=== PATIENT | female | born 1950 | race African-American/Black ===

== ENCOUNTER 2017-06-04 14:06 | Emergency (ER) | payer MEDICARE, OTHER ==
[~2017-06-04] VITALS: Ht 165.1 cm; Wt 87.1 kg
[~2017-06-04 14:06] MED LIST: LANTUS SOL100 UNIT/1 SUBQ; LIPITOR80 MG ORAL; NOVOLOG100 UNIT/3 SUBQ
--- NOTE | 2017-06-04 14:29 | Emergency Room Report ---
History of Present Illness General Chief Complaint: Dizziness Source: Patient, EMS Present Illness HPI 67YOF BIBEMS for dizziness Patient has had 2x episode of dizziness since this morning. Usually resolves when she sits down. Occurs when standing. happened at [employer] Patient believes associated with "its really hot out" Didnt drink enough water today Didnt take HTN or DM meds because "I didnt eat yet" so thats why she was at [employer] EMS states SBP was 80s. Glucose 120 BP improved with IV fluid given Currently has no complaints. Allergies: Coded Allergies: ASPIRIN (Verified Allergy, Unknown, 09/26/16) METFORMIN (Verified Allergy, Unknown, 09/26/16) Patient History Past Medical History: DM, HTN Past Surgical History: none Pertinent Family History: none Social History: Denies: alcohol use, drug use, smoking Now: No Immunizations: UTD Reviewed Nursing Documentation: PMH: Agreed, PSxH: Agreed Nursing Documentation-PMH Hx Hypertension: Yes Hx Diabetes: Yes Review of Systems All Other Systems: negative except mentioned in HPI Physical Exam Vital Signs Date Time Temp Pulse Resp B/P Pulse Ox O2 Delivery O2 Flow Rate FiO2 06/04/17 14:00 98.4 74 18 113/58 97 Sp02 EP Interpretation: reviewed, normal General Appearance: normal inspection, well appearing, no apparent distress, alert, GCS 15, non-toxic, other - Well appearing elderly lady, laughing, talking , in no acute distress Head: normocephalic, atraumatic Eyes: bilateral eye EOMI, bilateral eye PERRL ENT: normal ENT inspection, hearing grossly normal, normal voice Neck: normal inspection, full range of motion, supple, no bony tend Respiratory: normal inspection, lungs clear, normal breath sounds, no respiratory distress, no retraction, no wheezing Cardiovascular #1: regular rate, rhythm, no edema Gastrointestinal: normal inspection, normal bowel sounds, non tender, soft, no guarding, no hernia Genitourinary: no CVA tenderness Musculoskeletal: normal inspection, back normal, normal range of motion, Mahendra' s Sign negative Neurologic: normal inspection, alert, oriented x3, responsive, controller coal or ore III-XII nml as tested, motor strength/tone normal, speech normal Psychiatric: normal inspection, judgement/insight normal, mood/affect normal Skin: normal inspection, normal color, no rash Medical Decision Making Diagnostic Impression: Primary Impression: Dizziness Additional Impressions: Hypotension Qualified Codes: I95.9 - Hypotension, unspecified Dehydration MATEO (acute kidney injury) ER Course Dizziness, hypotension - VSS in ED. Not hypotensive - Elevated serumCr supports Dx of hypotension as cause of dizziness - Improved serumCr after 1L NS - NIHSS 0. Low suspicion for CVA as cause of dizziness - ECG is NSR. Troponin 0. Unlikely ACS as cause of dizziness - Advised PMD followup tomorrow or Thursday to recheck serumCr - given copy of labs DC home EKG Diagnostic Results Rate: normal Rhythm: NSR ST Segments: no acute changes ASA given to the pt in ED: No Rhythm Strip Diag. Results EP Interpretation: yes Rate: 73 Rhythm: NSR, no PVC's, no ectopy Chest X-Ray Diagnostic Results Chest X-Ray Diagnostic Results : Chest X-Ray Ordered: Yes # of Views/Limited/Complete: 1 View Indication: Other - Dizziness EP Interpretation: Yes Interpretation: no consolidation, no effusion, no pneumothorax, no acute cardiopulmonary disease Impression: No acute disease Interpreting ER Provider: Electronically signed by Dr Colvin Last Vital Signs Date Time Temp Pulse Resp B/P Pulse Ox O2 Delivery O2 Flow Rate FiO2 06/04/17 14:00 98.4 74 18 113/58 97 Status: improved Disposition: HOME, SELF-CARE ELIEZER COLVIN M.D. Jun 04, 2017 14:29
[2017-06-04 14:56] LABS: EOSINOPHILS % (AUTO) 0.8 % (0.0-3.0); LYMPHOCYTES % (AUTO) 30.9 % (20.0-45.0); MEAN CORPUSCULAR HEMOGLOBIN 32.1 PG (27.0-31.0); MEAN CORPUSCULAR VOLUME 94 FL (80-99); MEAN PLATELET VOLUME 8.1 FL (6.5-10.1); MONOCYTES % (AUTO) 6.8 % (1.0-10.0); NEUTROPHILS % (AUTO) 60.5 % (45.0-75.0); PLATELET COUNT 271 K/UL (150-450); RED BLOOD COUNT 4.54 M/UL (4.20-5.40); RED CELL DISTRIBUTION WIDTH 12.1 % (11.6-14.8); WHITE BLOOD COUNT 7.4 K/UL (4.8-10.8)
[2017-06-04 14:59] VITALS: BP 117/45
[2017-06-04 15:04] LABS: TROPONIN I < 0.30 ng/mL (<=0.30)
[2017-06-04 15:07] LABS: ALANINE AMINOTRANSFERASE 8 U/L (3-33); ALBUMIN/GLOBULIN RATIO 1.1 (1.0-2.7); ANION GAP 15 (5-15); ASPARTATE AMINO TRANSFERASE 10 U/L (5-40); CALCIUM 9.8 mg/dL (8.6-10.2); CARBON DIOXIDE 24 mEQ/L (20-30); CHLORIDE 101 mEQ/L (98-107); GLOMERULAR FILTRATION RATE 30.3 mL/min (>60); HEMOLYSIS 3; POTASSIUM 4.1 mEQ/L (3.4-4.9); SODIUM 140 mEQ/L (135-145); TOTAL PROTEIN 7.4 g/dL (6.6-8.7)
[2017-06-04 15:17] LABS: CKMB < 1.5 ng/mL (< 3.8)
--- NOTE | 2017-06-04 15:18 | Diagnostic Imaging Report ---
Indication: Dyspnea Comparison: None A single view chest radiograph was obtained. Findings: Cardiomediastinal appearance is within normal limits for age. Pulmonary vascularity is appropriate. The diaphragmatic contour is smooth and costophrenic angles are sharp. No pleural effusions are identified. The bones are osteopenic. Impression: No acute findings
[2017-06-04 16:51] LABS: ALBUMIN/GLOBULIN RATIO 1.2 (1.0-2.7); CALCIUM 8.7 mg/dL (8.6-10.2); CREATININE 1.9 mg/dL (0.5-0.9); GLOMERULAR FILTRATION RATE 32.2 mL/min (>60); POTASSIUM 3.8 mEQ/L (3.4-4.9); TOTAL PROTEIN 6.4 g/dL (6.6-8.7)
[2017-06-04 17:21] VITALS: BP_SYST 117; BP_SYST 142; BP_DIAS 45; BP_DIAS 62
--- NOTE | 2017-06-07 16:25 | Cardiology Report ---
APPROVED REPORT EKG Measurement Heart [id number] Normal sinus rhythm Possible Left atrial enlargement Prolonged QT Abnormal ECG
== END 2017-06-04 17:26 | disposition home or self-care (01) ==
LOC: EDBD 14:06 → EMR 16:16
DX: R42 Dizziness and giddiness (principal); I95.9 Hypotension, unspecified; E86.0 Dehydration; N17.9 Acute kidney failure, unspecified; E11.9 Type 2 diabetes mellitus without complications; I10 Essential (primary) hypertension; Z88.8 Allergy status to other drugs, medicaments and biological substances; Z88.6 Allergy status to analgesic agent
CPT/HCPCS: 36415; 71010; 80053; 82550; 82553; 82962; 84484; 85025; 93005; 96360

== ENCOUNTER 2018-05-12 10:26 | Inpatient (IN) | payer MEDICARE, OTHER ==
[~2018-05-12] VITALS: Ht 167.6 cm; Wt 73.9 kg
[2018-05-12 12:00] VITALS: BP 127/78
[2018-05-12 13:18] VITALS: BP 130/95
[2018-05-12 13:24] LABS: ANION GAP 13 mmol/L (5-15); BLOOD UREA NITROGEN 35 mg/dL (7-18); CALCIUM 9.1 MG/DL (8.5-10.1); CARBON DIOXIDE 24 MMOL/L (21-32); CHLORIDE 100 MMOL/L (98-107); CREATININE 2.5 MG/DL (0.55-1.30); POTASSIUM 3.6 MMOL/L (3.5-5.1); SODIUM 137 MMOL/L (136-145)
[2018-05-12 13:30] LABS: BASOPHILS % (AUTO) 0.9 % (0.0-2.0); EOSINOPHILS % (AUTO) 0.1 % (0.0-3.0); HEMATOCRIT 40.3 % (37.0-47.0); HEMOGLOBIN 13.6 G/DL (12.0-16.0); LYMPHOCYTES % (AUTO) 16.6 % (20.0-45.0); MEAN CORPUSCULAR VOLUME 91 FL (80-99); MONOCYTES % (AUTO) 7.2 % (1.0-10.0); NEUTROPHILS % (AUTO) 75.3 % (45.0-75.0); PLATELET COUNT 262 K/UL (150-450); RED BLOOD COUNT 4.45 M/UL (4.20-5.40); RED CELL DISTRIBUTION WIDTH 12.6 % (11.6-14.8); WHITE BLOOD COUNT 15.4 K/UL (4.8-10.8)
--- NOTE | 2018-05-12 13:30 | Diagnostic Imaging Report ---
Indication: Headache Technique: Contiguous 5 mm thick transaxial imaging of the head obtained in a Siemens Sensation [address] scanner. Soft tissue and bone windows generated. Automatic Exposure Control was utilized. Total Dose length Product (DLP): 1379.[address] Dose Index Volume (CTDIvol): 70.38 mGy Comparison: none Findings: There is mild prominence of the ventricles, basal cisterns, and cerebral sulci consistent with atrophy. Mild, nonspecific, white matter hypoattenuation is noted throughout the brain consistent with chronic small vessel disease. There is no midline shift, edema, acute hemorrhage, mass effect, or abnormal extra-axial fluid collections. Bones and extra osseous soft tissues are unremarkable. Impression: No acute intracranial bleed, mass effect or edema. Mild atrophy of the brain. Nonspecific white matter hypoattenuation probably due to chronic small vessel disease. The CT scanner at [facility] is accredited by the [employer] and the scans are performed using dose optimization techniques as appropriate to a performed exam including Automatic Exposure control.
[2018-05-12 13:35] LABS: ALANINE AMINOTRANSFERASE 16 U/L (12-78); ALBUMIN 3.4 G/DL (3.4-5.0); ALBUMIN/GLOBULIN RATIO 0.7 (1.0-2.7); ALKALINE PHOSPHATASE 204 U/L (46-116); ASPARTATE AMINO TRANSFERASE 16 U/L (15-37); BILIRUBIN,TOTAL 1.5 MG/DL (0.2-1.0)
[2018-05-12 13:36] LABS: BILIRUBIN,DIRECT 0.3 MG/DL (0.0-0.3)
--- NOTE | 2018-05-12 13:38 | Diagnostic Imaging Report ---
Indication: Pain Knee pain/trauma 3 views of the right knee were obtained. Findings: No acute fracture, malalignment, or joint effusion are identified. Joint space is relatively well-maintained. Impression: Negative for acute findings.
--- NOTE | 2018-05-12 13:38 | Diagnostic Imaging Report ---
Indication: Right hip pain. Per patient there is no history of trauma. Patient has numbness in the right upper leg to the foot. Technique: continuous helical imaging in the transaxial plane was performed from the iliac crests to the pubic symphysis with attention to the right hip. Coronal 2-D reformatted images were also generated. Study obtained in a Siemens Sensation [address] total DLP: 569.64 mGycm CTD/vol: 20.03 mGy Comparison: None Findings: There is no evidence of an acute fracture or significant malalignment identified on this examination. Vacuum phenomena within the sacroiliac joints are demonstrated. Moderate facet arthropathy demonstrated incidentally within the visualized part of the lower lumbar spine characterized by hypertrophied and sclerosis. Moderate aortoiliac calcifications are present. Uterus is absent. Urinary bladder is mostly nondistended but there is the suggestion of wall thickening. IMPRESSION: No evidence of acute bony injury with respect to the right hip. Facet arthropathy at L5-S1. Status post hysterectomy. Other incidental findings as above The CT scanner at [facility] is accredited by the [employer] and the scans are performed using dose optimization techniques as appropriate to a performed exam including Automatic Exposure control.
--- NOTE | 2018-05-12 13:38 | Diagnostic Imaging Report ---
Indication: Dyspnea Comparison: 06/04/2017 A single view chest radiograph was obtained. Findings: Cardiomediastinal appearance is within normal limits for age. Pulmonary vascularity is appropriate. The diaphragmatic contour is smooth and costophrenic angles are sharp. No pleural effusions are identified. The bones are osteopenic. Impression: No acute findings
[2018-05-12 13:42] LABS: CKMB 0.7 NG/ML (0.0-3.6)
[2018-05-12 14:30] VITALS: BP 132/52
--- NOTE | 2018-05-12 14:41 | Emergency Room Report ---
History of Present Illness General Chief Complaint: General Complaint Present Illness HPI 68-year-old female presented to the emergency department for right knee pain status post fall this a.m. after having acute onset of weakness and tingling in the right lower extremity. Patient is accompanied by her sister whom states that patient lives alone and has had CVA in the past she also reports that her sister is exhibiting new onset of tremors and constriction of the right arm. She denies alert and oriented. 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 She has a history of high blood pressure, diabetes and some developmental delay. Denies fevers or chills. Denies hitting her head or loss of consciousness this morning when she fell. Patient is also reporting right hip pain that is 6 out of 10 in severity. pt. is insulin dependent DM. Allergies: Coded Allergies: ASPIRIN (Verified Allergy, Unknown, 09/26/16) METFORMIN (Verified Allergy, Unknown, 09/26/16) Patient History Past Medical History: see triage record, DM, HTN Now: No Reviewed Nursing Documentation: PMH: Agreed; PSxH: Agreed Nursing Documentation-PMH Hx Hypertension: Yes Hx Diabetes: Yes Hx Cerebrovascular Accident: Yes Review of Systems All Other Systems: negative except mentioned in HPI Physical Exam Vital Signs Date Time Temp Pulse Resp B/P (MAP) Pulse Ox O2 Delivery O2 Flow Rate FiO2 05/12/18 10:31 98.4 94 18 120/66 95 Room Air 98.4 Sp02 EP Interpretation: reviewed, normal General Appearance: alert, GCS 15, non-toxic, mild distress Head: normocephalic, atraumatic Eyes: bilateral eye normal inspection, bilateral eye PERRL ENT: hearing grossly normal, normal voice Neck: full range of motion Respiratory: chest non-tender, lungs clear, normal breath sounds, speaking full sentences Cardiovascular #1: regular rate, rhythm, no edema, normal capillary refill Gastrointestinal: normal bowel sounds, non tender, soft Rectal: deferred Genitourinary: normal inspection, no CVA tenderness Musculoskeletal: back normal, normal range of motion, other - staggered gait, unable to weight bear on right leg. , tender - Calf ttp, bilaterally, and TTP to the dorsum of feet bilaterally. FROM noted, pt. unable to weight bear on right leg. TTP to the Right knee and HIP Neurologic: alert, oriented x3, responsive, motor strength/tone normal, sensory intact, speech normal, other - negative pronator, no facial droop, paresthesia of right foot. no motor weaknesses. , grossly normal Psychiatric: judgement/insight normal Skin: normal color, no rash, warm/dry, well hydrated Medical Decision Making PA Attestation Dr. Styles is my supervising Physician whom patient management has been discussed with. Diagnostic Impression: Primary Impression: UTI (urinary tract infection) Qualified Codes: N30.01 - Acute cystitis with hematuria Additional Impressions: Weakness of extremity Paresthesia of both lower extremities ER Course 68-year-old female presented to the emergency department for right knee pain status post fall this a.m. after having acute onset of weakness and tingling in the right lower extremity. Patient is accompanied by her sister whom states that patient lives alone and has had CVA in the past she also reports that her sister is exhibiting new onset of tremors and constriction of the right arm. She denies alert and oriented. 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 She has a history of high blood pressure, diabetes and some developmental delay. Denies fevers or chills. Denies hitting her head or loss of consciousness this morning when she fell. Patient is also reporting right hip pain that is 6 out of 10 in severity. pt. is insulin dependent DM. PE : No focal neuro deficit, tremulous, right arm is contracted. pt. NAD, non- toxic in appearance MDM Cardiac workup as well as head CT is performed, d/w attending physician Ct L- spine, at this time deferred due to radiculopathy symptoms with no gross neurological deficits. LABS -Patient is noted to have Wbc's 15.4 Creatinine of 2.5, BUN :35, and elevated alk phos. otherwise labs are for the most part unremarkable. -UA: positive for UTI CT head noncontrast: Negative CT Pelvis noncontrast: Negative for acute fx. - X-ray right knee: Negative INTERVENTIONS: -1 LIter NS BOlus - Rocephin IV DISPOSITION: at this time pt. will be admitted to Dr. Yoon for acute onset unilateral weakness, and UTI. Dr. Yoon agreed to admit the pt. and to continue pt. care management. Pt currently awaiting inpatient bed. Labs Test 05/12/18 12:35 05/12/18 14:50 White Blood Count 15.4 K/UL (4.8-10.8) Red Blood Count 4.45 M/UL (4.20-5.40) Hemoglobin 13.6 G/DL (12.0-16.0) Hematocrit 40.3 % (37.0-47.0) Mean Corpuscular Volume 91 FL (80-99) Mean Corpuscular Hemoglobin 30.5 PG (27.0-31.0) Mean Corpuscular Hemoglobin Concent 33.7 G/DL (32.0-36.0) Red Cell Distribution Width 12.6 % (11.6-14.8) Platelet Count 262 K/UL (150-450) Mean Platelet Volume 8.0 FL (6.5-10.1) Neutrophils (%) (Auto) 75.3 % (45.0-75.0) Lymphocytes (%) (Auto) 16.6 % (20.0-45.0) Monocytes (%) (Auto) 7.2 % (1.0-10.0) Eosinophils (%) (Auto) 0.1 % (0.0-3.0) Basophils (%) (Auto) 0.9 % (0.0-2.0) Sodium Level 137 MMOL/L (136-145) Potassium Level 3.6 MMOL/L (3.5-5.1) Chloride Level 100 MMOL/L (98-107) Carbon Dioxide Level 24 MMOL/L (21-32) Anion Gap 13 mmol/L (5-15) Blood Urea Nitrogen 35 mg/dL (7-18) Creatinine 2.5 MG/DL (0.55-1.30) Estimat Glomerular Filtration Rate 23.4 mL/min (>60) Glucose Level 385 MG/DL (74-106) Calcium Level 9.1 MG/DL (8.5-10.1) Total Bilirubin 1.5 MG/DL (0.2-1.0) Direct Bilirubin 0.3 MG/DL (0.0-0.3) Aspartate Amino Transf (AST/SGOT) 16 U/L (15-37) Alanine Aminotransferase (ALT/SGPT) 16 U/L (12-78) Alkaline Phosphatase 204 U/L (46-116) Total Creatine Kinase 251 U/L (26-308) Creatine Kinase MB 0.7 NG/ML (0.0-3.6) Creatine Kinase MB Relative Index 0.2 Troponin I 0.017 ng/mL (0.000-0.056) Total Protein 8.3 G/DL (6.4-8.2) Albumin 3.4 G/DL (3.4-5.0) Globulin 4.9 g/dL Albumin/Globulin Ratio 0.7 (1.0-2.7) Urine Color Yellow Urine Appearance Turbid Urine pH 5 (4.5-8.0) Urine Specific [place] 1.015 (1.005-1.035) Urine Protein 3+ (NEGATIVE) Urine Glucose (UA) 4+ (NEGATIVE) Urine Ketones Negative (NEGATIVE) Urine Occult Blood 5+ (NEGATIVE) Urine Nitrite Negative (NEGATIVE) Urine Bilirubin Negative (NEGATIVE) Urine Urobilinogen Normal MG/DL (0.0-1.0) Urine Leukocyte Esterase 2+ (NEGATIVE) Urine RBC 5-10 /HPF (0 - 2) Urine WBC 20-30 /HPF (0 - 2) Urine Squamous Epithelial Cells Moderate /LPF (NONE/OCC) Urine Amorphous Sediment Few /LPF (NONE) Urine Bacteria Moderate /HPF (NONE) EKG Diagnostic Results EP Interpretation: Dr. Styles Rate: tachycardiac - 105bpm Rhythm: NSR ST Segments: no acute changes ASA given to the pt in ED: No PA Scribe Text This Interpretation was scribed by JOHNNY Romero. Chest X-Ray Diagnostic Results Chest X-Ray Diagnostic Results : Chest X-Ray Ordered: Yes # of Views/Limited/Complete: 1 View Indication: Chest Pain EP Interpretation: Yes PA Xray: Interpretation reviewed, by supervising MD, and agrees with findings. Interpretation: no consolidation, no effusion, no pneumothorax, no acute cardiopulmonary disease Impression: No acute disease Other X-Ray Diagnostic Results Other X-Ray Diagnostic Results : X-Ray ordered: Right knee # of Views/Limited Vs Complete: 3 View Indication: Pain EP Interpretation: Yes PA Xray: Interpretation reviewed, by supervising MD, and agrees with findings. Interpretation: no dislocation, no soft tissue swelling, no fractures Impression: No acute disease Electronically Signed by: Yara Romero PA-C CT/MRI/US Diagnostic Results CT/MRI/US Diagnostic Results #1: Imaging Test Ordered: Ct Head Non Con Impression " No evidence of acute fracture, hemorrhage, or intracranial process " Per official radiology report- Please see report for specific details. CT/MRI/US Diagnostic Results #2: Imaging Test Ordered: CT Right HIP Impression " no acute fractures" Per official radiology report- Please see report for specific details. Last Vital Signs Date Time Temp Pulse Resp B/P (MAP) Pulse Ox O2 Delivery O2 Flow Rate FiO2 05/12/18 13:18 98.2 104 12 130/95 99 Room Air 98.2 Disposition: ADMITTED INPATIENT Condition: Serious Signed Out To: Dr. Maher Referrals: NON PHYSICIAN (PCP) Yara Romero May 12, 2018 14:41
[2018-05-12 14:55] LABS: APPEARANCE,URINE TURBID; BILIRUBIN, URINE NEGATIVE (NEGATIVE); COLOR,URINE YELLOW; GLUCOSE, URINE (UA) 4+ (NEGATIVE); KETONES,URINE NEGATIVE (NEGATIVE); LEUKOCYTE ESTERASE ,URINE 2+ (NEGATIVE); NITRITE,URINE NEGATIVE (NEGATIVE); PH,URINE 5 (4.5-8.0); PROTEIN,URINE 3+ (NEGATIVE); UROBILINOGEN,URINE NORMAL MG/DL (0.0-1.0)
[2018-05-12] MEDS ORDERED: cefTRIAXone 1 GM in NS 55 ML IVPB ONE (15:45)
--- NOTE | 2018-05-12 17:05 | Diagnostic Imaging Report ---
Indication: Back pain Technique: MRI examination of the lumbar spine was performed in a 1.5 Jerrica magnet. Sequences obtained include sagittal and axial T1 and T2 fast spin echo, and sagittal STIR. Comparison: none Findings: Study is significantly degraded by motion. No bone marrow signal abnormalities identified. The intervertebral discs appear relatively normal in height. Vertebral bodies are normal in height and signal. The visualized part of the distal spinal cord appears normal. The cord terminates with visualization of the conus medullaris at the mid L2 level. This is slightly low-lying. No stigmata of tethered cord demonstrated. Paravertebral and paraspinous soft tissues are unremarkable. L1-2: Mild hypertrophy of the facets noted. L2-3: Mild hypertrophy of the facets demonstrated. L3-4: Mild to moderate hypertrophy of the facets demonstrated. Mild to moderate bilateral foraminal stenosis demonstrated. L4-5: Mild narrowing of the central canal and lateral recesses demonstrated due to moderate facet arthropathy. Moderate to severe bilateral foraminal stenosis demonstrated. L5-S1: Minimal anterolisthesis noted. Moderate hypertrophy of the facets demonstrated. Moderate to severe foraminal stenosis demonstrated. IMPRESSION: Chronic degenerative spondylosis multiple levels as described above largely characterized by facet arthropathy. Central spinal stenosis L4-5. Moderate to severe bilateral foraminal stenosis. L5-S1 moderate to severe bilateral foraminal stenosis. L3-4 mild to moderate bilateral foraminal stenosis.
--- NOTE | 2018-05-12 17:31 | Consultation ---
Consult Note Consult Note NEUROLOGY CONSULTATION: Full note dictated #[id number] Ms. Tammy Gupta is a 68 y/o, RH, BF with a PH of HTN and DM. She got out of bed this morning and stood up and her legs collapsed. She was unable to walk following that and she was thus brought [place] [facility] At this time she complains of pain, numbness and weakness in both LEs. ON EXAM: Disoriented to exact date. Problems with recent and remote memory. Problems with HCF and language. Give way weakness in BLE. Global areflexia with flexor plantars. Inability to stand and walk. No point tenderness in back. IMPRESSION: Fall earlier due to legs giving way and now inability to walk due to pain, numbness and weakness in both LEs. UTI. DM - not controlled. REC: Agree with MRI of LS spine. Rx of UTI and DM. Mobilize with PT/OT Sahara Bunn M.D., M.S.P.H. SAHARA BUNN May 12, 2018 17:31
[2018-05-12 18:00] VITALS: BP 152/68
[2018-05-12] MEDS ORDERED: HYDROCHLOROTHIA25 MG ORAL (18:19)
[2018-05-12] MEDS ORDERED: LEVOFLOXACIN500 MG ORAL (18:19)
[2018-05-12] MEDS ORDERED: GABAPENTIN600 MG ORAL (18:19)
[2018-05-12] MEDS ORDERED: LISINOPRIL20 MG ORAL (18:19)
--- NOTE | 2018-05-12 20:08 | Infectious Diseases Prog Note ---
Assessment/Plan Problems: (1) UTI (urinary tract infection) Assessment & Plan: will send urine culture and continue ceftriaxon (2) Weakness of extremity Assessment & Plan: rule out CVA, neurology is following (3) Leukocytosis Assessment & Plan: suspect due to UTI and dehydration , monitor CBC Subjective Allergies: Coded Allergies: ASPIRIN (Verified Allergy, Unknown, 09/26/16) METFORMIN (Verified Allergy, Unknown, 09/26/16) Objective Vital Signs Last 24 Hour Vital Signs Date Time Temp Pulse Resp B/P (MAP) Pulse Ox O2 Delivery O2 Flow Rate FiO2 05/12/18 18:00 98.3 99 20 152/68 97 Room Air 98.3 05/12/18 14:30 98.0 93 20 132/52 100 Room Air 98.0 05/12/18 13:18 98.2 104 12 130/95 99 Room Air 98.2 05/12/18 12:00 98.5 102 16 127/78 95 Room Air 98.5 05/12/18 10:31 98.4 94 18 120/66 95 Room Air 98.4 Height (Feet): 5 Height (Inches): 6.00 Weight (Pounds): 196 Laboratory Tests Test 05/12/18 12:35 05/12/18 14:50 White Blood Count 15.4 K/UL (4.8-10.8) H Red Blood Count 4.45 M/UL (4.20-5.40) Hemoglobin 13.6 G/DL (12.0-16.0) Hematocrit 40.3 % (37.0-47.0) Mean Corpuscular Volume 91 FL (80-99) Mean Corpuscular Hemoglobin 30.5 PG (27.0-31.0) Mean Corpuscular Hemoglobin Concent 33.7 G/DL (32.0-36.0) Red Cell Distribution Width 12.6 % (11.6-14.8) Platelet Count 262 K/UL (150-450) Mean Platelet Volume 8.0 FL (6.5-10.1) Neutrophils (%) (Auto) 75.3 % (45.0-75.0) H Lymphocytes (%) (Auto) 16.6 % (20.0-45.0) L Monocytes (%) (Auto) 7.2 % (1.0-10.0) Eosinophils (%) (Auto) 0.1 % (0.0-3.0) Basophils (%) (Auto) 0.9 % (0.0-2.0) Sodium Level 137 MMOL/L (136-145) Potassium Level 3.6 MMOL/L (3.5-5.1) Chloride Level 100 MMOL/L (98-107) Carbon Dioxide Level 24 MMOL/L (21-32) Anion Gap 13 mmol/L (5-15) Blood Urea Nitrogen 35 mg/dL (7-18) H Creatinine 2.5 MG/DL (0.55-1.30) H Estimat Glomerular Filtration Rate 23.4 mL/min (>60) Glucose Level 385 MG/DL (74-106) H Calcium Level 9.1 MG/DL (8.5-10.1) Total Bilirubin 1.5 MG/DL (0.2-1.0) H Direct Bilirubin 0.3 MG/DL (0.0-0.3) Aspartate Amino Transf (AST/SGOT) 16 U/L (15-37) Alanine Aminotransferase (ALT/SGPT) 16 U/L (12-78) Alkaline Phosphatase 204 U/L (46-116) H Total Creatine Kinase 251 U/L (26-308) Creatine Kinase MB 0.7 NG/ML (0.0-3.6) Creatine Kinase MB Relative Index 0.2 Troponin I 0.017 ng/mL (0.000-0.056) Total Protein 8.3 G/DL (6.4-8.2) H Albumin 3.4 G/DL (3.4-5.0) Globulin 4.9 g/dL Albumin/Globulin Ratio 0.7 (1.0-2.7) L Urine Color Yellow Urine Appearance Turbid Urine pH 5 (4.5-8.0) Urine Specific [place] 1.015 (1.005-1.035) Urine Protein 3+ (NEGATIVE) H Urine Glucose (UA) 4+ (NEGATIVE) H Urine Ketones Negative (NEGATIVE) Urine Occult Blood 5+ (NEGATIVE) H Urine Nitrite Negative (NEGATIVE) Urine Bilirubin Negative (NEGATIVE) Urine Urobilinogen Normal MG/DL (0.0-1.0) Urine Leukocyte Esterase 2+ (NEGATIVE) H Urine RBC 5-10 /HPF (0 - 2) H Urine WBC 20-30 /HPF (0 - 2) H Urine Squamous Epithelial Cells Moderate /LPF (NONE/OCC) H Urine Amorphous Sediment Few /LPF (NONE) H Urine Bacteria Moderate /HPF (NONE) H Current Medications Medications (Trade) Dose Ordered Sig/Jhon Route PRN Reason Start Time Stop Time Status Last Admin Dose Admin Acetaminophen (Tylenol) 650 mg Q4H PRN ORAL Mild Pain (Pain Scale 1-3) 05/12/18 16:45 06/11/18 16:44 Atorvastatin Calcium (Lipitor) 80 mg QHS ORAL 05/12/18 21:00 06/11/18 20:59 Dextrose (Dextrose 50%) 25 ml STAT PRN IV Hypoglycemia 05/12/18 16:45 06/11/18 16:44 Dextrose (Dextrose 50%) 50 ml STAT PRN IV Hypoglycemia 05/12/18 16:45 06/11/18 16:44 Diphenhydramine HCl (Benadryl) 25 mg Q6H PRN ORAL Itching/Pruritis 05/12/18 16:45 06/11/18 16:44 Docusate Sodium (Colace) 100 mg EVERY 12 HOURS ORAL 05/12/18 21:00 06/11/18 20:59 Heparin Sodium (Porcine) (Heparin 5000 units/ml) 5,000 units EVERY 8 HOURS SUBQ 05/12/18 22:00 06/11/18 21:59 Insulin Aspart (NovoLOG) BEFORE MEALS AND HS SUBQ 05/12/18 21:00 06/11/18 20:59 Ondansetron HCl (Zofran) 4 mg Q6H PRN IVP Nausea & Vomiting 05/12/18 16:45 06/11/18 16:44 Sodium Chloride 1,000 ml @ 75 mls/hr [id number] IVLG 05/12/18 19:00 06/11/18 18:59 Alexis Bernard M.D. May 12, 2018 20:08
[2018-05-12] MEDS ORDERED: Insulin Human Regular 100units/ml 3ml IV ONE (21:30)
[2018-05-12 21:50] VITALS: BP 124/45
[2018-05-12 22:15] VITALS: BP 116/65
--- NOTE | 2018-05-12 22:15 | History and Physical Report ---
DATE OF ADMISSION: 05/12/2018 REASON FOR ADMISSION: 1. Lower extremity weakness. 2. UTI. 3. Leukocytosis. HISTORY OF PRESENT ILLNESS: The patient is a 68-year-old black female who presented to the emergency room after falling from her bed. It seems that the patient this morning was coming out of her bed at approximately 7 a.m. and slightly fell over to the floor. She picked herself up and since then, her family member said that both her right and left legs have been weak and she is having to use a cane now to move since 7 o'clock this morning and she is feeling weak, tired, and fatigued. 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 Family member at bedside says that she has not been checking her diabetes and taking her medications regularly and since this morning at approximately 7 a.m., the patient has been not herself, weak overall, especially in her legs and not able to support herself. PAST MEDICAL HISTORY: 1. Obesity. 2. Diabetes mellitus. 3. Hyperlipidemia. 4. CVA. PAST SURGICAL HISTORY: Noncontributory. FAMILY HISTORY: Positive for diabetes, hypertension, and hyperlipidemia. REVIEW OF SYSTEMS: NEUROLOGIC: The patient denies headache, change in vision, syncope or presyncopal episodes. CARDIOVASCULAR: No current chest pain, palpitations, or angina. PULMONARY: No difficulty breathing, productive cough or sputum. GASTROINTESTINAL/GENITOURINARY: No nausea, vomiting or diarrhea. ENDOCRINOLOGY: No night sweats, fever, or chills. MUSCULOSKELETAL: The patient complaining of lower extremity weakness, right side greater than left. LABORATORY AND DIAGNOSTIC DATA: Labs dated 05/12/2018, positive urine for possible infection. Sodium 137, potassium 3.6, creatinine 2.5, and BUN 35. CPK 251. Troponin 0.017. Albumin 3.4. White cell count 15.4, hemoglobin 13.6, and platelet count 262. PHYSICAL EXAMINATION: GENERAL: The patient awake, alert, in no obvious distress. VITAL SIGNS: Blood pressure 132/52, oxygen saturation 100% on room air, pulse 93, and temperature 98.0 degrees. HEENT: Extraocular muscles intact. Oropharyngeal mucosa clear and dry. CARDIOVASCULAR: S1 and S2. No rubs or gallops. PULMONARY: Clear to auscultation bilaterally. No rales, rhonchi or wheezes. ABDOMEN: Obese, nontender and nondistended. EXTREMITIES: No edema. Fair pedal pulses. MUSCULOSKELETAL: The patient has 2 to 3+ strength in bilateral lower extremities. ASSESSMENT AND PLAN: 1. Urinary tract infection with leukocytosis. At this time, IV antibiotics, Rocephin has been given. We will consult Infectious Disease for further evaluation and management. 2. Lower extremity weakness, bilateral in nature initiated at 7 a.m. today. At this time, this could be secondary to decompensation due to UTI. She does have a history of prior CVA. Urinary tract infection may be causing a decompensation and weakness. Neurology, Dr. Bunn has been consulted for further evaluation and management. CT of the head was negative and MRI is pending that was ordered in the emergency room. 3. Diabetes mellitus. We will initiate insulin sliding scale, low carbohydrate diet and Accu-Cheks. 4. Hyperlipidemia. Continue Lipitor. 5. DVT prophylaxis with heparin subcutaneous. 6. MATEO- due to UTI and volume depletion. Monitor. Renal US ordered Travis Yoon MD DR: MIGUELITO JOB#: [id number] CC: TARA
[2018-05-12] MEDS: Docusate 100mg cap ORAL SCH (22:24)
[2018-05-12] MEDS: Atorvastatin 80mg tab ORAL SCH (22:24)
[2018-05-12] MEDS: NovoLOG Insulin Flexpen SUBQ SCH (22:25)
[2018-05-12] MEDS: Heparin 5000 units/ml inj SUBQ SCH (22:26)
--- NOTE | 2018-05-12 23:30 | Consultation ---
DATE OF CONSULTATION: 05/12/2018 NEUROLOGY CONSULTATION HISTORY: Ms. Tammy Gupta is a 68-year-old, right-handed, black lady, who does have a past history of hypertension and diabetes mellitus. She was functioning relatively well until this morning when she got out of bed and stood up and her legs collapsed . She was unable to get up and walk again. The paramedics were called in and she was brought in to the [facility] emergency room. At this point in time, she complains of pain, numbness, and weakness in both her lower extremities. She also complains of pain in her low back. She denies any similar symptoms in the past. She denies any loss of consciousness and she also denies any problems with speech, language, vision, or other neurological symptoms. PAST MEDICAL HISTORY: Significant for hypertension and diabetes mellitus for numerous years that are not well-controlled. FAMILY HISTORY: Significant for high blood pressure and diabetes mellitus in other family members. PERSONAL HISTORY: Home: She lives with her sister. Work: She is retired now. Habits: She smokes approximately a pack of cigarettes in eby-knc-i-half day. She denies the use of alcohol or illicit drugs. PRESENT MEDICATIONS: Include heparin for DVT prophylaxis, insulin, atorvastatin, Tylenol p.r.n., Zofran p.r.n., and Benadryl p.r.n. She also got a dose of ceftriaxone intravenously earlier. PHYSICAL EXAMINATION: GENERAL: She is a well-developed, well-nourished, slightly obese black lady, lying in an emergency room gurney, in no acute distress. VITAL SIGNS: Pulse 93/minute, blood pressure 132/52 mmHg, respirations 20/minute, and temperature 98 degrees Fahrenheit. HEAD: Normocephalic and atraumatic. EENT: Examination benign. NECK: No neck rigidity was observed. NEUROLOGICAL EXAMINATION: MENTAL STATUS EXAMINATION: She was awake and alert. She was oriented to person, place, and time except for the exact date. She was able to recall 3/3 words immediately, but could only remember 2/3 words in 1 minute and 3 minutes. She was able to remember presidents, Trump and Obama, but could not remember presidents prior to that. Her mathematical skills were impaired. Her visuospatial function was also impaired. SPEECH: She had a mild dysarthria, but it should be noted that she was edentulous. LANGUAGE: She had an anomia for low-frequency words, however, it is unclear as to what her educational level is. CRANIAL NERVE EXAMINATION: II: The visual kim were intact on confrontation testing. III, IV & : The external ocular movements were full and the pupils 3 mm in diameter, equal, round, regular, and reactive to light. V: She had normal facial sensations, and the temporales, masseters, and pterygoids functioned normally. VII: She had normal facial expressions and no facial asymmetry. VIII: She was able to hear well bilaterally and had no nystagmus. IX: The palate moved symmetrically on phonation. X: She had no hoarseness of voice. XI: The sternocleidomastoids and trapezii functioned normally. XII: The tongue was in midline without any fasciculations or atrophy. MOTOR SYSTEM: The tone was normal in all four extremities. Examination of muscle mass revealed no focal wasting. Examination of power revealed G 5/5 power in both upper extremities. In both lower extremities, she also exhibited G 5/5 power with significant give-way weakness making exact assessment of power impossible in both lower extremities. SENSORY EXAMINATION: She had intact sensations to pinprick, light touch, and graphesthesia, but she complained of altered sensations in the right leg more than the left leg. REFLEXES: 0 at the biceps, triceps, brachioradialis, knees, and ankles. The plantar responses were flexor bilaterally. COORDINATION: She performed well on [id number] testing. She was unable to perform [id number]-wl-xfet testing. STANCE & GAIT: Could not be tested because she refused to stand and walk. DIAGNOSTIC IMPRESSION: 1. Ms. Tammy Gupta is a 68-year-old, right-handed, black lady, with a past history of hypertension and diabetes mellitus, who got out of bed this morning and her legs collapsed. Since then, she has been unable to walk because of pain, numbness, and weakness in both her lower extremities. She also has some low back pain. 2. On neurological examination, at this time, she is disoriented to the exact date. She has problems with recent and remote memory, visuospatial function, higher cognitive function, and language. She also exhibits give-way weakness in both lower extremities, but has good power otherwise. Her deep tendon reflexes are globally absent. The plantar responses are flexor. She refuses to stand and walk. 3. Laboratory data obtained thus far revealed that her WBC count is elevated to 15,400 with a left-sided shift with 75% neutrophils. The chemistry panel reveals that the BUN is elevated at 35, creatinine is elevated at 2.5, and blood glucose is elevated at 385. Her urinalysis reveals 2+ leukocyte esterase, and 5-10 red blood cells, and 20-30 white blood cells with a moderate amount of bacteria in the urine. 4. The CT scan of the brain without contrast is benign for acute pathology, but does reveal some atrophy and deep white matter changes. 5. The patient's history, neurological examination, laboratory data, and imaging studies are most compatible with a fall earlier today due to her legs giving way and now, an inability to walk due to pain, numbness, and weakness in both her lower extremities. In addition, she also has a urinary tract infection, and diabetes out of control. RECOMMENDATIONS: 1. Agree with management thus far. 2. Agree with treating the patient's urinary tract infection in an aggressive manner. 3. The patient's blood sugar should also be treated in an aggressive manner. 4. An MRI scan of the lumbosacral spine has been ordered and I shall review it when it is done. 5. Attempts should be made to mobilize the patient rapidly with the help of physical and occupational therapy. Thank you for entrusting me with the care of Ms. Gupta. I shall follow her with you. Phani Bunn M.D., M.S.P.H. DR: GAMALIEL JOB#: [id number] TARA
[2018-05-13] VITALS: BP 121/69
[2018-05-13 04:00] VITALS: BP 108/36
[2018-05-13 04:57] LABS: BASOPHILS % (AUTO) 0.9 % (0.0-2.0); EOSINOPHILS % (AUTO) 0.3 % (0.0-3.0); HEMATOCRIT 33.4 % (37.0-47.0); HEMOGLOBIN 11.6 G/DL (12.0-16.0); LYMPHOCYTES % (AUTO) 19.6 % (20.0-45.0); MEAN CORPUSCULAR VOLUME 89 FL (80-99); MONOCYTES % (AUTO) 8.4 % (1.0-10.0); NEUTROPHILS % (AUTO) 70.8 % (45.0-75.0); PLATELET COUNT 214 K/UL (150-450); RED BLOOD COUNT 3.76 M/UL (4.20-5.40); RED CELL DISTRIBUTION WIDTH 12.1 % (11.6-14.8); WHITE BLOOD COUNT 14.5 K/UL (4.8-10.8)
[2018-05-13 05:23] LABS: ANION GAP 10 mmol/L (5-15); BLOOD UREA NITROGEN 32 mg/dL (7-18); CALCIUM 8.5 MG/DL (8.5-10.1); CARBON DIOXIDE 23 MMOL/L (21-32); CHLORIDE 103 MMOL/L (98-107); POTASSIUM 3.5 MMOL/L (3.5-5.1); SODIUM 136 MMOL/L (136-145)
[2018-05-13 05:31] LABS: ALANINE AMINOTRANSFERASE 12 U/L (12-78); ALBUMIN 2.6 G/DL (3.4-5.0); ALBUMIN/GLOBULIN RATIO 0.6 (1.0-2.7); ALKALINE PHOSPHATASE 159 U/L (46-116); ASPARTATE AMINO TRANSFERASE 21 U/L (15-37); BILIRUBIN,TOTAL 1.1 MG/DL (0.2-1.0)
[2018-05-13 05:47] LABS: BILIRUBIN,DIRECT 0.3 MG/DL (0.0-0.3)
[2018-05-13] MEDS: Heparin 5000 units/ml inj SUBQ SCH ×3 (05:52→22:29)
[2018-05-13] MEDS: NovoLOG Insulin Flexpen SUBQ SCH ×4 (05:53→21:37)
[2018-05-13 08:00] VITALS: BP 143/78
[2018-05-13] MEDS ORDERED: Vancomycin 1250mg/D5W 250ml IVPB ONE (08:00)
--- NOTE | 2018-05-13 08:36 | Nephrology Progress Note ---
Assessment/Plan Assessment/Plan 1. LE Weakness- previous CVA - likley due to decompensation from underlying UTI - MRI complete - much apreciate neurology 2. UTI- Abx per ID 3. DM- on ISS. restart lantus 4. MATEO- Cr down to 2. Continue Abx and IVFs - renal US pending 5. DVT prphylaxsis with heparin Subjective Date patient seen: May 13, 2018 Time patient seen: 08:34 ROS Limited/Unobtainable: No Constitutional: Reports: weakness Allergies: Coded Allergies: ASPIRIN (Verified Allergy, Unknown, 09/26/16) METFORMIN (Verified Allergy, Unknown, 09/26/16) All Systems: reviewed and negative except above Subjective Patient had febrile episodes. Feeling weak Objective Last 24 Hour Vital Signs Date Time Temp Pulse Resp B/P (MAP) Pulse Ox O2 Delivery O2 Flow Rate FiO2 05/13/18 05:56 98.4 98.4 05/13/18 05:55 98.4 05/13/18 04:00 100.0 79 18 108/36 (60) 99 100.0 05/13/18 03:08 98.8 98.8 05/13/18 01:30 102.4 102.4 05/13/18 00:29 101.7 05/13/18 00:00 101.7 95 19 121/69 (86) 94 101.7 05/12/18 22:47 Room Air 05/12/18 22:15 98.1 96 19 116/65 (82) 94 98.1 05/12/18 21:50 98.3 89 23 124/45 100 Room Air 208.9 05/12/18 21:50 98.3 89 23 124/45 100 Room Air 98.3 05/12/18 18:00 98.3 99 20 152/68 97 Room Air 98.3 05/12/18 14:30 98.0 93 20 132/52 100 Room Air 98.0 05/12/18 13:18 98.2 104 12 130/95 99 Room Air 98.2 05/12/18 12:00 98.5 102 16 127/78 95 Room Air 98.5 05/12/18 10:31 98.4 94 18 120/66 95 Room Air 98.4 Intake and Output 05/12/18 05/13/18 19:00 07:00 Intake Total 1050 ml 885 ml Balance 1050 ml 885 ml Intake Oral 0 ml 240 ml IV Total 1050 ml 645 ml # Voids 3 1 Laboratory Tests 05/12/18 12:35: White Blood Count 15.4H, Red Blood Count 4.45, Hemoglobin 13.6, Hematocrit 40.3 , Mean Corpuscular Volume 91, Mean Corpuscular Hemoglobin 30.5, Mean Corpuscular Hemoglobin Concent 33.7, Red Cell Distribution Width 12.6, Platelet Count 262, Mean Platelet Volume 8.0, Neutrophils (%) (Auto) 75.3H, Lymphocytes ( %) (Auto) 16.6L, Monocytes (%) (Auto) 7.2, Eosinophils (%) (Auto) 0.1, Basophils (%) (Auto) 0.9, Erythrocyte Sedimentation Rate 35H, Sodium Level 137, Potassium Level 3.6, Chloride Level 100, Carbon Dioxide Level 24, Anion Gap 13, Blood Urea Nitrogen 35H, Creatinine 2.5H, Estimat Glomerular Filtration Rate 23.4, Glucose Level 385H, Hemoglobin A1c 11.8H, Calcium Level 9.1, Total Bilirubin 1.5H, Direct Bilirubin 0.3, Aspartate Amino Transf (AST/SGOT) 16, Alanine Aminotransferase (ALT/SGPT) 16, Alkaline Phosphatase 204H, Total Creatine Kinase 251, Creatine Kinase MB 0.7, Creatine Kinase MB Relative Index 0.2, Troponin I 0.017, Total Protein 8.3H, Total Protein (PEP) [Pending], Albumin 3.4, Albumin (PEP) [Pending], Globulin 4.9, Globulin (PEP) [Pending], Albumin/Globulin Ratio [Pending], [id number] [Pending], Alpha-2- Globulins [Pending], Beta Globulins [Pending], Beta Gamma Globulin [Pending], PEP Abnormal Protein Bands [Pending], Protein Electrophoresis Interpret [Pending ], Vitamin B12 Level 680, Vitamin D 25-Hydroxy [Pending], 25-Hydroxy Vitamin D2 [Pending], 25-Hydroxy Vitamin D3 [Pending], Folate 19.3, Thyroid Stimulating Hormone (TSH) 1.562, Rapid Plasma Reagin [Pending] 05/12/18 14:50: Urine Color Yellow, Urine Appearance Turbid, Urine pH 5, Urine Specific [place] 1.015, Urine Protein 3+H, Urine Glucose (UA) 4+H, Urine Ketones Negative, Urine Occult Blood 5+H, Urine Nitrite Negative, Urine Bilirubin Negative, Urine Urobilinogen Normal, Urine Leukocyte Esterase 2+H, Urine RBC 5-10H, Urine WBC 20 -30H, Urine Squamous Epithelial Cells ModerateH, Urine Amorphous Sediment FewH, Urine Bacteria ModerateH 05/13/18 04:35: White Blood Count 14.5H, Red Blood Count 3.76L, Hemoglobin 11.6L, Hematocrit 33.4L, Mean Corpuscular Volume 89, Mean Corpuscular Hemoglobin 30.9, Mean Corpuscular Hemoglobin Concent 34.7, Red Cell Distribution Width 12.1, Platelet Count 214, Mean Platelet Volume 8.4, Neutrophils (%) (Auto) 70.8, Lymphocytes (% ) (Auto) 19.6L, Monocytes (%) (Auto) 8.4, Eosinophils (%) (Auto) 0.3, Basophils (%) (Auto) 0.9, Sodium Level 136, Potassium Level 3.5, Chloride Level 103, Carbon Dioxide Level 23, Anion Gap 10, Blood Urea Nitrogen 32H, Creatinine 2.0H , Estimat Glomerular Filtration Rate 30.2, Glucose Level 260#H, Calcium Level 8.5, Total Bilirubin 1.1H, Direct Bilirubin 0.3, Aspartate Amino Transf (AST/ SGOT) 21, Alanine Aminotransferase (ALT/SGPT) 12, Alkaline Phosphatase 159H, Total Protein 6.7, Albumin 2.6L, Globulin 4.1, Albumin/Globulin Ratio 0.6L Height (Feet): 5 Height (Inches): 6.00 Weight (Pounds): 196 General Appearance: no apparent distress, alert EENT: normal ENT inspection Neck: non-tender, normal alignment, supple Cardiovascular: normal rate, regular rhythm Respiratory/Chest: lungs clear, normal breath sounds Edema: no edema noted Arm (L), no edema noted Arm (R), no edema noted Leg (L), no edema noted Leg (R), no edema noted Pedal (L), no edema noted Pedal (R), no edema noted Generalized Travis Yoon M.D. May 13, 2018 08:36
[2018-05-13] MEDS ORDERED: cefTRIAXone 1 GM in D5W 110 ML IVPB SCH (09:00)
[2018-05-13] MEDS: Docusate 100mg cap ORAL SCH ×2 (09:02→21:31)
[2018-05-13] MEDS: Piperacillin/Tazobactam 3.375 GM in NS 110 ML IVPB SCH ×4 (09:13→18:00)
--- NOTE | 2018-05-13 09:33 | Neurology Progress Note ---
Interim History Interim History Interim History Ms. Gupta feels much better today. The mind is clear. She feels stronger. She is able to stand and walk again. She still has numbness in both her legs. The pain in her legs is better. The strength in the legs is also better. She denies any new neurologic symptoms. Review of Systems Neuro Review of Systems Benign. Objective Physical Exam Last Vital Signs Date Time Temp Pulse Resp B/P (MAP) Pulse Ox O2 Delivery O2 Flow Rate FiO2 05/13/18 05:56 98.4 98.4 05/13/18 04:00 79 18 108/36 (60) 99 05/12/18 22:47 Room Air Laboratory Tests Test 05/12/18 12:35 05/12/18 14:50 05/13/18 04:35 White Blood Count 15.4 K/UL (4.8-10.8) H 14.5 K/UL (4.8-10.8) H Red Blood Count 4.45 M/UL (4.20-5.40) 3.76 M/UL (4.20-5.40) L Hemoglobin 13.6 G/DL (12.0-16.0) 11.6 G/DL (12.0-16.0) L Hematocrit 40.3 % (37.0-47.0) 33.4 % (37.0-47.0) L Mean Corpuscular Volume 91 FL (80-99) 89 FL (80-99) Mean Corpuscular Hemoglobin 30.5 PG (27.0-31.0) 30.9 PG (27.0-31.0) Mean Corpuscular Hemoglobin Concent 33.7 G/DL (32.0-36.0) 34.7 G/DL (32.0-36.0) Red Cell Distribution Width 12.6 % (11.6-14.8) 12.1 % (11.6-14.8) Platelet Count 262 K/UL (150-450) 214 K/UL (150-450) Mean Platelet Volume 8.0 FL (6.5-10.1) 8.4 FL (6.5-10.1) Neutrophils (%) (Auto) 75.3 % (45.0-75.0) H 70.8 % (45.0-75.0) Lymphocytes (%) (Auto) 16.6 % (20.0-45.0) L 19.6 % (20.0-45.0) L Monocytes (%) (Auto) 7.2 % (1.0-10.0) 8.4 % (1.0-10.0) Eosinophils (%) (Auto) 0.1 % (0.0-3.0) 0.3 % (0.0-3.0) Basophils (%) (Auto) 0.9 % (0.0-2.0) 0.9 % (0.0-2.0) Erythrocyte Sedimentation Rate 35 MM/HR (0-30) H Sodium Level 137 MMOL/L (136-145) 136 MMOL/L (136-145) Potassium Level 3.6 MMOL/L (3.5-5.1) 3.5 MMOL/L (3.5-5.1) Chloride Level 100 MMOL/L (98-107) 103 MMOL/L (98-107) Carbon Dioxide Level 24 MMOL/L (21-32) 23 MMOL/L (21-32) Anion Gap 13 mmol/L (5-15) 10 mmol/L (5-15) Blood Urea Nitrogen 35 mg/dL (7-18) H 32 mg/dL (7-18) H Creatinine 2.5 MG/DL (0.55-1.30) H 2.0 MG/DL (0.55-1.30) H Estimat Glomerular Filtration Rate 23.4 mL/min (>60) 30.2 mL/min (>60) Glucose Level 385 MG/DL (74-106) H 260 MG/DL (74-106) #H Hemoglobin A1c 11.8 % (4.3-6.0) H Calcium Level 9.1 MG/DL (8.5-10.1) 8.5 MG/DL (8.5-10.1) Total Bilirubin 1.5 MG/DL (0.2-1.0) H 1.1 MG/DL (0.2-1.0) H Direct Bilirubin 0.3 MG/DL (0.0-0.3) 0.3 MG/DL (0.0-0.3) Aspartate Amino Transf (AST/SGOT) 16 U/L (15-37) 21 U/L (15-37) Alanine Aminotransferase (ALT/SGPT) 16 U/L (12-78) 12 U/L (12-78) Alkaline Phosphatase 204 U/L (46-116) H 159 U/L (46-116) H Total Creatine Kinase 251 U/L (26-308) Creatine Kinase MB 0.7 NG/ML (0.0-3.6) Creatine Kinase MB Relative Index 0.2 Troponin I 0.017 ng/mL (0.000-0.056) Total Protein 8.3 G/DL (6.4-8.2) H 6.7 G/DL (6.4-8.2) Total Protein (PEP) Pending Albumin 3.4 G/DL (3.4-5.0) 2.6 G/DL (3.4-5.0) L Albumin (PEP) Pending Globulin 4.9 g/dL 4.1 g/dL Globulin (PEP) Pending Albumin/Globulin Ratio Pending 0.6 (1.0-2.7) L Puxww-[id number] Pending Frhga-0-Fcgzrrwmo Pending Beta Globulins Pending Beta Gamma Globulin Pending PEP Abnormal Protein Bands Pending Protein Electrophoresis Interpret Pending Vitamin B12 Level 680 PG/ML (193-986) Vitamin D 25-Hydroxy Pending 25-Hydroxy Vitamin D2 Pending 25-Hydroxy Vitamin D3 Pending Folate 19.3 NG/ML (8.6-58.9) Thyroid Stimulating Hormone (TSH) 1.562 uiU/mL (0.358-3.740) Rapid Plasma Reagin Pending Urine Color Yellow Urine Appearance Turbid Urine pH 5 (4.5-8.0) Urine Specific [place] 1.015 (1.005-1.035) Urine Protein 3+ (NEGATIVE) H Urine Glucose (UA) 4+ (NEGATIVE) H Urine Ketones Negative (NEGATIVE) Urine Occult Blood 5+ (NEGATIVE) H Urine Nitrite Negative (NEGATIVE) Urine Bilirubin Negative (NEGATIVE) Urine Urobilinogen Normal MG/DL (0.0-1.0) Urine Leukocyte Esterase 2+ (NEGATIVE) H Urine RBC 5-10 /HPF (0 - 2) H Urine WBC 20-30 /HPF (0 - 2) H Urine Squamous Epithelial Cells Moderate /LPF (NONE/OCC) H Urine Amorphous Sediment Few /LPF (NONE) H Urine Bacteria Moderate /HPF (NONE) H Neurologic Exam Objective PHYSICAL EXAMINATION: GENERAL: She is a well-developed, well-nourished, slightly obese black lady, lying in bed, in no acute distress. HEAD: Normocephalic and atraumatic. EENT: Examination benign. NECK: No neck rigidity was observed. NEUROLOGICAL EXAMINATION: MENTAL STATUS EXAMINATION: She was awake and alert. She was oriented to person, place, and time. She was able to recall 3/3 words immediately, but could only remember 2/3 words in 1 minute and 3 minutes. She was able to remember presidents, Trump through [employer]. Her mathematical skills were impaired. Her visuospatial function was also impaired. SPEECH: She had a mild dysarthria, but it should be noted that she was edentulous. LANGUAGE: She had an anomia for low-frequency words, however, it is unclear as to what her educational level is. CRANIAL NERVE EXAMINATION: II: The visual kim were intact on confrontation testing. III, IV & : The external ocular movements were full and the pupils 3 mm in diameter, equal, round, regular, and reactive to light. V: She had normal facial sensations, and the temporales, masseters, and pterygoids functioned normally. VII: She had normal facial expressions and no facial asymmetry. VIII: She was able to hear well bilaterally and had no nystagmus. IX: The palate moved symmetrically on phonation. X: She had no hoarseness of voice. XI: The sternocleidomastoids and trapezii functioned normally. XII: The tongue was in midline without any fasciculations or atrophy. MOTOR SYSTEM: The tone was normal in all four extremities. Examination of muscle mass revealed no focal wasting. Examination of power revealed G 5/5 power in all muscle groups. SENSORY EXAMINATION: She had intact sensations to pinprick, light touch, and graphesthesia, but she complained of altered sensations in the right leg more than the left leg. REFLEXES: 0 at the biceps, triceps, brachioradialis, knees, and ankles. The plantar responses were flexor bilaterally. COORDINATION: She performed well on gghjda-pv-[id number] and ngni-jg-[id number] testing. STANCE: She stood up with contact guard. GAIT: She walked well with contact guard. Impression/Recommendations Diagnostic Impression 1. Ms. Tammy Gupta is a 68-year-old, right-handed, black lady, with a past history of hypertension and diabetes mellitus, who got out of bed on the morning of 05/12/18 and her legs collapsed. Following that she was unable to walk because of pain, numbness, and weakness in both her lower extremities. She also had some low back pain. 2. She feels much better today. The mind is clear. She feels stronger. She is able to stand and walk again. She still has numbness in both her legs. The pain in her legs is better. The strength in the legs is also better. She denies any new neurologic symptoms. 3. On neurological examination, at this time, she is fully oriented. She has mild problems with memory, visuospatial function, higher cognitive function, and language. The strength in both lower extremities has returned to normal with no give way weakness. Her deep tendon reflexes are globally absent. The plantar responses are flexor. She is able to stand and walk with contact guard. 4. Laboratory data on admission revealed that her WBC count was elevated to 15, 400 with a left-sided shift with 75% neutrophils. The chemistry panel revealed that the BUN was elevated at 35, creatinine was elevated at 2.5, and blood glucose was elevated at 385. Her urinalysis revealed 2+ leukocyte esterase, and 5-10 red blood cells, and 20-30 white blood cells with a moderate amount of bacteria in the urine. 5. Further laboratory tests have revealed that her HbA1C is at 11.8% confirming that her diabetes is not controlled. 6. The CT scan of the brain without contrast is benign for acute pathology, but does reveal some atrophy and deep white matter changes. 7. The MRI of the LS spine done on 05/12/18 revealed: - Chronic degenerative spondylosis at multiple levels largely characterized by facet arthropathy. - Moderate central spinal stenosis L4-5 with moderate to severe bilateral foraminal stenosis. - L5-S1 moderate to severe bilateral foraminal stenosis. - L3-4 mild to moderate bilateral foraminal stenosis. 8. The patient's history, neurological examination, laboratory data, and imaging studies are most compatible with a fall due to her legs giving way and followed by an inability to walk due to pain, numbness, and weakness in both her lower extremities. In addition, she also has a urinary tract infection, and diabetes out of control. 9. Her motor function has improved significantly today and she is able to stand and walk. Recommendations 1. Continue present management. 2. Treatment of urinary tract infection in an aggressive manner. 3. Blood sugar control. 4. Mobilize the patient rapidly with the help of physical and occupational therapy. Sahara Zurita M.D., M.S.P.Theodore. SAHARA ZURITA May 13, 2018 09:33
--- NOTE | 2018-05-13 10:47 | Diagnostic Imaging Report ---
Indication:Elevated Bun and Creatinine. Technique: Grayscale and duplex Doppler imaging of the kidneys performed. Comparison: None Findings: The size, contour, and echogenicity of both kidneys are within normal limits. Right kidney is about 11 cm. The left kidney is between 10 and 11 cm in length. There is no hydronephrosis. IVC is unremarkable. At the base of the urinary bladder there is a filling defect present that does not appear to move with different positioning. Possibility of a mass is not excluded. Recommend cystoscopy for further evaluation. IMPRESSION: Wall adherent debris/blood versus mass at the base of the urinary bladder. Recommend cystoscopy.
[2018-05-13 12:00] VITALS: BP 123/57
--- NOTE | 2018-05-13 15:17 | Infectious Diseases Prog Note ---
Assessment/Plan Problems: (1) Sepsis Assessment & Plan: with fever , will upgrade antibiotics to vancommycin and zosyn, and send blood culture, source suspect bladder lesion ans infection , rule out malignancy (2) UTI (urinary tract infection) Assessment & Plan: continue zosyn pending urine culture (3) Weakness of extremity Assessment & Plan: rule out CVA, with negative head CT , neurology is following (4) Leukocytosis Assessment & Plan: suspect due to UTI and dehydration , monitor CBC (5) Bladder mass Assessment & Plan: recommend urology consult for cystoscopy and biopsy Subjective Constitutional: Reports: no symptoms HEENT: Reports: no symptoms Respiratory: Reports: no symptoms Breasts: Reports: no symptoms Cardiovascular: Reports: no symptoms Gastrointestinal/Abdominal: Reports: no symptoms Genitourinary: Reports: hematuria, frequency Neurologic: Reports: weakness Psychiatric: Reports: no symptoms Skin: Reports: no symptoms Endocrine: Reports: no symptoms Hematologic: Reports: no symptoms Musculoskeletal: Reports: no symptoms Allergies: Coded Allergies: ASPIRIN (Verified Allergy, Unknown, 09/26/16) METFORMIN (Verified Allergy, Unknown, 09/26/16) Objective Vital Signs Last 24 Hour Vital Signs Date Time Temp Pulse Resp B/P (MAP) Pulse Ox O2 Delivery O2 Flow Rate FiO2 05/13/18 12:23 102.4 05/13/18 12:00 102.4 97 19 123/57 (79) 93 102.4 05/13/18 11:24 102.4 05/13/18 09:00 Nasal Cannula 2.0 05/13/18 08:00 99.0 98 19 143/78 (99) 93 99.0 05/13/18 05:56 98.4 98.4 05/13/18 04:00 100.0 79 18 108/36 (60) 99 100.0 05/13/18 03:08 98.8 98.8 05/13/18 01:30 102.4 102.4 05/13/18 00:29 101.7 05/13/18 00:00 101.7 95 19 121/69 (86) 94 101.7 05/12/18 22:47 Room Air 05/12/18 22:15 98.1 96 19 116/65 (82) 94 98.1 05/12/18 21:50 98.3 89 23 124/45 100 Room Air 208.9 05/12/18 21:50 98.3 89 23 124/45 100 Room Air 98.3 05/12/18 18:00 98.3 99 20 152/68 97 Room Air 98.3 Height (Feet): 5 Height (Inches): 6.00 Weight (Pounds): 196 General Appearance: WD/WN, no acute distress HEENT: normocephalic, atraumatic, anicteric, mucous membranes moist, PERRL Respiratory/Chest: chest wall non-tender, lungs clear, normal breath sounds, no respiratory distress, no accessory muscle use Cardiovascular: normal peripheral pulses, normal rate, regular rhythm, no gallop/murmur, no JVD Abdomen: no organomegaly, no scars, hypoactive bowel sounds, distended, tender Extremities: no cyanosis, no clubbing Skin: no rash, no lesions, no ulcers Neurologic/Psychiatric: alert, responsive Microbiology Date/Time Source Procedure Growth Status 05/12/18 14:50 Urine,Clean Catch Urine Culture - Preliminary Gram Negative Bacillus 1 Resulted Laboratory Tests Test 05/13/18 04:35 White Blood Count 14.5 K/UL (4.8-10.8) H Red Blood Count 3.76 M/UL (4.20-5.40) L Hemoglobin 11.6 G/DL (12.0-16.0) L Hematocrit 33.4 % (37.0-47.0) L Mean Corpuscular Volume 89 FL (80-99) Mean Corpuscular Hemoglobin 30.9 PG (27.0-31.0) Mean Corpuscular Hemoglobin Concent 34.7 G/DL (32.0-36.0) Red Cell Distribution Width 12.1 % (11.6-14.8) Platelet Count 214 K/UL (150-450) Mean Platelet Volume 8.4 FL (6.5-10.1) Neutrophils (%) (Auto) 70.8 % (45.0-75.0) Lymphocytes (%) (Auto) 19.6 % (20.0-45.0) L Monocytes (%) (Auto) 8.4 % (1.0-10.0) Eosinophils (%) (Auto) 0.3 % (0.0-3.0) Basophils (%) (Auto) 0.9 % (0.0-2.0) Sodium Level 136 MMOL/L (136-145) Potassium Level 3.5 MMOL/L (3.5-5.1) Chloride Level 103 MMOL/L (98-107) Carbon Dioxide Level 23 MMOL/L (21-32) Anion Gap 10 mmol/L (5-15) Blood Urea Nitrogen 32 mg/dL (7-18) H Creatinine 2.0 MG/DL (0.55-1.30) H Estimat Glomerular Filtration Rate 30.2 mL/min (>60) Glucose Level 260 MG/DL (74-106) #H Calcium Level 8.5 MG/DL (8.5-10.1) Total Bilirubin 1.1 MG/DL (0.2-1.0) H Direct Bilirubin 0.3 MG/DL (0.0-0.3) Aspartate Amino Transf (AST/SGOT) 21 U/L (15-37) Alanine Aminotransferase (ALT/SGPT) 12 U/L (12-78) Alkaline Phosphatase 159 U/L (46-116) H Total Protein 6.7 G/DL (6.4-8.2) Albumin 2.6 G/DL (3.4-5.0) L Globulin 4.1 g/dL Albumin/Globulin Ratio 0.6 (1.0-2.7) L Current Medications Medications (Trade) Dose Ordered Sig/Jhon Route PRN Reason Start Time Stop Time Status Last Admin Dose Admin Acetaminophen (Tylenol) 650 mg Q4H PRN ORAL Mild Pain (Pain Scale 1-3) 05/12/18 16:45 06/11/18 16:44 05/13/18 11:24 Atorvastatin Calcium (Lipitor) 80 mg QHS ORAL 05/12/18 21:00 06/11/18 20:59 05/12/18 22:24 Dextrose (Dextrose 50%) 25 ml STAT PRN IV Hypoglycemia 05/12/18 16:45 06/11/18 16:44 Dextrose (Dextrose 50%) 50 ml STAT PRN IV Hypoglycemia 05/12/18 16:45 06/11/18 16:44 Diphenhydramine HCl (Benadryl) 25 mg Q6H PRN ORAL Itching/Pruritis 05/12/18 16:45 06/11/18 16:44 Docusate Sodium (Colace) 100 mg EVERY 12 HOURS ORAL 05/12/18 21:00 06/11/18 20:59 05/13/18 09:02 Heparin Sodium (Porcine) (Heparin 5000 units/ml) 5,000 units EVERY 8 HOURS SUBQ 05/12/18 22:00 06/11/18 21:59 05/13/18 05:52 Insulin Aspart (NovoLOG) BEFORE MEALS AND HS SUBQ 05/12/18 21:00 06/11/18 20:59 05/13/18 11:43 Insulin Detemir (Levemir) 10 units BEDTIME SUBQ 05/13/18 21:00 06/12/18 20:59 Ondansetron HCl (Zofran) 4 mg Q6H PRN IVP Nausea & Vomiting 05/12/18 16:45 06/11/18 16:44 Piperacillin Sod/ Tazobactam Sod 3.375 gm/Sodium Chloride 110 ml @ 27.5 mls/hr Q8H IVPB 05/13/18 18:00 05/20/18 17:59 Sodium Chloride 1,000 ml @ 75 mls/hr [id number] IVLG 05/12/18 19:00 06/11/18 18:59 05/13/18 09:02 Vancomycin HCl (Vanco rx to dose) 1 ea DAILY PRN MISC Per rx protocol 05/13/18 06:30 06/12/18 06:29 Vancomycin/Sodium Chloride 250 ml @ 166.667 mls/hr Q24H IVPB 05/14/18 08:00 05/19/18 07:59 Alexis Bernard M.D. May 13, 2018 15:17
[2018-05-13] MEDS ORDERED: Isovue-300 100ml vial INJ PRN ×2 (18:30)
[2018-05-13 20:00] VITALS: BP 122/65
[2018-05-13] MEDS: Atorvastatin 80mg tab ORAL SCH (21:00)
[2018-05-13] MEDS: Levemir Flexpen SUBQ SCH (21:38)
--- NOTE | 2018-05-13 23:47 | Consultation ---
DATE OF CONSULTATION: 05/13/2018 INFECTIOUS DISEASE CONSULTATION CONSULTING PHYSICIAN: Alexis Bernard M.D. REQUESTING PHYSICIAN: Travis Yoon M.D. REASON FOR CONSULTATION: Leukocytosis, UTI, possible sepsis. Recommendation for antibiotics treatment. HISTORY OF PRESENT ILLNESS: The patient is a 68-year-old, female with past medical history of obesity, diabetes, hyperlipidemia and CVA presented to [facility] after she fell from bed. The patient fell over to the floor from her bed and she was able to get up with some weakness. She felt tired and fatigued. 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 The patient had hematuria for the last couple of weeks and she noticed some weight loss. She has not been monitoring her blood sugar supposed to and it has been high over the last couple of weeks. The patient was found to have leukocytosis with urine tract infection evidence in the emergency room. So, she was started on antibiotics and Infectious Disease consultation was requested for antibiotics treatment and further management. PAST MEDICAL HISTORY: Significant for obesity, diabetes, hyperlipidemia and CVA. PAST SURGICAL HISTORY: Not on record. ALLERGIES: She is allergic to aspirin and metformin. MEDICATIONS: The patient was started on ceftriaxone in the emergency room. For the rest of her medications, please refer to MAR. FAMILY HISTORY: Significant for diabetes, hypertension, and hyperlipidemia. SOCIAL HISTORY: The patient lives at home by herself. Denied using any drugs, tobacco, or alcohol. REVIEW OF SYSTEMS: A 14-point of system reviewed were all negative apart from the one I mentioned above in my History and Physical. PHYSICAL EXAMINATION: GENERAL: Elderly female, morbidly obese, lying in bed, awake, alert, oriented, not in acute distress. VITAL SIGNS: Temperature 102.4 degrees, pulse 95, respiration 19, blood pressure 121/69, saturation 94% on room air. HEENT: Normocephalic and atraumatic. Pupils are reactive to light. Moist oral mucosa. Geographic tongue. NECK: Supple. No lymphadenopathy. CARDIOVASCULAR: Regular rate and rhythm. No murmur or gallop. LUNGS: Clear bilaterally. No wheezing or rhonchi. ABDOMEN: Obese, distended and tender mainly in the suprapubic area. No rebound. No organomegaly. EXTREMITIES: No edema. No cyanosis. LABORATORY AND DIAGNOSTIC DATA: Labs showed white count of 15.4, hemoglobin of 13.6 and platelet count of 262. BUN of 35, creatinine of 2.5, and glucose of 385. Urinalysis showed +2 leukocyte esterase, wbc's 20-30 and moderate amount of bacteria. Microbiology, urine culture is pending. Imaging, head CT scan, no acute intracranial bleed, mass effect, or edema. Mild atrophy of the brain only. Knee x-ray showed no fracture or acute finding. Head CT showed no evidence of acute bony injury with respect to the right hip facet arthropathy at L5-S1 status post hysterectomy and other incidental finding. Chest x-ray showed no acute findings. Lumbar spine MRI showed chronic degenerative spondylosis, multiple levels. Central spinal stenosis, L4-L5 moderate to severe bilateral foraminal stenosis, L5-S1 moderate to severe bilateral foraminal stenosis, L3-L4 [id number] bilateral foraminal stenosis. ASSESSMENT AND RECOMMENDATION: 1. UTI. The patient will be started on ceftriaxone empiric coverage. We will send urine culture. We will deescalate antibiotics based on her clinical progress and culture results. 2. Leukocytosis, rule out sepsis. We will send blood culture. Start ceftriaxone. Monitor white count. 3. Weakness of the lower extremity. Rule out CVA. Neurology team is following. Head CT scan did not show any acute pathology. 4. Diabetes, poorly controlled. Recommend tight glycemic control to keep blood glucose between 100 to 140. Thank you. Infectious Disease will continue to follow. Alexis Bernard M.D. DR: MIKE JOB#: [id number] CC:
[2018-05-14] VITALS: BP 121/82
--- NOTE | 2018-05-14 01:02 | Consultation ---
DATE OF CONSULTATION: 05/13/2018 CONSULTING PHYSICIAN: Sushant Thao M.D. REASON FOR CONSULTATION: Possible bladder mass. HISTORY OF PRESENT ILLNESS: The patient is a 68-year-old lady, history of hypertension and diabetes. She was admitted for medical reasons and had a renal ultrasound that showed possible clot or mass at the base of the bladder. She does not have any previous urological conditions. PAST MEDICAL HISTORY: Significant for hypertension and diabetes. FAMILY HISTORY: High blood pressure. PERSONAL HISTORY: Lives with her sister and she is retired. PHYSICAL EXAMINATION: GENERAL: She is a well-nourished lady with no acute distress. VITAL SIGNS: Stable. Neurologically intact. ABDOMEN: Soft, nontender. No suprapubic tenderness. LABORATORY AND DIAGNOSTIC DATA: Laboratory data was reviewed with creatinine of 2.0 and normal electrolytes. White count is 14.5 and hematocrit is 33.4. Ultrasound as above described being normal kidneys and possible clot or mass at the base of the bladder. ASSESSMENT AND PLANNING: The patient has possible lesion in the bladder. I would recommend CT urogram with oral contrast and I will follow after the CT. Sushant Thao M.D. DR: COLLINS JOB#: [id number] CC:
[2018-05-14] MEDS: Piperacillin/Tazobactam 3.375 GM in NS 110 ML IVPB SCH ×3 (01:47→17:51)
[2018-05-14 04:00] VITALS: BP 132/65
[2018-05-14] MEDS: Heparin 5000 units/ml inj SUBQ SCH ×3 (06:03→21:25)
[2018-05-14] MEDS: NovoLOG Insulin Flexpen SUBQ SCH ×4 (06:03→21:04)
[2018-05-14 06:57] LABS: BASOPHILS % (AUTO) 0.6 % (0.0-2.0); EOSINOPHILS % (AUTO) 0.6 % (0.0-3.0); HEMATOCRIT 31.1 % (37.0-47.0); HEMOGLOBIN 10.5 G/DL (12.0-16.0); LYMPHOCYTES % (AUTO) 10.3 % (20.0-45.0); MEAN CORPUSCULAR VOLUME 89 FL (80-99); MONOCYTES % (AUTO) 8.1 % (1.0-10.0); NEUTROPHILS % (AUTO) 80.3 % (45.0-75.0); PLATELET COUNT 191 K/UL (150-450); RED CELL DISTRIBUTION WIDTH 12.1 % (11.6-14.8); WHITE BLOOD COUNT 9.9 K/UL (4.8-10.8)
[2018-05-14 07:09] LABS: ANION GAP 8 mmol/L (5-15); BLOOD UREA NITROGEN 23 mg/dL (7-18); CALCIUM 8.3 MG/DL (8.5-10.1); CARBON DIOXIDE 24 MMOL/L (21-32); CHLORIDE 106 MMOL/L (98-107); CREATININE 1.8 MG/DL (0.55-1.30); POTASSIUM 3.3 MMOL/L (3.5-5.1); SODIUM 138 MMOL/L (136-145)
[2018-05-14] MEDS ORDERED: Vancomycin 750mg/NS 250ml IVPB SCH (08:00)
[2018-05-14] MEDS: Docusate 100mg cap ORAL SCH ×2 (09:00→21:00)
--- NOTE | 2018-05-14 10:47 | Nephrology Progress Note ---
Assessment/Plan Assessment/Plan 1. LE Weakness- previous CVA - decompensation from underlying UTI - much apreciate neurology, patient improved 2. UTI- Abx per ID 3. DM- on ISS + lantus 4. MATEO- Cr improved to 1.8. Continue Abx and IVFs 5. DVT prphylaxsis with heparin 6. Bladder Lesion- CT Urogram. Appreciate Urology assistance 7. Hypokalemia- replace po today Subjective Date patient seen: May 14, 2018 Time patient seen: 10:43 ROS Limited/Unobtainable: No Constitutional: Reports: weakness Allergies: Coded Allergies: ASPIRIN (Verified Allergy, Unknown, 09/26/16) METFORMIN (Verified Allergy, Unknown, 09/26/16) All Systems: reviewed and negative except above Subjective Patient today feeling better Objective Last 24 Hour Vital Signs Date Time Temp Pulse Resp B/P (MAP) Pulse Ox O2 Delivery O2 Flow Rate FiO2 05/14/18 04:00 99.5 89 18 132/65 (87) 96 99.5 05/14/18 00:00 99.4 92 18 121/82 (95) 95 99.4 05/13/18 21:13 Room Air 05/13/18 20:00 102.9 86 20 122/65 (84) 95 102.9 05/13/18 17:05 101.9 05/13/18 16:09 102.4 05/13/18 16:00 102.4 102.4 05/13/18 12:00 102.4 97 19 123/57 (79) 93 102.4 05/13/18 11:24 102.4 Intake and Output 05/13/18 05/14/18 19:00 07:00 Intake Total 1485 ml 1540.0 ml Output Total 30 ml 500 ml Balance 1455 ml 1040.0 ml Intake Oral 810 ml 980 ml IV Total 675 ml 560.0 ml Output Urine Total 500 ml Emesis 30 ml # Voids 4 5 Laboratory Tests 05/14/18 04:45: White Blood Count 9.9, Red Blood Count 3.50L, Hemoglobin 10.5L, Hematocrit 31.1L , Mean Corpuscular Volume 89, Mean Corpuscular Hemoglobin 29.9, Mean Corpuscular Hemoglobin Concent 33.6, Red Cell Distribution Width 12.1, Platelet Count 191, Mean Platelet Volume 8.4, Neutrophils (%) (Auto) 80.3H, Lymphocytes ( %) (Auto) 10.3L, Monocytes (%) (Auto) 8.1, Eosinophils (%) (Auto) 0.6, Basophils (%) (Auto) 0.6, Sodium Level 138, Potassium Level 3.3L, Chloride Level 106, Carbon Dioxide Level 24, Anion Gap 8, Blood Urea Nitrogen 23H, Creatinine 1.8H, Estimat Glomerular Filtration Rate 34.1, Glucose Level 238H, Calcium Level 8.3L Height (Feet): 5 Height (Inches): 6.00 Weight (Pounds): 193 General Appearance: no apparent distress, alert EENT: normal ENT inspection Neck: normal alignment, supple Cardiovascular: normal rate, regular rhythm Respiratory/Chest: lungs clear, normal breath sounds Abdomen: non tender, soft Edema: no edema noted Arm (L), no edema noted Arm (R), no edema noted Leg (L), no edema noted Leg (R), no edema noted Pedal (L), no edema noted Pedal (R), no edema noted Generalized Travis Yoon M.D. May 14, 2018 10:47
[2018-05-14 12:00] VITALS: BP 112/59
--- NOTE | 2018-05-14 13:41 | Diagnostic Imaging Report ---
Indication: Pain, mass Technique: Noncontrast CT of the abdomen and pelvis utilizing automated exposure control. Axial, sagittal and coronal reformats presented. CT dose: Total DLP 1043.26 mGycm; CTDI vol 19.75 mGy Comparison: Renal ultrasound 05/12/2018 Findings: Please note that evaluation of the abdominal and pelvic viscera and vascular structures is limited without the use of intravenous and oral contrast. Within these limitations the following observations are made: Dependent atelectasis noted at the lung bases. No pleural effusion or pneumothorax. Heart size within normal limits. Liver contour is smooth. No focal hepatic mass lesion is appreciated on this noncontrast exam. Gallbladder is unremarkable. No appreciable biliary ductal dilatation. Spleen, adrenal glands and pancreas grossly unremarkable for noncontrast exam. The kidneys are symmetric in size. There is nonspecific bilateral mild perinephric stranding. There are punctate calcifications in the renal belen bilaterally which are likely vascular in etiology. The possibility of tiny nonobstructing stones is thought less likely. No evidence of hydronephrosis bilaterally. There is asymmetric thickening of the right posterosuperior bladder wall with a focal oval mass lesion that measures approximately 1.7 x 2.5 cm (series 3 image #123). Patient is status post hysterectomy. There is no free intraperitoneal air or fluid. No evidence of bowel obstruction. There is apparent thickening of the stomach wall which is possibly related to underdistention. Consider correlation with endoscopy. There is a tiny fat-containing umbilical hernia. The abdominal aorta is normal in caliber but significantly calcified. There are calcifications within the mesenteric vasculature and iliac and femoral arteries bilaterally. No appreciable pathologically enlarged mesenteric or retroperitoneal lymphadenopathy however dilation limited without contrast. Nonspecific small inguinal lymph nodes are noted, none pathologically enlarged by imaging size criteria. There are degenerative changes of the spine. A possible interbody hemangiomas noted in the L4 vertebral body. There is some sclerotic foci in the iliac bones and sacrum. IMPRESSION: Limited exam without intravenous and oral contrast. Within these limitations: * Persistent rounded mass lesion in the bladder (series 3 image #123) as above. Recommend direct visualization with cystoscopy. * Sclerotic foci in the iliac bones and sacrum may be related to bone islands. The possibility of bone metastases not excluded, especially given the above described bladder mass. Recommend correlation with bone scan. * Punctate calcifications in the renal belen bilaterally likely vascular in etiology. No evidence of hydronephrosis bilaterally. * No evidence of bowel obstruction. * Thickening of the stomach likely related to underdistention. Consider endoscopy for further evaluation as clinically indicated. * Atherosclerotic disease. Additional incidental findings as above. The CT scanner at [facility] is accredited by the [employer] and the scans are performed using protocols designed to limit radiation exposure to as low as reasonably achievable to attain images of sufficient resolution adequate for diagnostic evaluation.
[2018-05-14] MEDS ORDERED: D5 1/2NS 1000ml IV ONE (14:10)
--- NOTE | 2018-05-14 15:55 | Neurology Progress Note ---
Interim History Interim History ROS Limited/Unobtainable: No Interim History Ms. Gupta continues to feel much better. The mind is clear. She feels stronger. She is able to stand and walk better. She still has numbness in both her legs. The pain in her legs is better. The strength in the legs is also better. She denies any new neurologic symptoms. She has been noted to have a possible bladder mass which is being investigated. Review of Systems Neuro Review of Systems Benign. Objective Physical Exam Last Vital Signs Date Time Temp Pulse Resp B/P (MAP) Pulse Ox O2 Delivery O2 Flow Rate FiO2 05/14/18 12:00 97.6 86 19 112/59 (76) 99 97.6 05/14/18 09:00 Room Air 05/13/18 09:00 2.0 Laboratory Tests Test 05/14/18 04:45 White Blood Count 9.9 K/UL (4.8-10.8) Red Blood Count 3.50 M/UL (4.20-5.40) L Hemoglobin 10.5 G/DL (12.0-16.0) L Hematocrit 31.1 % (37.0-47.0) L Mean Corpuscular Volume 89 FL (80-99) Mean Corpuscular Hemoglobin 29.9 PG (27.0-31.0) Mean Corpuscular Hemoglobin Concent 33.6 G/DL (32.0-36.0) Red Cell Distribution Width 12.1 % (11.6-14.8) Platelet Count 191 K/UL (150-450) Mean Platelet Volume 8.4 FL (6.5-10.1) Neutrophils (%) (Auto) 80.3 % (45.0-75.0) H Lymphocytes (%) (Auto) 10.3 % (20.0-45.0) L Monocytes (%) (Auto) 8.1 % (1.0-10.0) Eosinophils (%) (Auto) 0.6 % (0.0-3.0) Basophils (%) (Auto) 0.6 % (0.0-2.0) Sodium Level 138 MMOL/L (136-145) Potassium Level 3.3 MMOL/L (3.5-5.1) L Chloride Level 106 MMOL/L (98-107) Carbon Dioxide Level 24 MMOL/L (21-32) Anion Gap 8 mmol/L (5-15) Blood Urea Nitrogen 23 mg/dL (7-18) H Creatinine 1.8 MG/DL (0.55-1.30) H Estimat Glomerular Filtration Rate 34.1 mL/min (>60) Glucose Level 238 MG/DL (74-106) H Calcium Level 8.3 MG/DL (8.5-10.1) L Neurologic Exam Objective PHYSICAL EXAMINATION: GENERAL: She is a well-developed, well-nourished, slightly obese black lady, lying in bed, in no acute distress. HEAD: Normocephalic and atraumatic. EENT: Examination benign. NECK: No neck rigidity was observed. NEUROLOGICAL EXAMINATION: MENTAL STATUS EXAMINATION: She was awake and alert. She was oriented to person, place, and time. She was able to recall 3/3 words immediately, but could only remember 2/3 words in 1 minute and 3 minutes. She was able to remember presidents, Trump through [employer]. Her mathematical skills were impaired. Her visuospatial function was also impaired. SPEECH: She had a mild dysarthria, but it should be noted that she was edentulous. LANGUAGE: She had an anomia for low-frequency words, however, it is unclear as to what her educational level is. CRANIAL NERVE EXAMINATION: II: The visual kim were intact on confrontation testing. III, IV & : The external ocular movements were full and the pupils 3 mm in diameter, equal, round, regular, and reactive to light. V: She had normal facial sensations, and the temporales, masseters, and pterygoids functioned normally. VII: She had normal facial expressions and no facial asymmetry. VIII: She was able to hear well bilaterally and had no nystagmus. IX: The palate moved symmetrically on phonation. X: She had no hoarseness of voice. XI: The sternocleidomastoids and trapezii functioned normally. XII: The tongue was in midline without any fasciculations or atrophy. MOTOR SYSTEM: The tone was normal in all four extremities. Examination of muscle mass revealed no focal wasting. Examination of power revealed G 5/5 power in all muscle groups. SENSORY EXAMINATION: She had intact sensations to pinprick, light touch, and graphesthesia, but she complained of altered sensations in the right leg more than the left leg. REFLEXES: 0 at the biceps, triceps, brachioradialis, knees, and ankles. The plantar responses were flexor bilaterally. COORDINATION: She performed well on [id number] and [id number] testing. STANCE: She stood up with contact guard. GAIT: She walked well with contact guard. Impression/Recommendations Diagnostic Impression 1. Ms. Tammy Gupta is a 68-year-old, right-handed, black lady, with a past history of hypertension and diabetes mellitus, who got out of bed on the morning of 05/12/18 and her legs collapsed. Following that she was unable to walk because of pain, numbness, and weakness in both her lower extremities. She also had some low back pain. 2. She continues to feel much better. The mind is clear. She feels stronger. She is able to stand and walk better. She still has numbness in both her legs. The pain in her legs is better. The strength in the legs is also better. She denies any new neurologic symptoms. She has been noted to have a possible bladder mass which is being investigated. 3. On neurological examination, at this time, she is fully oriented. She has mild problems with memory, visuospatial function, higher cognitive function, and language. The strength in both lower extremities has returned to normal with no give way weakness. Her deep tendon reflexes are globally absent. The plantar responses are flexor. She is able to stand and walk with contact guard. 4. Laboratory data on admission revealed that her WBC count was elevated to 15, 400 with a left-sided shift with 75% neutrophils. The chemistry panel revealed that the BUN was elevated at 35, creatinine was elevated at 2.5, and blood glucose was elevated at 385. Her urinalysis revealed 2+ leukocyte esterase, and 5-10 red blood cells, and 20-30 white blood cells with a moderate amount of bacteria in the urine. 5. Further laboratory tests have revealed that her HbA1C is at 11.8% confirming that her diabetes is not controlled. 6. The CT scan of the brain without contrast is benign for acute pathology, but does reveal some atrophy and deep white matter changes. 7. The MRI of the LS spine done on 05/12/18 revealed: - Chronic degenerative spondylosis at multiple levels largely characterized by facet arthropathy. - Moderate central spinal stenosis L4-5 with moderate to severe bilateral foraminal stenosis. - L5-S1 moderate to severe bilateral foraminal stenosis. - L3-4 mild to moderate bilateral foraminal stenosis. 8. The patient's history, neurological examination, laboratory data, and imaging studies are most compatible with a fall due to her legs giving way and followed by an inability to walk due to pain, numbness, and weakness in both her lower extremities. In addition, she also has a urinary tract infection, and diabetes out of control. 9. Her motor function has improved significantly today and she is able to stand and walk. 10. She has been noted to have a possible bladder mass which is being investigated. Recommendations 1. Continue present management. 2. Treatment of urinary tract infection in an aggressive manner. 3. Blood sugar control. 4. Mobilize the patient rapidly with the help of physical and occupational therapy. 5. Investigations for bladder mass. Sahara Zurita M.D., M.S.P.H. SAHARA ZURITA May 14, 2018 15:55
--- NOTE | 2018-05-14 16:32 | Infectious Diseases Prog Note ---
Assessment/Plan Problems: (1) Sepsis Assessment & Plan: with fever , on vancomycin and zosyn empirically pending blood culture, source suspect bladder lesion and urine infection , needs to rule out malignancy of the bladder (2) UTI (urinary tract infection) Assessment & Plan: due to proteus mirabilis , already on continue zosyn pending blood culture (3) Weakness of extremity Assessment & Plan: rule out CVA, with negative head CT , neurology is following (4) Leukocytosis Assessment & Plan: suspect due to UTI and dehydration , monitor CBC (5) Bladder mass Assessment & Plan: recommend cystoscopy and biopsy , urology is following Subjective Constitutional: Reports: fatigue, anorexia HEENT: Reports: no symptoms Respiratory: Reports: no symptoms Breasts: Reports: no symptoms Cardiovascular: Reports: no symptoms Gastrointestinal/Abdominal: Reports: constipation, bloating Genitourinary: Reports: dysuria, hematuria Neurologic: Reports: no symptoms Psychiatric: Reports: no symptoms Skin: Reports: no symptoms Endocrine: Reports: no symptoms Hematologic: Reports: no symptoms Musculoskeletal: Reports: no symptoms Allergies: Coded Allergies: ASPIRIN (Verified Allergy, Unknown, 09/26/16) METFORMIN (Verified Allergy, Unknown, 09/26/16) Objective Vital Signs Last 24 Hour Vital Signs Date Time Temp Pulse Resp B/P (MAP) Pulse Ox O2 Delivery O2 Flow Rate FiO2 05/14/18 12:00 97.6 86 19 112/59 (76) 99 97.6 05/14/18 09:00 Room Air 05/14/18 09:00 98.4 68 18 97 98.4 05/14/18 04:00 99.5 89 18 132/65 (87) 96 99.5 05/14/18 00:00 99.4 92 18 121/82 (95) 95 99.4 05/13/18 21:13 Room Air 05/13/18 20:00 102.9 86 20 122/65 (84) 95 102.9 05/13/18 17:05 101.9 Height (Feet): 5 Height (Inches): 6.00 Weight (Pounds): 193 General Appearance: WD/WN, no acute distress HEENT: normocephalic, atraumatic, anicteric, mucous membranes moist, PERRL Respiratory/Chest: chest wall non-tender, lungs clear, normal breath sounds, no respiratory distress, no accessory muscle use, decreased breath sounds Cardiovascular: normal peripheral pulses, normal rate, regular rhythm, no gallop/murmur, no JVD Abdomen: normal bowel sounds, soft, non tender, no organomegaly, non distended , no mass, no scars Extremities: no cyanosis, no clubbing Skin: no rash, no lesions, no ulcers Neurologic/Psychiatric: alert, oriented x 3, responsive Lymphatic: no neck adenopathy, no groin adenopathy Microbiology Date/Time Source Procedure Growth Status 05/12/18 14:50 Urine,Clean Catch Urine Culture - Final Proteus Mirabilis Complete Laboratory Tests Test 05/14/18 04:45 White Blood Count 9.9 K/UL (4.8-10.8) Red Blood Count 3.50 M/UL (4.20-5.40) L Hemoglobin 10.5 G/DL (12.0-16.0) L Hematocrit 31.1 % (37.0-47.0) L Mean Corpuscular Volume 89 FL (80-99) Mean Corpuscular Hemoglobin 29.9 PG (27.0-31.0) Mean Corpuscular Hemoglobin Concent 33.6 G/DL (32.0-36.0) Red Cell Distribution Width 12.1 % (11.6-14.8) Platelet Count 191 K/UL (150-450) Mean Platelet Volume 8.4 FL (6.5-10.1) Neutrophils (%) (Auto) 80.3 % (45.0-75.0) H Lymphocytes (%) (Auto) 10.3 % (20.0-45.0) L Monocytes (%) (Auto) 8.1 % (1.0-10.0) Eosinophils (%) (Auto) 0.6 % (0.0-3.0) Basophils (%) (Auto) 0.6 % (0.0-2.0) Sodium Level 138 MMOL/L (136-145) Potassium Level 3.3 MMOL/L (3.5-5.1) L Chloride Level 106 MMOL/L (98-107) Carbon Dioxide Level 24 MMOL/L (21-32) Anion Gap 8 mmol/L (5-15) Blood Urea Nitrogen 23 mg/dL (7-18) H Creatinine 1.8 MG/DL (0.55-1.30) H Estimat Glomerular Filtration Rate 34.1 mL/min (>60) Glucose Level 238 MG/DL (74-106) H Calcium Level 8.3 MG/DL (8.5-10.1) L Current Medications Medications (Trade) Dose Ordered Sig/Jhon Route PRN Reason Start Time Stop Time Status Last Admin Dose Admin Acetaminophen (Tylenol) 650 mg Q4H PRN ORAL Mild Pain (Pain Scale 1-3) 05/12/18 16:45 06/11/18 16:44 05/13/18 16:09 Atorvastatin Calcium (Lipitor) 80 mg QHS ORAL 05/12/18 21:00 06/11/18 20:59 05/13/18 21:00 Barium Sulfate (Readi-Cat 2) 450 ea NOW PRN ORAL Radiology Procedure 05/13/18 18:30 05/15/18 18:22 Dextrose (Dextrose 50%) 25 ml STAT PRN IV Hypoglycemia 05/12/18 16:45 06/11/18 16:44 Dextrose (Dextrose 50%) 50 ml STAT PRN IV Hypoglycemia 05/12/18 16:45 06/11/18 16:44 Diphenhydramine HCl (Benadryl) 25 mg Q6H PRN ORAL Itching/Pruritis 05/12/18 16:45 06/11/18 16:44 Docusate Sodium (Colace) 100 mg EVERY 12 HOURS ORAL 05/12/18 21:00 06/11/18 20:59 05/13/18 21:31 Heparin Sodium (Porcine) (Heparin 5000 units/ml) 5,000 units EVERY 8 HOURS SUBQ 05/12/18 22:00 06/11/18 21:59 05/14/18 13:27 Insulin Aspart (NovoLOG) BEFORE MEALS AND HS SUBQ 05/12/18 21:00 06/11/18 20:59 05/14/18 06:03 Insulin Detemir (Levemir) 10 units BEDTIME SUBQ 05/13/18 21:00 06/12/18 20:59 05/13/18 21:38 Iopamidol (Isovue-300 100ml) 100 ml NOW PRN INJ Radiology Procedure 05/13/18 18:30 05/15/18 18:29 Ondansetron HCl (Zofran) 4 mg Q6H PRN IVP Nausea & Vomiting 05/12/18 16:45 06/11/18 16:44 05/13/18 17:37 Piperacillin Sod/ Tazobactam Sod 3.375 gm/Sodium Chloride 110 ml @ 27.5 mls/hr Q8H IVPB 05/13/18 18:00 05/20/18 17:59 05/14/18 09:05 Sodium Chloride 1,000 ml @ 75 mls/hr [id number] IVLG 05/12/18 19:00 06/11/18 18:59 05/14/18 13:24 Vancomycin HCl (Vanco rx to dose) 1 ea DAILY PRN MISC Per rx protocol 05/13/18 06:30 06/12/18 06:29 Vancomycin/Sodium Chloride 250 ml @ 166.667 mls/hr Q24H IVPB 05/14/18 08:00 05/19/18 07:59 05/14/18 08:53 Alexis Bernard M.D. May 14, 2018 16:31
[2018-05-14 17:00] VITALS: BP 117/58
[2018-05-14 20:00] VITALS: BP 125/55
[2018-05-14] MEDS: Atorvastatin 80mg tab ORAL SCH (21:00)
[2018-05-14] MEDS: Levemir Flexpen SUBQ SCH (21:03)
[2018-05-15] VITALS (7 sets, daily range): BP systolic 105–141; BP diastolic 62–93
[2018-05-15] MEDS: Piperacillin/Tazobactam 3.375 GM in NS 110 ML IVPB SCH ×3 (01:14→17:34)
[2018-05-15] MEDS: NovoLOG Insulin Flexpen SUBQ SCH ×4 (05:39→20:31)
[2018-05-15] MEDS: Heparin 5000 units/ml inj SUBQ SCH ×3 (05:40→21:11)
[2018-05-15 08:11] LABS: BASOPHILS % (AUTO) 0.3 % (0.0-2.0); HEMATOCRIT 31.5 % (37.0-47.0); HEMOGLOBIN 10.5 G/DL (12.0-16.0); LYMPHOCYTES % (AUTO) 10.2 % (20.0-45.0); MEAN CORPUSCULAR VOLUME 88 FL (80-99); MONOCYTES % (AUTO) 7.8 % (1.0-10.0); NEUTROPHILS % (AUTO) 80.7 % (45.0-75.0); PLATELET COUNT 222 K/UL (150-450); RED BLOOD COUNT 3.57 M/UL (4.20-5.40); RED CELL DISTRIBUTION WIDTH 12.6 % (11.6-14.8); WHITE BLOOD COUNT 12.4 K/UL (4.8-10.8)
[2018-05-15 08:25] LABS: ANION GAP 9 mmol/L (5-15); BLOOD UREA NITROGEN 19 mg/dL (7-18); CALCIUM 8.2 MG/DL (8.5-10.1); CARBON DIOXIDE 24 MMOL/L (21-32); CHLORIDE 106 MMOL/L (98-107); CREATININE 1.7 MG/DL (0.55-1.30); POTASSIUM 3.8 MMOL/L (3.5-5.1); SODIUM 139 MMOL/L (136-145)
[2018-05-15] MEDS: Docusate 100mg cap ORAL SCH ×2 (08:44→20:12)
--- NOTE | 2018-05-15 08:53 | Nephrology Progress Note ---
Assessment/Plan Assessment/Plan 1. LE Weakness- previous CVA - decompensation from underlying UTI, much apreciate neurology, patient improved 2. UTI- Abx per ID. Stable 3. DM- on ISS + increase lantus 4. MATEO- Cr improved to 1.7. Continue Abx and IVFs 5. DVT prphylaxsis with heparin 6. Bladder Lesion- CT Urogram. Appreciate Urology assistance. Poss cysto 7. Hypokalemia- replace prn Subjective Date patient seen: May 15, 2018 Time patient seen: 08:51 ROS Limited/Unobtainable: No Allergies: Coded Allergies: ASPIRIN (Verified Allergy, Unknown, 09/26/16) METFORMIN (Verified Allergy, Unknown, 09/26/16) All Systems: reviewed and negative except above Subjective Patient today feeling better. In no overt distress Objective Last 24 Hour Vital Signs Date Time Temp Pulse Resp B/P (MAP) Pulse Ox O2 Delivery O2 Flow Rate FiO2 05/15/18 08:13 Room Air 05/15/18 04:00 99.0 82 18 120/66 (84) 97 99.0 05/15/18 00:00 99.0 85 18 128/62 (84) 98 99.0 05/14/18 22:36 98.2 05/14/18 21:37 98.2 05/14/18 21:00 Room Air 05/14/18 20:00 99.7 88 17 125/55 (78) 100 99.7 05/14/18 20:00 99.7 88 17 125/55 (78) 100 99.7 05/14/18 17:00 98.2 82 18 117/58 (77) 58 98.2 05/14/18 12:00 97.6 86 19 112/59 (76) 99 97.6 05/14/18 09:00 Room Air 05/14/18 09:00 98.4 68 18 97 98.4 Intake and Output 05/14/18 05/15/18 19:00 07:00 Intake Total 1486.5 ml 1282.5 ml Output Total 600 ml 400 ml Balance 886.5 ml 882.5 ml Intake Oral 1384 ml 240 ml IV Total 102.5 ml 1042.5 ml Output Urine Total 600 ml 400 ml # Voids 2 Laboratory Tests 05/15/18 07:30: White Blood Count 12.4H, Red Blood Count 3.57L, Hemoglobin 10.5L, Hematocrit 31.5L, Mean Corpuscular Volume 88, Mean Corpuscular Hemoglobin 29.6, Mean Corpuscular Hemoglobin Concent 33.5, Red Cell Distribution Width 12.6, Platelet Count 222, Mean Platelet Volume 8.2, Neutrophils (%) (Auto) 80.7H, Lymphocytes ( %) (Auto) 10.2L, Monocytes (%) (Auto) 7.8, Eosinophils (%) (Auto) 1.0, Basophils (%) (Auto) 0.3, Sodium Level 139, Potassium Level 3.8, Chloride Level 106, Carbon Dioxide Level 24, Anion Gap 9, Blood Urea Nitrogen 19H, Creatinine 1.7H, Estimat Glomerular Filtration Rate 36.5, Glucose Level 267H, Calcium Level 8.2L, Vancomycin Level Trough 6.7 Height (Feet): 5 Height (Inches): 6.00 Weight (Pounds): 193 General Appearance: no apparent distress, alert EENT: normal ENT inspection Neck: normal alignment, supple Cardiovascular: normal rate, regular rhythm Respiratory/Chest: lungs clear, normal breath sounds Abdomen: non tender, soft Edema: no edema noted Arm (L), no edema noted Arm (R), no edema noted Leg (L), no edema noted Leg (R), no edema noted Pedal (L), no edema noted Pedal (R), no edema noted Generalized Travis Yoon M.D. May 15, 2018 08:53
[2018-05-15] MEDS: Vancomycin 1250mg/D5W 250ml IVPB SCH (10:04)
--- NOTE | 2018-05-15 12:15 | Neurology Progress Note ---
Interim History Interim History Interim History Ms. Gupta feels much better. She is sitting up in a chair now. The mind is clear. She feels stronger. She is able to stand and walk much better. She still has numbness in both her legs. The pain in her legs is significantly better. The strength in the legs is also better. She denies any new neurologic symptoms. Review of Systems Neuro Review of Systems Benign. Objective Physical Exam Last Vital Signs Date Time Temp Pulse Resp B/P (MAP) Pulse Ox O2 Delivery O2 Flow Rate FiO2 05/15/18 08:13 Room Air 05/15/18 04:00 99.0 82 18 120/66 (84) 97 99.0 05/13/18 09:00 2.0 Laboratory Tests Test 05/15/18 07:30 White Blood Count 12.4 K/UL (4.8-10.8) H Red Blood Count 3.57 M/UL (4.20-5.40) L Hemoglobin 10.5 G/DL (12.0-16.0) L Hematocrit 31.5 % (37.0-47.0) L Mean Corpuscular Volume 88 FL (80-99) Mean Corpuscular Hemoglobin 29.6 PG (27.0-31.0) Mean Corpuscular Hemoglobin Concent 33.5 G/DL (32.0-36.0) Red Cell Distribution Width 12.6 % (11.6-14.8) Platelet Count 222 K/UL (150-450) Mean Platelet Volume 8.2 FL (6.5-10.1) Neutrophils (%) (Auto) 80.7 % (45.0-75.0) H Lymphocytes (%) (Auto) 10.2 % (20.0-45.0) L Monocytes (%) (Auto) 7.8 % (1.0-10.0) Eosinophils (%) (Auto) 1.0 % (0.0-3.0) Basophils (%) (Auto) 0.3 % (0.0-2.0) Sodium Level 139 MMOL/L (136-145) Potassium Level 3.8 MMOL/L (3.5-5.1) Chloride Level 106 MMOL/L (98-107) Carbon Dioxide Level 24 MMOL/L (21-32) Anion Gap 9 mmol/L (5-15) Blood Urea Nitrogen 19 mg/dL (7-18) H Creatinine 1.7 MG/DL (0.55-1.30) H Estimat Glomerular Filtration Rate 36.5 mL/min (>60) Glucose Level 267 MG/DL (74-106) H Calcium Level 8.2 MG/DL (8.5-10.1) L Vancomycin Level Trough 6.7 ug/mL (5.0-12.0) Neurologic Exam Objective PHYSICAL EXAMINATION: GENERAL: She is a well-developed, well-nourished, slightly obese black lady, sitting up in a chair, in no acute distress. HEAD: Normocephalic and atraumatic. EENT: Examination benign. NECK: No neck rigidity was observed. NEUROLOGICAL EXAMINATION: MENTAL STATUS EXAMINATION: She was awake and alert. She was oriented to person, place, and time. She was able to recall 3/3 words immediately, but could only remember 2/3 words in 1 minute and 3 minutes. She was able to remember presidents, Trump through [employer]. Her mathematical skills were impaired. Her visuospatial function was also impaired. SPEECH: She had a mild dysarthria, but it should be noted that she was edentulous. LANGUAGE: She had an anomia for low-frequency words, however, it is unclear as to what her educational level is. CRANIAL NERVE EXAMINATION: II: The visual kim were intact on confrontation testing. III, IV & : The external ocular movements were full and the pupils 3 mm in diameter, equal, round, regular, and reactive to light. V: She had normal facial sensations, and the temporales, masseters, and pterygoids functioned normally. VII: She had normal facial expressions and no facial asymmetry. VIII: She was able to hear well bilaterally and had no nystagmus. IX: The palate moved symmetrically on phonation. X: She had no hoarseness of voice. XI: The sternocleidomastoids and trapezii functioned normally. XII: The tongue was in midline without any fasciculations or atrophy. MOTOR SYSTEM: The tone was normal in all four extremities. Examination of muscle mass revealed no focal wasting. Examination of power revealed G 5/5 power in all muscle groups. SENSORY EXAMINATION: She had intact sensations to pinprick, light touch, and graphesthesia, but she complained of altered sensations in the right leg more than the left leg. REFLEXES: 0 at the biceps, triceps, brachioradialis, knees, and ankles. The plantar responses were flexor bilaterally. COORDINATION: She performed well on [id number] and [id number] testing. STANCE: She stood up with contact guard. GAIT: She walked well with contact guard. Impression/Recommendations Diagnostic Impression 1. Ms. Tammy Gupta is a 68-year-old, right-handed, black lady, with a past history of hypertension and diabetes mellitus, who got out of bed on the morning of 05/12/18 and her legs collapsed. Following that she was unable to walk because of pain, numbness, and weakness in both her lower extremities. She also had some low back pain. 2. She feels much better. She is sitting up in a chair now. The mind is clear. She feels stronger. She is able to stand and walk much better. She still has numbness in both her legs. The pain in her legs is significantly better. The strength in the legs is also better. She denies any new neurologic symptoms. 3. On neurological examination, at this time, she is fully oriented. She has mild problems with memory, visuospatial function, higher cognitive function, and language. The strength in both lower extremities has returned to normal with no give way weakness. Her deep tendon reflexes are globally absent. The plantar responses are flexor. She is able to stand and walk with contact guard. 4. Laboratory data on admission revealed that her WBC count was elevated to 15, 400 with a left-sided shift with 75% neutrophils. The chemistry panel revealed that the BUN was elevated at 35, creatinine was elevated at 2.5, and blood glucose was elevated at 385. Her urinalysis revealed 2+ leukocyte esterase, and 5-10 red blood cells, and 20-30 white blood cells with a moderate amount of bacteria in the urine. 5. Further laboratory tests have revealed that her HbA1C is at 11.8% confirming that her diabetes is not controlled. 6. The CT scan of the brain without contrast is benign for acute pathology, but does reveal some atrophy and deep white matter changes. 7. The MRI of the LS spine done on 05/12/18 revealed: - Chronic degenerative spondylosis at multiple levels largely characterized by facet arthropathy. - Moderate central spinal stenosis L4-5 with moderate to severe bilateral foraminal stenosis. - L5-S1 moderate to severe bilateral foraminal stenosis. - L3-4 mild to moderate bilateral foraminal stenosis. 8. The patient's history, neurological examination, laboratory data, and imaging studies are most compatible with a fall due to her legs giving way and followed by an inability to walk due to pain, numbness, and weakness in both her lower extremities. In addition, she also had a urinary tract infection, and diabetes out of control. 9. Her motor function has improved significantly and she is able to stand and walk well. 10. She has been noted to have a possible bladder mass which is being investigated. Recommendations 1. Continue present management. 2. Mobilize with the help of physical and occupational therapy. 3. Investigations for bladder mass. 4. Encourage to increase activity. Sahara Zurita M.D., M.S.P.[facility]ore. SAHARA ZURITA May 15, 2018 12:15
--- NOTE | 2018-05-15 14:59 | Consultation ---
History of Present Illness General Date patient seen: May 15, 2018 Chief Complaint: General Complaint Reason for Consultation: left thigh cellulitis possible abscess Present Illness HPI 68F multiple medical comorbidities as noted below currently hospitalized for care and management. today febrile 102 and still with leukocytosis tho trending down. on evaluation noted to have possible abscess of posterior medial left thigh. surgery called to evaluate. patient seen, chart reviewed, patient examined. states pain around area identified. no n/v. otherwise well. Allergies: Coded Allergies: ASPIRIN (Verified Allergy, Unknown, 09/26/16) METFORMIN (Verified Allergy, Unknown, 09/26/16) Medication History Scheduled Atorvastatin (Lipitor), 80 MG ORAL BEDTIME, (Reported) Gabapentin* (Gabapentin*), 600 MG ORAL BID, (Reported) Hydrochlorothiazide* (Hydrochlorothiazide*), 25 MG ORAL DAILY, (Reported) Insulin Glargine (Lantus), Unknown Dose SUBQ BEDTIME, (Reported) Levofloxacin (Levofloxacin*), 500 MG ORAL DAILY, (Reported) Lisinopril (Lisinopril*), 20 MG ORAL DAILY, (Reported) Miscellaneous Medications Insulin Aspart* (Novolog*), Unknown Dose SUBQ, (Reported) Patient History History Provided By: Patient, Medical Record, PMD Healthcare decision maker Resuscitation status Full Code Advanced Directive on File No Past Medical/Surgical History Past Medical/Surgical History: (1) Cellulitis of left thigh (2) Chemical exposure (3) Hyperglycemia (4) Dizziness (5) Weakness (6) UTI (urinary tract infection) (7) Paresthesia of both lower extremities (8) Weakness of extremity (9) Leukocytosis (10) Sepsis (11) Bladder mass Review of Systems All Other Systems: negative except mentioned in HPI Physical Exam General Appearance: no apparent distress, alert HEENT: mucous membranes moist, PERRL Neck: normal inspection Respiratory/Chest: normal breath sounds, no respiratory distress, no accessory muscle use Cardiovascular/Chest: normal rate, regular rhythm Abdomen: soft, no organomegaly, no mass Extremities: other - left posterior medial thigh with cellulitis, raised, warm , tender, skin blister, with serous drainage, no fluctance Skin Exam: normal pigmentation, warm/dry Neurologic: alert, responsive Last 24 Hour Vital Signs Date Time Temp Pulse Resp B/P (MAP) Pulse Ox O2 Delivery O2 Flow Rate FiO2 05/15/18 14:33 102.1 85 18 105/69 (81) 98 102.1 05/15/18 12:00 98.7 18 129/93 (105) 97 98.7 05/15/18 08:13 Room Air 05/15/18 08:00 99.0 85 18 141/70 (93) 96 99.0 05/15/18 04:00 99.0 82 18 120/66 (84) 97 99.0 05/15/18 00:00 99.0 85 18 128/62 (84) 98 99.0 05/14/18 22:36 98.2 05/14/18 21:37 98.2 05/14/18 21:00 Room Air 05/14/18 20:00 99.7 88 17 125/55 (78) 100 99.7 05/14/18 20:00 99.7 88 17 125/55 (78) 100 99.7 05/14/18 17:00 98.2 82 18 117/58 (77) 58 98.2 Intake and Output 05/14/18 05/15/18 19:00 07:00 Intake Total 1486.5 ml 1282.5 ml Output Total 600 ml 400 ml Balance 886.5 ml 882.5 ml Intake Oral 1384 ml 240 ml IV Total 102.5 ml 1042.5 ml Output Urine Total 600 ml 400 ml # Voids 2 Laboratory Tests Test 05/15/18 07:30 White Blood Count 12.4 K/UL (4.8-10.8) H Red Blood Count 3.57 M/UL (4.20-5.40) L Hemoglobin 10.5 G/DL (12.0-16.0) L Hematocrit 31.5 % (37.0-47.0) L Mean Corpuscular Volume 88 FL (80-99) Mean Corpuscular Hemoglobin 29.6 PG (27.0-31.0) Mean Corpuscular Hemoglobin Concent 33.5 G/DL (32.0-36.0) Red Cell Distribution Width 12.6 % (11.6-14.8) Platelet Count 222 K/UL (150-450) Mean Platelet Volume 8.2 FL (6.5-10.1) Neutrophils (%) (Auto) 80.7 % (45.0-75.0) H Lymphocytes (%) (Auto) 10.2 % (20.0-45.0) L Monocytes (%) (Auto) 7.8 % (1.0-10.0) Eosinophils (%) (Auto) 1.0 % (0.0-3.0) Basophils (%) (Auto) 0.3 % (0.0-2.0) Sodium Level 139 MMOL/L (136-145) Potassium Level 3.8 MMOL/L (3.5-5.1) Chloride Level 106 MMOL/L (98-107) Carbon Dioxide Level 24 MMOL/L (21-32) Anion Gap 9 mmol/L (5-15) Blood Urea Nitrogen 19 mg/dL (7-18) H Creatinine 1.7 MG/DL (0.55-1.30) H Estimat Glomerular Filtration Rate 36.5 mL/min (>60) Glucose Level 267 MG/DL (74-106) H Calcium Level 8.2 MG/DL (8.5-10.1) L Vancomycin Level Trough 6.7 ug/mL (5.0-12.0) Height (Feet): 5 Height (Inches): 6.00 Weight (Pounds): 193 Medications Current Medications Medications (Trade) Dose Ordered Sig/Jhon Route PRN Reason Start Time Stop Time Status Last Admin Dose Admin Acetaminophen (Tylenol) 650 mg Q4H PRN ORAL Mild Pain (Pain Scale 1-3) 05/12/18 16:45 06/11/18 16:44 05/15/18 08:45 Atorvastatin Calcium (Lipitor) 80 mg QHS ORAL 05/12/18 21:00 06/11/18 20:59 05/14/18 21:00 Barium Sulfate (Readi-Cat 2) 450 ea NOW PRN ORAL Radiology Procedure 05/13/18 18:30 05/15/18 18:22 Dextrose (Dextrose 50%) 25 ml STAT PRN IV Hypoglycemia 05/12/18 16:45 06/11/18 16:44 Dextrose (Dextrose 50%) 50 ml STAT PRN IV Hypoglycemia 05/12/18 16:45 06/11/18 16:44 Diphenhydramine HCl (Benadryl) 25 mg Q6H PRN ORAL Itching/Pruritis 05/12/18 16:45 06/11/18 16:44 Docusate Sodium (Colace) 100 mg EVERY 12 HOURS ORAL 05/12/18 21:00 06/11/18 20:59 05/15/18 08:44 Heparin Sodium (Porcine) (Heparin 5000 units/ml) 5,000 units EVERY 8 HOURS SUBQ 05/12/18 22:00 06/11/18 21:59 05/15/18 05:40 Insulin Aspart (NovoLOG) BEFORE MEALS AND HS SUBQ 05/12/18 21:00 06/11/18 20:59 05/15/18 13:09 Insulin Detemir (Levemir) 15 units BEDTIME SUBQ 05/15/18 21:00 06/12/18 20:59 Iopamidol (Isovue-300 100ml) 100 ml NOW PRN INJ Radiology Procedure 05/13/18 18:30 05/15/18 18:29 Ondansetron HCl (Zofran) 4 mg Q6H PRN IVP Nausea & Vomiting 05/12/18 16:45 06/11/18 16:44 05/13/18 17:37 Piperacillin Sod/ Tazobactam Sod 3.375 gm/Sodium Chloride 110 ml @ 27.5 mls/hr Q8H IVPB 05/13/18 18:00 05/20/18 17:59 05/15/18 13:07 Sodium Chloride 1,000 ml @ 75 mls/hr [id number] IVLG 05/12/18 19:00 06/11/18 18:59 05/15/18 00:58 Vancomycin HCl (Vanco rx to dose) 1 ea DAILY PRN MISC Per rx protocol 05/13/18 06:30 06/12/18 06:29 Vancomycin HCl/ Dextrose 250 ml @ 166.667 mls/hr Q24H IVPB 05/15/18 09:00 05/20/18 08:59 05/15/18 10:04 Assessment/Plan Problem List: (1) Cellulitis of left thigh Assessment & Plan: 68F with fever, leukocytosis and left thigh cellulitis. left posterior medial thigh with cellulitis, raised, warm, tender, skin blister , with serous drainage, no fluctuance. blisterectomy at bedside. serous fluid drained. skin protectant, non adherent dressing daily. will monitor ultrasound to ensure to deep abscess cont abx thank you for this consultation. ICD Codes: L03.116 - Cellulitis of left lower limb SNOMED: [id number] Status: stable Rylan Angelo May 15, 2018 14:59
--- NOTE | 2018-05-15 15:14 | Infectious Diseases Prog Note ---
Assessment/Plan Problems: (1) Sepsis Assessment & Plan: with fever , on vancomycin and zosyn empirically pending blood culture, source suspect left upper thigh skin boil , bladder lesion and urine infection , needs to rule out malignancy of the bladder , with cystoscopy , surgery eval for left upper thigh boil (2) UTI (urinary tract infection) Assessment & Plan: due to proteus mirabilis , already on zosyn pending blood culture (3) Weakness of extremity Assessment & Plan: rule out CVA, with negative head CT , neurology is following (4) Leukocytosis Assessment & Plan: suspect due to UTI and dehydration , monitor CBC (5) Bladder mass Assessment & Plan: recommend cystoscopy and biopsy , urology is following (6) Cellulitis of left thigh Assessment & Plan: with boil formation and blisters , surgery eval is in progress , may need I&D if formed abscess Subjective Constitutional: Reports: fever, fatigue HEENT: Reports: no symptoms Respiratory: Reports: no symptoms Breasts: Reports: no symptoms Cardiovascular: Reports: no symptoms Gastrointestinal/Abdominal: Reports: no symptoms Genitourinary: Reports: dysuria, hematuria Neurologic: Reports: weakness Psychiatric: Reports: no symptoms Skin: Reports: other - left upper thigh skin boil with blisters Endocrine: Reports: no symptoms Hematologic: Reports: no symptoms Musculoskeletal: Reports: pain Allergies: Coded Allergies: ASPIRIN (Verified Allergy, Unknown, 09/26/16) METFORMIN (Verified Allergy, Unknown, 09/26/16) Objective Vital Signs Last 24 Hour Vital Signs Date Time Temp Pulse Resp B/P (MAP) Pulse Ox O2 Delivery O2 Flow Rate FiO2 05/15/18 15:00 102.1 05/15/18 14:33 102.1 85 18 105/69 (81) 98 102.1 05/15/18 12:00 98.7 18 129/93 (105) 97 98.7 05/15/18 08:13 Room Air 05/15/18 08:00 99.0 85 18 141/70 (93) 96 99.0 05/15/18 04:00 99.0 82 18 120/66 (84) 97 99.0 05/15/18 00:00 99.0 85 18 128/62 (84) 98 99.0 05/14/18 22:36 98.2 05/14/18 21:37 98.2 05/14/18 21:00 Room Air 05/14/18 20:00 99.7 88 17 125/55 (78) 100 99.7 05/14/18 20:00 99.7 88 17 125/55 (78) 100 99.7 05/14/18 17:00 98.2 82 18 117/58 (77) 58 98.2 Height (Feet): 5 Height (Inches): 6.00 Weight (Pounds): 193 General Appearance: WD/WN, no acute distress HEENT: normocephalic, atraumatic, anicteric, mucous membranes moist, PERRL Respiratory/Chest: chest wall non-tender, lungs clear, normal breath sounds, no respiratory distress, no accessory muscle use Cardiovascular: normal peripheral pulses, normal rate, regular rhythm, no gallop/murmur, no JVD Abdomen: normal bowel sounds, soft, non tender, no organomegaly, non distended , no mass, no scars Extremities: no cyanosis, no clubbing Skin: no rash, lesions, other - left upper buttock skin boil with blisters Neurologic/Psychiatric: alert, oriented x 3, responsive Lymphatic: no neck adenopathy, no groin adenopathy Musculoskeletal: normal muscle bulk, no effusion Microbiology Date/Time Source Procedure Growth Status 05/13/18 08:05 Blood Blood Culture - Preliminary NO GROWTH AFTER 24 HOURS Resulted Laboratory Tests Test 05/15/18 07:30 White Blood Count 12.4 K/UL (4.8-10.8) H Red Blood Count 3.57 M/UL (4.20-5.40) L Hemoglobin 10.5 G/DL (12.0-16.0) L Hematocrit 31.5 % (37.0-47.0) L Mean Corpuscular Volume 88 FL (80-99) Mean Corpuscular Hemoglobin 29.6 PG (27.0-31.0) Mean Corpuscular Hemoglobin Concent 33.5 G/DL (32.0-36.0) Red Cell Distribution Width 12.6 % (11.6-14.8) Platelet Count 222 K/UL (150-450) Mean Platelet Volume 8.2 FL (6.5-10.1) Neutrophils (%) (Auto) 80.7 % (45.0-75.0) H Lymphocytes (%) (Auto) 10.2 % (20.0-45.0) L Monocytes (%) (Auto) 7.8 % (1.0-10.0) Eosinophils (%) (Auto) 1.0 % (0.0-3.0) Basophils (%) (Auto) 0.3 % (0.0-2.0) Sodium Level 139 MMOL/L (136-145) Potassium Level 3.8 MMOL/L (3.5-5.1) Chloride Level 106 MMOL/L (98-107) Carbon Dioxide Level 24 MMOL/L (21-32) Anion Gap 9 mmol/L (5-15) Blood Urea Nitrogen 19 mg/dL (7-18) H Creatinine 1.7 MG/DL (0.55-1.30) H Estimat Glomerular Filtration Rate 36.5 mL/min (>60) Glucose Level 267 MG/DL (74-106) H Calcium Level 8.2 MG/DL (8.5-10.1) L Vancomycin Level Trough 6.7 ug/mL (5.0-12.0) Current Medications Medications (Trade) Dose Ordered Sig/Jhon Route PRN Reason Start Time Stop Time Status Last Admin Dose Admin Acetaminophen (Tylenol) 650 mg Q4H PRN ORAL Mild Pain (Pain Scale 1-3) 05/12/18 16:45 06/11/18 16:44 05/15/18 15:00 Atorvastatin Calcium (Lipitor) 80 mg QHS ORAL 05/12/18 21:00 06/11/18 20:59 05/14/18 21:00 Barium Sulfate (Readi-Cat 2) 450 ea NOW PRN ORAL Radiology Procedure 05/13/18 18:30 05/15/18 18:22 Dextrose (Dextrose 50%) 25 ml STAT PRN IV Hypoglycemia 05/12/18 16:45 06/11/18 16:44 Dextrose (Dextrose 50%) 50 ml STAT PRN IV Hypoglycemia 05/12/18 16:45 06/11/18 16:44 Diphenhydramine HCl (Benadryl) 25 mg Q6H PRN ORAL Itching/Pruritis 05/12/18 16:45 06/11/18 16:44 Docusate Sodium (Colace) 100 mg EVERY 12 HOURS ORAL 05/12/18 21:00 06/11/18 20:59 05/15/18 08:44 Heparin Sodium (Porcine) (Heparin 5000 units/ml) 5,000 units EVERY 8 HOURS SUBQ 05/12/18 22:00 06/11/18 21:59 05/15/18 15:05 Insulin Aspart (NovoLOG) BEFORE MEALS AND HS SUBQ 05/12/18 21:00 06/11/18 20:59 05/15/18 13:09 Insulin Detemir (Levemir) 15 units BEDTIME SUBQ 05/15/18 21:00 06/12/18 20:59 Iopamidol (Isovue-300 100ml) 100 ml NOW PRN INJ Radiology Procedure 05/13/18 18:30 05/15/18 18:29 Ondansetron HCl (Zofran) 4 mg Q6H PRN IVP Nausea & Vomiting 05/12/18 16:45 06/11/18 16:44 05/13/18 17:37 Piperacillin Sod/ Tazobactam Sod 3.375 gm/Sodium Chloride 110 ml @ 27.5 mls/hr Q8H IVPB 05/13/18 18:00 05/20/18 17:59 05/15/18 13:07 Sodium Chloride 1,000 ml @ 75 mls/hr [id number] IVLG 05/12/18 19:00 06/11/18 18:59 05/15/18 15:00 Vancomycin HCl (Vanco rx to dose) 1 ea DAILY PRN MISC Per rx protocol 05/13/18 06:30 06/12/18 06:29 Vancomycin HCl/ Dextrose 250 ml @ 166.667 mls/hr Q24H IVPB 05/15/18 09:00 05/20/18 08:59 05/15/18 10:04 Alexis Bernard M.D. May 15, 2018 15:14
[2018-05-15] MEDS: Atorvastatin 80mg tab ORAL SCH (20:12)
[2018-05-15] MEDS: Levemir Flexpen SUBQ SCH (20:37)
[2018-05-16] VITALS: BP 125/84
[2018-05-16] MEDS: Piperacillin/Tazobactam 3.375 GM in NS 110 ML IVPB SCH ×3 (01:51→18:17)
[2018-05-16 04:00] VITALS: BP 126/70
[2018-05-16] MEDS: Heparin 5000 units/ml inj SUBQ SCH ×3 (05:10→21:02)
[2018-05-16] MEDS: NovoLOG Insulin Flexpen SUBQ SCH ×4 (06:05→21:06)
[2018-05-16 08:00] VITALS: BP 136/71
[2018-05-16 08:55] LABS: BASOPHILS % (AUTO) 0.6 % (0.0-2.0); EOSINOPHILS % (AUTO) 0.7 % (0.0-3.0); HEMATOCRIT 31.7 % (37.0-47.0); HEMOGLOBIN 10.5 G/DL (12.0-16.0); LYMPHOCYTES % (AUTO) 12.4 % (20.0-45.0); MEAN CORPUSCULAR VOLUME 89 FL (80-99); MONOCYTES % (AUTO) 7.8 % (1.0-10.0); NEUTROPHILS % (AUTO) 78.5 % (45.0-75.0); PLATELET COUNT 256 K/UL (150-450); RED BLOOD COUNT 3.57 M/UL (4.20-5.40); RED CELL DISTRIBUTION WIDTH 12.9 % (11.6-14.8); WHITE BLOOD COUNT 14.6 K/UL (4.8-10.8)
[2018-05-16] MEDS: Docusate 100mg cap ORAL SCH ×2 (09:00→21:00)
[2018-05-16 09:02] LABS: ANION GAP 11 mmol/L (5-15); BLOOD UREA NITROGEN 18 mg/dL (7-18); CARBON DIOXIDE 23 MMOL/L (21-32); CHLORIDE 105 MMOL/L (98-107); CREATININE 1.9 MG/DL (0.55-1.30); POTASSIUM 3.6 MMOL/L (3.5-5.1); SODIUM 139 MMOL/L (136-145)
--- NOTE | 2018-05-16 09:54 | Nephrology Progress Note ---
Assessment/Plan Assessment/Plan 1. LE Weakness- previous CVA - decompensation from underlying UTI - doing well with PT 2. UTI/Buttuck Boil/blister- Abx per ID and I&D per Gen surg 3. DM- on ISS + increase lantus 4. MATEO- Cr 1.9. . Continue Abx and IVFs. Check bladder scan and monitor Vanc levels 5. DVT prphylaxsis with heparin 6. Bladder Lesion- CT Urogram. Cysto to eval bladder mass 7. Hypokalemia- replace prn Subjective Date patient seen: May 16, 2018 Time patient seen: 09:51 ROS Limited/Unobtainable: No Constitutional: Reports: weakness Allergies: Coded Allergies: ASPIRIN (Verified Allergy, Unknown, 09/26/16) METFORMIN (Verified Allergy, Unknown, 09/26/16) All Systems: reviewed and negative except above Subjective Patient today feeling better. Doing well with PT Objective Last 24 Hour Vital Signs Date Time Temp Pulse Resp B/P (MAP) Pulse Ox O2 Delivery O2 Flow Rate FiO2 05/16/18 05:14 100.1 05/16/18 04:00 100.2 86 16 126/70 (88) 96 100.2 05/16/18 00:00 100.5 96 18 125/84 (98) 96 100.5 05/15/18 21:00 Room Air 05/15/18 20:54 102.5 05/15/18 20:00 101.9 96 19 121/80 (94) 98 101.9 05/15/18 19:55 101.9 05/15/18 16:00 100.9 94 18 109/64 (79) 98 100.9 05/15/18 15:00 102.1 05/15/18 14:33 102.1 85 18 105/69 (81) 98 102.1 05/15/18 12:00 98.7 18 129/93 (105) 97 98.7 Intake and Output 05/15/18 05/16/18 19:00 07:00 Intake Total 1350 ml 1057.5 ml Output Total 500 ml 200 ml Balance 850 ml 857.5 ml Intake Oral 750 ml 300 ml IV Total 600 ml 757.5 ml Output Urine Total 500 ml 200 ml Laboratory Tests 05/16/18 07:32: White Blood Count 14.6H, Red Blood Count 3.57L, Hemoglobin 10.5L, Hematocrit 31.7L, Mean Corpuscular Volume 89, Mean Corpuscular Hemoglobin 29.5, Mean Corpuscular Hemoglobin Concent 33.3, Red Cell Distribution Width 12.9, Platelet Count 256, Mean Platelet Volume 8.6, Neutrophils (%) (Auto) 78.5H, Lymphocytes ( %) (Auto) 12.4L, Monocytes (%) (Auto) 7.8, Eosinophils (%) (Auto) 0.7, Basophils (%) (Auto) 0.6, Sodium Level 139, Potassium Level 3.6, Chloride Level 105, Carbon Dioxide Level 23, Anion Gap 11, Blood Urea Nitrogen 18, Creatinine 1.9H, Estimat Glomerular Filtration Rate 32.0, Glucose Level 238H, Calcium Level 9.0 Height (Feet): 5 Height (Inches): 6.00 Weight (Pounds): 193 General Appearance: WD/WN, no apparent distress EENT: PERRL/EOMI Neck: non-tender, normal alignment Respiratory/Chest: lungs clear, normal breath sounds Abdomen: non tender, soft Edema: no edema noted Arm (L), no edema noted Arm (R), no edema noted Leg (L), no edema noted Leg (R), no edema noted Pedal (L), no edema noted Pedal (R), no edema noted Generalized Travis Yoon M.D. May 16, 2018 09:54
[2018-05-16] MEDS: Vancomycin 1250mg/D5W 250ml IVPB SCH (10:07)
--- NOTE | 2018-05-16 11:19 | Neurology Progress Note ---
Interim History Interim History Interim History Ms. Gupta feels very well. She is in bed now. She was up in a chair earlier. The mind is clear. She feels stronger. She is able to stand and walk much better. She still has numbness in both her legs. The pain in her legs has resolved. The strength in the legs is much better. She denies any new neurologic symptoms. Review of Systems Neuro Review of Systems Benign. Objective Physical Exam Last Vital Signs Date Time Temp Pulse Resp B/P (MAP) Pulse Ox O2 Delivery O2 Flow Rate FiO2 05/16/18 09:00 Room Air 05/16/18 08:00 98.6 91 20 136/71 (92) 99 98.6 05/13/18 09:00 2.0 Laboratory Tests Test 05/16/18 07:32 White Blood Count 14.6 K/UL (4.8-10.8) H Red Blood Count 3.57 M/UL (4.20-5.40) L Hemoglobin 10.5 G/DL (12.0-16.0) L Hematocrit 31.7 % (37.0-47.0) L Mean Corpuscular Volume 89 FL (80-99) Mean Corpuscular Hemoglobin 29.5 PG (27.0-31.0) Mean Corpuscular Hemoglobin Concent 33.3 G/DL (32.0-36.0) Red Cell Distribution Width 12.9 % (11.6-14.8) Platelet Count 256 K/UL (150-450) Mean Platelet Volume 8.6 FL (6.5-10.1) Neutrophils (%) (Auto) 78.5 % (45.0-75.0) H Lymphocytes (%) (Auto) 12.4 % (20.0-45.0) L Monocytes (%) (Auto) 7.8 % (1.0-10.0) Eosinophils (%) (Auto) 0.7 % (0.0-3.0) Basophils (%) (Auto) 0.6 % (0.0-2.0) Sodium Level 139 MMOL/L (136-145) Potassium Level 3.6 MMOL/L (3.5-5.1) Chloride Level 105 MMOL/L (98-107) Carbon Dioxide Level 23 MMOL/L (21-32) Anion Gap 11 mmol/L (5-15) Blood Urea Nitrogen 18 mg/dL (7-18) Creatinine 1.9 MG/DL (0.55-1.30) H Estimat Glomerular Filtration Rate 32.0 mL/min (>60) Glucose Level 238 MG/DL (74-106) H Calcium Level 9.0 MG/DL (8.5-10.1) Neurologic Exam Objective PHYSICAL EXAMINATION: GENERAL: She is a well-developed, well-nourished, slightly obese black lady, lying in bed, in no acute distress. HEAD: Normocephalic and atraumatic. EENT: Examination benign. NECK: No neck rigidity was observed. NEUROLOGICAL EXAMINATION: MENTAL STATUS EXAMINATION: She was awake and alert. She was oriented to person, place, and time. She was able to recall 3/3 words immediately, and in 1 minute and 3 minutes. She was able to remember presidents, Trump through [employer]. Her mathematical skills were impaired. Her visuospatial function was also impaired. SPEECH: She had a mild dysarthria, but it should be noted that she was edentulous. LANGUAGE: She had an anomia for low-frequency words, however, it is unclear as to what her educational level is. CRANIAL NERVE EXAMINATION: II: The visual kim were intact on confrontation testing. III, IV & : The external ocular movements were full and the pupils 3 mm in diameter, equal, round, regular, and reactive to light. V: She had normal facial sensations, and the temporales, masseters, and pterygoids functioned normally. VII: She had normal facial expressions and no facial asymmetry. VIII: She was able to hear well bilaterally and had no nystagmus. IX: The palate moved symmetrically on phonation. X: She had no hoarseness of voice. XI: The sternocleidomastoids and trapezii functioned normally. XII: The tongue was in midline without any fasciculations or atrophy. MOTOR SYSTEM: The tone was normal in all four extremities. Examination of muscle mass revealed no focal wasting. Examination of power revealed G 5/5 power in all muscle groups. SENSORY EXAMINATION: She had intact sensations to pinprick, light touch, and graphesthesia, but she complained of altered sensations in the right leg more than the left leg. REFLEXES: 0 at the biceps, triceps, brachioradialis, knees, and ankles. The plantar responses were flexor bilaterally. COORDINATION: She performed well on [id number] and [id number] testing. STANCE: She stood up with contact guard. GAIT: She walked well with contact guard. Impression/Recommendations Diagnostic Impression 1. Ms. Tammy Gupta is a 68-year-old, right-handed, black lady, with a past history of hypertension and diabetes mellitus, who got out of bed on the morning of 05/12/18 and her legs collapsed. Following that she was unable to walk because of pain, numbness, and weakness in both her lower extremities. She also had some low back pain. 2. She feels very well. She is in bed now, but was up in a chair earlier. The mind is clear. She feels stronger. She is able to stand and walk much better. She still has numbness in both her legs. The pain in her legs has resolved. The strength in the legs is much better. She denies any new neurologic symptoms. 3. On neurological examination, at this time, she is fully oriented. She has mild problems with memory, visuospatial function, higher cognitive function, and language. The strength in both lower extremities has returned to normal with no give way weakness. Her deep tendon reflexes are globally absent. The plantar responses are flexor. She is able to stand and walk with contact guard. 4. Laboratory data on admission revealed that her WBC count was elevated to 15, 400 with a left-sided shift with 75% neutrophils. The chemistry panel revealed that the BUN was elevated at 35, creatinine was elevated at 2.5, and blood glucose was elevated at 385. Her urinalysis revealed 2+ leukocyte esterase, and 5-10 red blood cells, and 20-30 white blood cells with a moderate amount of bacteria in the urine. 5. Further laboratory tests have revealed that her HbA1C is at 11.8% confirming that her diabetes is not controlled. 6. The CT scan of the brain without contrast is benign for acute pathology, but does reveal some atrophy and deep white matter changes. 7. The MRI of the LS spine done on 05/12/18 revealed: - Chronic degenerative spondylosis at multiple levels largely characterized by facet arthropathy. - Moderate central spinal stenosis L4-5 with moderate to severe bilateral foraminal stenosis. - L5-S1 moderate to severe bilateral foraminal stenosis. - L3-4 mild to moderate bilateral foraminal stenosis. 8. The patient's history, neurological examination, laboratory data, and imaging studies are most compatible with a fall due to her legs giving way and followed by an inability to walk due to pain, numbness, and weakness in both her lower extremities. In addition, she also had a urinary tract infection, and diabetes out of control. 9. Her motor function has improved significantly and she is able to stand and walk well. 10. She has been noted to have a possible bladder mass which is being investigated. Recommendations 1. Continue present management. 2. Mobilize with the help of physical and occupational therapy. 3. Investigations for bladder mass. 4. Encourage to increase activity. Sahara Zurita M.D., M.S.P.Theodore. SAHARA ZURITA May 16, 2018 11:19
[2018-05-16 12:00] VITALS: BP 150/66
--- NOTE | 2018-05-16 12:29 | Cardiology Report ---
APPROVED REPORT EKG Measurement Heart [id number] ND [id number] Sinus tachycardia with premature ventricular complexes or fusion complexes Otherwise normal ECG
--- NOTE | 2018-05-16 12:51 | General Surgery Progress Note ---
General Surgery-Progress Note Subjective Additional Comments leukocytosis 14k today. still with pain in thigh Objective Last 24 Hour Vital Signs Date Time Temp Pulse Resp B/P (MAP) Pulse Ox O2 Delivery O2 Flow Rate FiO2 05/16/18 12:00 100.0 96 18 150/66 (94) 96 100.0 05/16/18 09:00 Room Air 05/16/18 08:00 98.6 91 20 136/71 (92) 99 98.6 05/16/18 05:14 100.1 05/16/18 04:00 100.2 86 16 126/70 (88) 96 100.2 05/16/18 00:00 100.5 96 18 125/84 (98) 96 100.5 05/15/18 21:00 Room Air 05/15/18 20:54 102.5 05/15/18 20:00 101.9 96 19 121/80 (94) 98 101.9 05/15/18 19:55 101.9 05/15/18 16:00 100.9 94 18 109/64 (79) 98 100.9 05/15/18 15:00 102.1 05/15/18 14:33 102.1 85 18 105/69 (81) 98 102.1 I&O Intake and Output 05/15/18 05/16/18 19:00 07:00 Intake Total 1350 ml 1057.5 ml Output Total 500 ml 200 ml Balance 850 ml 857.5 ml Intake Oral 750 ml 300 ml IV Total 600 ml 757.5 ml Output Urine Total 500 ml 200 ml Dressing: saturated Wound: other Drains: none Cardiovascular: RSR Respiratory: clear Abdomen: soft, non-tender, present bowel sounds Extremities: edema, tenderness, no cyanosis Laboratory Tests Test 05/16/18 07:32 White Blood Count 14.6 K/UL (4.8-10.8) H Red Blood Count 3.57 M/UL (4.20-5.40) L Hemoglobin 10.5 G/DL (12.0-16.0) L Hematocrit 31.7 % (37.0-47.0) L Mean Corpuscular Volume 89 FL (80-99) Mean Corpuscular Hemoglobin 29.5 PG (27.0-31.0) Mean Corpuscular Hemoglobin Concent 33.3 G/DL (32.0-36.0) Red Cell Distribution Width 12.9 % (11.6-14.8) Platelet Count 256 K/UL (150-450) Mean Platelet Volume 8.6 FL (6.5-10.1) Neutrophils (%) (Auto) 78.5 % (45.0-75.0) H Lymphocytes (%) (Auto) 12.4 % (20.0-45.0) L Monocytes (%) (Auto) 7.8 % (1.0-10.0) Eosinophils (%) (Auto) 0.7 % (0.0-3.0) Basophils (%) (Auto) 0.6 % (0.0-2.0) Sodium Level 139 MMOL/L (136-145) Potassium Level 3.6 MMOL/L (3.5-5.1) Chloride Level 105 MMOL/L (98-107) Carbon Dioxide Level 23 MMOL/L (21-32) Anion Gap 11 mmol/L (5-15) Blood Urea Nitrogen 18 mg/dL (7-18) Creatinine 1.9 MG/DL (0.55-1.30) H Estimat Glomerular Filtration Rate 32.0 mL/min (>60) Glucose Level 238 MG/DL (74-106) H Calcium Level 9.0 MG/DL (8.5-10.1) Plan Problems: (1) Cellulitis of left thigh Assessment & Plan: 68F with fever, leukocytosis and left thigh cellulitis. left posterior medial thigh with cellulitis, raised, warm, tender, skin blister , with serous drainage, no fluctuance. blisterectomy at bedside. serous fluid drained. dressings saturated wound still with cellulitis / phlegmon. can note small area of phlegmon at apex of wound that will likely form abscess. still possible to have deeper abscess Pending ultrasound which has not yet been done. with patients consent a 23g needle was used to attempt aspiration at apex and not pus noted. skin protectant, non adherent dressing daily. will monitor cont abx possible I&D if phlegmon forms abscess thank you for this consultation. Rylan Angelo May 16, 2018 12:51
[2018-05-16 15:59] VITALS: BP 126/63
[2018-05-16 20:00] VITALS: BP 133/70
--- NOTE | 2018-05-16 20:11 | Infectious Diseases Prog Note ---
Assessment/Plan Problems: (1) Sepsis Assessment & Plan: with fever , on vancomycin and zosyn empirically with negative blood culture, source suspect left upper thigh skin boil , bladder lesion and urine infection , needs to rule out malignancy of the bladder , with cystoscopy , surgery is following the left upper thigh boil (2) UTI (urinary tract infection) Assessment & Plan: due to proteus mirabilis , already on zosyn (3) Leukocytosis Assessment & Plan: suspect due to UTI , left thigh boil , already on wide spectrum antibiotics , monitor CBC (4) Bladder mass Assessment & Plan: recommend cystoscopy and biopsy , urology is following (5) Cellulitis of left thigh Assessment & Plan: with boil formation and blisters , surgery is following , may need I&D if formed abscess Subjective Constitutional: Reports: fever HEENT: Reports: no symptoms Respiratory: Reports: no symptoms Breasts: Reports: no symptoms Cardiovascular: Reports: no symptoms Gastrointestinal/Abdominal: Reports: no symptoms Genitourinary: Reports: dysuria, hematuria Neurologic: Reports: no symptoms Psychiatric: Reports: no symptoms Skin: Reports: other - left upper thigh skin boil with blisters Endocrine: Reports: no symptoms Hematologic: Reports: no symptoms Musculoskeletal: Reports: no symptoms Allergies: Coded Allergies: ASPIRIN (Verified Allergy, Unknown, 09/26/16) METFORMIN (Verified Allergy, Unknown, 09/26/16) Objective Vital Signs Last 24 Hour Vital Signs Date Time Temp Pulse Resp B/P (MAP) Pulse Ox O2 Delivery O2 Flow Rate FiO2 05/16/18 18:24 97.5 97.5 05/16/18 16:54 102.2 05/16/18 15:59 102.2 93 18 126/63 (84) 96 102.2 05/16/18 15:55 102.2 05/16/18 12:00 100.0 96 18 150/66 (94) 96 100.0 05/16/18 09:00 Room Air 05/16/18 08:00 98.6 91 20 136/71 (92) 99 98.6 05/16/18 05:14 100.1 05/16/18 04:00 100.2 86 16 126/70 (88) 96 100.2 05/16/18 00:00 100.5 96 18 125/84 (98) 96 100.5 05/15/18 21:00 Room Air Height (Feet): 5 Height (Inches): 6.00 Weight (Pounds): 193 General Appearance: WD/WN, no acute distress HEENT: normocephalic, atraumatic, anicteric, mucous membranes moist, PERRL Respiratory/Chest: chest wall non-tender, lungs clear, normal breath sounds, no respiratory distress, no accessory muscle use Cardiovascular: normal peripheral pulses, normal rate, regular rhythm, no gallop/murmur, no JVD Abdomen: normal bowel sounds, soft, non tender, no organomegaly, non distended , no mass, no scars Genitourinary: normal external genitalia Extremities: no cyanosis, no clubbing, other - left upper thigh skin boil with blisters Skin: other - left upper thigh swelling and tenderness with blisters Neurologic/Psychiatric: alert, oriented x 3 Laboratory Tests Test 05/16/18 07:32 White Blood Count 14.6 K/UL (4.8-10.8) H Red Blood Count 3.57 M/UL (4.20-5.40) L Hemoglobin 10.5 G/DL (12.0-16.0) L Hematocrit 31.7 % (37.0-47.0) L Mean Corpuscular Volume 89 FL (80-99) Mean Corpuscular Hemoglobin 29.5 PG (27.0-31.0) Mean Corpuscular Hemoglobin Concent 33.3 G/DL (32.0-36.0) Red Cell Distribution Width 12.9 % (11.6-14.8) Platelet Count 256 K/UL (150-450) Mean Platelet Volume 8.6 FL (6.5-10.1) Neutrophils (%) (Auto) 78.5 % (45.0-75.0) H Lymphocytes (%) (Auto) 12.4 % (20.0-45.0) L Monocytes (%) (Auto) 7.8 % (1.0-10.0) Eosinophils (%) (Auto) 0.7 % (0.0-3.0) Basophils (%) (Auto) 0.6 % (0.0-2.0) Sodium Level 139 MMOL/L (136-145) Potassium Level 3.6 MMOL/L (3.5-5.1) Chloride Level 105 MMOL/L (98-107) Carbon Dioxide Level 23 MMOL/L (21-32) Anion Gap 11 mmol/L (5-15) Blood Urea Nitrogen 18 mg/dL (7-18) Creatinine 1.9 MG/DL (0.55-1.30) H Estimat Glomerular Filtration Rate 32.0 mL/min (>60) Glucose Level 238 MG/DL (74-106) H Calcium Level 9.0 MG/DL (8.5-10.1) Current Medications Medications (Trade) Dose Ordered Sig/Jhon Route PRN Reason Start Time Stop Time Status Last Admin Dose Admin Acetaminophen (Tylenol) 650 mg Q4H PRN ORAL Mild Pain (Pain Scale 1-3) 05/12/18 16:45 06/11/18 16:44 05/16/18 15:55 Atorvastatin Calcium (Lipitor) 80 mg QHS ORAL 05/12/18 21:00 06/11/18 20:59 05/15/18 20:12 Dextrose (Dextrose 50%) 25 ml STAT PRN IV Hypoglycemia 05/12/18 16:45 06/11/18 16:44 Dextrose (Dextrose 50%) 50 ml STAT PRN IV Hypoglycemia 05/12/18 16:45 06/11/18 16:44 Diphenhydramine HCl (Benadryl) 25 mg Q6H PRN ORAL Itching/Pruritis 05/12/18 16:45 06/11/18 16:44 Docusate Sodium (Colace) 100 mg EVERY 12 HOURS ORAL 05/12/18 21:00 06/11/18 20:59 05/15/18 08:44 Heparin Sodium (Porcine) (Heparin 5000 units/ml) 5,000 units EVERY 8 HOURS SUBQ 05/12/18 22:00 06/11/18 21:59 05/16/18 14:59 Insulin Aspart (NovoLOG) BEFORE MEALS AND HS SUBQ 05/12/18 21:00 06/11/18 20:59 05/16/18 16:54 Insulin Detemir (Levemir) 15 units BEDTIME SUBQ 05/15/18 21:00 06/12/18 20:59 05/15/18 20:37 Ondansetron HCl (Zofran) 4 mg Q6H PRN IVP Nausea & Vomiting 05/12/18 16:45 06/11/18 16:44 05/13/18 17:37 Piperacillin Sod/ Tazobactam Sod 3.375 gm/Sodium Chloride 110 ml @ 27.5 mls/hr Q8H IVPB 05/13/18 18:00 05/20/18 17:59 05/16/18 18:17 Sodium Chloride 1,000 ml @ 75 mls/hr [id number] IVLG 05/12/18 19:00 06/11/18 18:59 05/16/18 16:52 Vancomycin HCl (Vanco rx to dose) 1 ea DAILY PRN MISC Per rx protocol 05/13/18 06:30 06/12/18 06:29 Vancomycin HCl/ Dextrose 250 ml @ 166.667 mls/hr Q24H IVPB 05/15/18 09:00 05/20/18 08:59 05/16/18 10:07 Alexis Bernard M.D. May 16, 2018 20:11
[2018-05-16] MEDS: Atorvastatin 80mg tab ORAL SCH (21:02)
[2018-05-16] MEDS: Levemir Flexpen SUBQ SCH (21:06)
[2018-05-17] VITALS: BP 143/66
[2018-05-17] MEDS: Piperacillin/Tazobactam 3.375 GM in NS 110 ML IVPB SCH ×2 (03:45→09:14)
[2018-05-17 04:00] VITALS: BP 136/53
[2018-05-17] MEDS: Heparin 5000 units/ml inj SUBQ SCH ×3 (05:41→21:15)
[2018-05-17] MEDS: NovoLOG Insulin Flexpen SUBQ SCH ×4 (05:41→21:13)
[2018-05-17 07:18] LABS: BASOPHILS % (AUTO) 0.4 % (0.0-2.0); EOSINOPHILS % (AUTO) 0.9 % (0.0-3.0); HEMATOCRIT 29.2 % (37.0-47.0); HEMOGLOBIN 9.9 G/DL (12.0-16.0); LYMPHOCYTES % (AUTO) 13.1 % (20.0-45.0); MEAN CORPUSCULAR VOLUME 89 FL (80-99); MONOCYTES % (AUTO) 8.8 % (1.0-10.0); NEUTROPHILS % (AUTO) 76.8 % (45.0-75.0); PLATELET COUNT 263 K/UL (150-450); RED CELL DISTRIBUTION WIDTH 12.8 % (11.6-14.8); WHITE BLOOD COUNT 14.5 K/UL (4.8-10.8)
[2018-05-17 07:52] LABS: ANION GAP 9 mmol/L (5-15); CALCIUM 8.7 MG/DL (8.5-10.1); CARBON DIOXIDE 23 MMOL/L (21-32); CHLORIDE 107 MMOL/L (98-107); CREATININE 1.8 MG/DL (0.55-1.30); POTASSIUM 3.3 MMOL/L (3.5-5.1); SODIUM 138 MMOL/L (136-145)
[2018-05-17 07:58] LABS: BLOOD UREA NITROGEN 18 mg/dL (7-18)
[2018-05-17 08:00] VITALS: BP 134/64
--- NOTE | 2018-05-17 08:37 | Nephrology Progress Note ---
Assessment/Plan Assessment/Plan 1. LE Weakness- previous CVA. Much improved - decompensation from underlying UTI, - doing well with PT 2. UTI/Buttuck Boil/blister- Abx per ID and I&D per Gen surg - MRI today 3. DM- on ISS + lantus 4. MATEO- Cr down to 1.8. . Continue Abx and IVFs. 5. DVT prphylaxsis with heparin 6. Bladder Lesion- CT Urogram. Cysto to eval bladder mass per Urology 7. Hypokalemia- replace today Subjective Date patient seen: May 17, 2018 Time patient seen: 08:35 ROS Limited/Unobtainable: No Allergies: Coded Allergies: ASPIRIN (Verified Allergy, Unknown, 09/26/16) METFORMIN (Verified Allergy, Unknown, 09/26/16) Subjective Patient today feeling better. Eating well Objective Last 24 Hour Vital Signs Date Time Temp Pulse Resp B/P (MAP) Pulse Ox O2 Delivery O2 Flow Rate FiO2 05/17/18 04:00 99.7 85 17 136/53 (80) 96 99.7 05/17/18 00:00 99.3 78 18 143/66 (91) 97 99.3 05/16/18 21:00 Room Air 05/16/18 20:00 99.8 62 19 133/70 (91) 97 99.8 05/16/18 18:24 97.5 97.5 05/16/18 16:54 102.2 05/16/18 15:59 102.2 93 18 126/63 (84) 96 102.2 05/16/18 15:55 102.2 05/16/18 12:00 100.0 96 18 150/66 (94) 96 100.0 05/16/18 09:00 Room Air Intake and Output 05/16/18 05/17/18 19:00 07:00 Intake Total 1340.0 ml 1380 ml Output Total 250 ml Balance 1090.0 ml 1380 ml Intake Oral 480 ml 480 ml IV Total 860.0 ml 900 ml Output Urine Total 250 ml # Voids 2 3 # Bowel Movements 4 1 Laboratory Tests 05/17/18 04:50: White Blood Count 14.5H, Red Blood Count 3.30L, Hemoglobin 9.9L, Hematocrit 29.2L, Mean Corpuscular Volume 89, Mean Corpuscular Hemoglobin 30.1, Mean Corpuscular Hemoglobin Concent 34.1, Red Cell Distribution Width 12.8, Platelet Count 263, Mean Platelet Volume 7.9, Neutrophils (%) (Auto) 76.8H, Lymphocytes ( %) (Auto) 13.1L, Monocytes (%) (Auto) 8.8, Eosinophils (%) (Auto) 0.9, Basophils (%) (Auto) 0.4, Sodium Level 138, Potassium Level 3.3L, Chloride Level 107, Carbon Dioxide Level 23, Anion Gap 9, Blood Urea Nitrogen 18, Creatinine 1.8H, Estimat Glomerular Filtration Rate 34.1, Glucose Level 146H, Calcium Level 8.7 05/17/18 08:15: Vancomycin Level Trough [Pending] Height (Feet): 5 Height (Inches): 6.00 Weight (Pounds): 193 General Appearance: WD/WN, no apparent distress EENT: PERRL/EOMI Neck: non-tender, normal alignment Cardiovascular: normal peripheral pulses, normal rate Respiratory/Chest: chest wall non-tender, lungs clear Abdomen: non tender, soft Edema: no edema noted Arm (L), no edema noted Arm (R), no edema noted Leg (L), no edema noted Leg (R), no edema noted Pedal (L), no edema noted Pedal (R), no edema noted Generalized Travis Yoon M.D. May 17, 2018 08:37
[2018-05-17] MEDS: Docusate 100mg cap ORAL SCH ×2 (09:00→21:00)
[2018-05-17] MEDS: Vancomycin 1250mg/D5W 250ml IVPB SCH ×2 (09:14→12:59)
--- NOTE | 2018-05-17 09:25 | Neurology Progress Note ---
Interim History Interim History Interim History Ms. Gupta feels very well. She is in bed now. She was up in a chair earlier. The mind is clear. She feels stronger. She is able to stand and walk better. She still has numbness in both her legs. The pain in her legs has resolved. The strength in the legs is much better. She denies any new neurologic symptoms. She has a painful left thigh boil. Review of Systems Neuro Review of Systems Benign. Objective Physical Exam Last Vital Signs Date Time Temp Pulse Resp B/P (MAP) Pulse Ox O2 Delivery O2 Flow Rate FiO2 05/17/18 08:00 98.8 82 20 134/64 (87) 97 98.8 05/16/18 21:00 Room Air 05/13/18 09:00 2.0 Laboratory Tests Test 05/17/18 04:50 05/17/18 08:15 White Blood Count 14.5 K/UL (4.8-10.8) H Red Blood Count 3.30 M/UL (4.20-5.40) L Hemoglobin 9.9 G/DL (12.0-16.0) L Hematocrit 29.2 % (37.0-47.0) L Mean Corpuscular Volume 89 FL (80-99) Mean Corpuscular Hemoglobin 30.1 PG (27.0-31.0) Mean Corpuscular Hemoglobin Concent 34.1 G/DL (32.0-36.0) Red Cell Distribution Width 12.8 % (11.6-14.8) Platelet Count 263 K/UL (150-450) Mean Platelet Volume 7.9 FL (6.5-10.1) Neutrophils (%) (Auto) 76.8 % (45.0-75.0) H Lymphocytes (%) (Auto) 13.1 % (20.0-45.0) L Monocytes (%) (Auto) 8.8 % (1.0-10.0) Eosinophils (%) (Auto) 0.9 % (0.0-3.0) Basophils (%) (Auto) 0.4 % (0.0-2.0) Sodium Level 138 MMOL/L (136-145) Potassium Level 3.3 MMOL/L (3.5-5.1) L Chloride Level 107 MMOL/L (98-107) Carbon Dioxide Level 23 MMOL/L (21-32) Anion Gap 9 mmol/L (5-15) Blood Urea Nitrogen 18 mg/dL (7-18) Creatinine 1.8 MG/DL (0.55-1.30) H Estimat Glomerular Filtration Rate 34.1 mL/min (>60) Glucose Level 146 MG/DL (74-106) H Calcium Level 8.7 MG/DL (8.5-10.1) Vancomycin Level Trough Pending Neurologic Exam Objective PHYSICAL EXAMINATION: GENERAL: She is a well-developed, well-nourished, slightly obese black lady, lying in bed, in no acute distress. HEAD: Normocephalic and atraumatic. EENT: Examination benign. NECK: No neck rigidity was observed. NEUROLOGICAL EXAMINATION: MENTAL STATUS EXAMINATION: She was awake and alert. She was oriented to person, place, and time. She was able to recall 3/3 words immediately, and in 1 minute and 3 minutes. She was able to remember presidents, Trump through [employer]. Her mathematical skills were impaired. Her visuospatial function was also impaired. SPEECH: She had a mild dysarthria, but it should be noted that she was edentulous. LANGUAGE: She had an anomia for low-frequency words, however, it is unclear as to what her educational level is. CRANIAL NERVE EXAMINATION: II: The visual kim were intact on confrontation testing. III, IV & : The external ocular movements were full and the pupils 3 mm in diameter, equal, round, regular, and reactive to light. V: She had normal facial sensations, and the temporales, masseters, and pterygoids functioned normally. VII: She had normal facial expressions and no facial asymmetry. VIII: She was able to hear well bilaterally and had no nystagmus. IX: The palate moved symmetrically on phonation. X: She had no hoarseness of voice. XI: The sternocleidomastoids and trapezii functioned normally. XII: The tongue was in midline without any fasciculations or atrophy. MOTOR SYSTEM: The tone was normal in all four extremities. Examination of muscle mass revealed no focal wasting. Examination of power revealed G 5/5 power in all muscle groups. SENSORY EXAMINATION: She had intact sensations to pinprick, light touch, and graphesthesia, but she complained of altered sensations in the right leg more than the left leg. REFLEXES: 0 at the biceps, triceps, brachioradialis, knees, and ankles. The plantar responses were flexor bilaterally. COORDINATION: She performed well on [id number] and [id number] testing. STANCE & GAIT: Deferred. Impression/Recommendations Diagnostic Impression 1. Ms. Tammy Gupta is a 68-year-old, right-handed, black lady, with a past history of hypertension and diabetes mellitus, who got out of bed on the morning of 05/12/18 and her legs collapsed. Following that she was unable to walk because of pain, numbness, and weakness in both her lower extremities. She also had some low back pain. 2. She feels very well. She is in bed now, but was up in a chair earlier. The mind is clear. She feels stronger. She is able to stand and walk much better. She still has numbness in both her legs. The pain in her legs has resolved. The strength in the legs is much better. She denies any new neurologic symptoms. She has a painful left thigh boil. 3. On neurological examination, at this time, she is fully oriented. She has mild problems with memory, visuospatial function, higher cognitive function, and language. The strength in both lower extremities has returned to normal with no give way weakness. Her deep tendon reflexes are globally absent. The plantar responses are flexor. She is able to stand and walk with contact guard. 4. Laboratory data on admission revealed that her WBC count was elevated to 15, 400 with a left-sided shift with 75% neutrophils. The chemistry panel revealed that the BUN was elevated at 35, creatinine was elevated at 2.5, and blood glucose was elevated at 385. Her urinalysis revealed 2+ leukocyte esterase, and 5-10 red blood cells, and 20-30 white blood cells with a moderate amount of bacteria in the urine. 5. Further laboratory tests have revealed that her HbA1C is at 11.8% confirming that her diabetes is not controlled. 6. The CT scan of the brain without contrast is benign for acute pathology, but does reveal some atrophy and deep white matter changes. 7. The MRI of the LS spine done on 05/12/18 revealed: - Chronic degenerative spondylosis at multiple levels largely characterized by facet arthropathy. - Moderate central spinal stenosis L4-5 with moderate to severe bilateral foraminal stenosis. - L5-S1 moderate to severe bilateral foraminal stenosis. - L3-4 mild to moderate bilateral foraminal stenosis. 8. The patient's history, neurological examination, laboratory data, and imaging studies are most compatible with a fall due to her legs giving way and followed by an inability to walk due to pain, numbness, and weakness in both her lower extremities. In addition, she also had a urinary tract infection, and diabetes out of control. 9. Her motor function has improved significantly and she is able to stand and walk well. 10. She has been noted to have a possible bladder mass which is being investigated. 11. She also has a painful left thigh boil. Recommendations 1. Continue present management. 2. Mobilize with the help of physical and occupational therapy. 3. Investigations for bladder mass. 4. Treatment of left thigh boil. 5. Encourage to increase activity. Sahara Zurita M.D., M.S.P.Theodore. SAHARA ZURITA May 17, 2018 09:25
[2018-05-17] MEDS ORDERED: Lidocaine 1% 10mg/ml/Epi 0.005mg/ml 30ml vial INJ SCH (10:30)
[2018-05-17 12:00] VITALS: BP 120/67
--- NOTE | 2018-05-17 15:32 | Diagnostic Imaging Report ---
Indication: Left posterior medial thigh pain, cellulitis, suspected abscess Technique: Grayscale and duplex images of clinically evident abnormality of the posterior medial left thigh Comparison: none Findings: There is generalized edema of the subcutaneous fat. Within the subcutaneous fat of the posterior medial thigh, there is an area of slightly decreased echogenicity with apparent mobile debris and compressibility which measures 2.3 x 2.9 x 1.7 cm in diameter. This demonstrates peripheral hypervascularity. Impression: Findings are consistent with a small 2.3 x 2.9 x 1.7 cm abscess within the area of clinical concern in the posterior medial left thigh.
--- NOTE | 2018-05-17 15:55 | General Surgery Progress Note ---
General Surgery-Progress Note Subjective Additional Comments ultrasound reviewed. Objective Last 24 Hour Vital Signs Date Time Temp Pulse Resp B/P (MAP) Pulse Ox O2 Delivery O2 Flow Rate FiO2 05/17/18 12:00 99.8 76 20 120/67 (84) 97 99.8 05/17/18 09:00 Room Air 05/17/18 08:00 98.8 82 20 134/64 (87) 97 98.8 05/17/18 04:00 99.7 85 17 136/53 (80) 96 99.7 05/17/18 00:00 99.3 78 18 143/66 (91) 97 99.3 05/16/18 21:00 Room Air 05/16/18 20:00 99.8 62 19 133/70 (91) 97 99.8 05/16/18 18:24 97.5 97.5 05/16/18 16:54 102.2 05/16/18 15:59 102.2 93 18 126/63 (84) 96 102.2 05/16/18 15:55 102.2 I&O Intake and Output 05/16/18 05/17/18 19:00 07:00 Intake Total 1340.0 ml 1380 ml Output Total 250 ml Balance 1090.0 ml 1380 ml Intake Oral 480 ml 480 ml IV Total 860.0 ml 900 ml Output Urine Total 250 ml # Voids 2 3 # Bowel Movements 4 1 Dressing: saturated Wound: clean Drains: none Cardiovascular: RSR Respiratory: clear Abdomen: soft, non-tender, present bowel sounds Extremities: edema, tenderness, no cyanosis Laboratory Tests Test 05/17/18 04:50 05/17/18 08:15 White Blood Count 14.5 K/UL (4.8-10.8) H Red Blood Count 3.30 M/UL (4.20-5.40) L Hemoglobin 9.9 G/DL (12.0-16.0) L Hematocrit 29.2 % (37.0-47.0) L Mean Corpuscular Volume 89 FL (80-99) Mean Corpuscular Hemoglobin 30.1 PG (27.0-31.0) Mean Corpuscular Hemoglobin Concent 34.1 G/DL (32.0-36.0) Red Cell Distribution Width 12.8 % (11.6-14.8) Platelet Count 263 K/UL (150-450) Mean Platelet Volume 7.9 FL (6.5-10.1) Neutrophils (%) (Auto) 76.8 % (45.0-75.0) H Lymphocytes (%) (Auto) 13.1 % (20.0-45.0) L Monocytes (%) (Auto) 8.8 % (1.0-10.0) Eosinophils (%) (Auto) 0.9 % (0.0-3.0) Basophils (%) (Auto) 0.4 % (0.0-2.0) Sodium Level 138 MMOL/L (136-145) Potassium Level 3.3 MMOL/L (3.5-5.1) L Chloride Level 107 MMOL/L (98-107) Carbon Dioxide Level 23 MMOL/L (21-32) Anion Gap 9 mmol/L (5-15) Blood Urea Nitrogen 18 mg/dL (7-18) Creatinine 1.8 MG/DL (0.55-1.30) H Estimat Glomerular Filtration Rate 34.1 mL/min (>60) Glucose Level 146 MG/DL (74-106) H Calcium Level 8.7 MG/DL (8.5-10.1) Vancomycin Level Trough 12.6 ug/mL (5.0-12.0) H Plan Problems: (1) Cellulitis of left thigh Assessment & Plan: 68F with fever, leukocytosis and left thigh cellulitis. left posterior medial thigh with cellulitis, raised, warm, tender, skin blister , with serous drainage, no fluctuance. blisterectomy at bedside. serous fluid drained. dressings saturated wound still with cellulitis / phlegmon. can note small area of phlegmon at apex of wound that will likely form abscess. still possible to have deeper abscess US with small abscess. will I&D at bedside today Procedure: consent obtained. patient made comfortable at bedside. 1% lidocaine with epi infiltrated in left thigh wound. #11 scalpel used to make incision. pus drained. cultures sent. wound irrigated. packing and dressings applied. -packing and dressings TID cont Rylan Mitchell May 17, 2018 15:55
[2018-05-17 16:00] VITALS: BP 144/75
--- NOTE | 2018-05-17 16:19 | Infectious Diseases Prog Note ---
Assessment/Plan Problems: (1) Sepsis Assessment & Plan: with fever , on vancomycin and zosyn empirically with negative blood culture, source suspect left upper thigh skin abscess , S/P I&D , needs to rule out malignancy of the bladder , with cystoscopy and biopsy , urology and surgery are following . will switch zosyn to ceftriaxon , and continue vancomycin (2) UTI (urinary tract infection) Assessment & Plan: due to proteus mirabilis , on zosyn will switch to ceftriaxon (3) Leukocytosis Assessment & Plan: suspect due to UTI , left thigh abscess S/P I&D , already on wide spectrum antibiotics , monitor CBC (4) Bladder mass Assessment & Plan: recommend cystoscopy and biopsy , urology is following (5) Cellulitis of left thigh Assessment & Plan: with skin abscess and blisters , S/P I&D surgery is following Subjective Constitutional: Reports: fever HEENT: Reports: no symptoms Respiratory: Reports: no symptoms Breasts: Reports: no symptoms Cardiovascular: Reports: no symptoms Gastrointestinal/Abdominal: Reports: no symptoms Genitourinary: Reports: no symptoms Neurologic: Reports: no symptoms Psychiatric: Reports: no symptoms Skin: Reports: no symptoms Endocrine: Reports: no symptoms Hematologic: Reports: no symptoms Musculoskeletal: Reports: no symptoms Allergies: Coded Allergies: ASPIRIN (Verified Allergy, Unknown, 09/26/16) METFORMIN (Verified Allergy, Unknown, 09/26/16) Objective Vital Signs Last 24 Hour Vital Signs Date Time Temp Pulse Resp B/P (MAP) Pulse Ox O2 Delivery O2 Flow Rate FiO2 05/17/18 12:00 99.8 76 20 120/67 (84) 97 99.8 05/17/18 09:00 Room Air 05/17/18 08:00 98.8 82 20 134/64 (87) 97 98.8 05/17/18 04:00 99.7 85 17 136/53 (80) 96 99.7 05/17/18 00:00 99.3 78 18 143/66 (91) 97 99.3 05/16/18 21:00 Room Air 05/16/18 20:00 99.8 62 19 133/70 (91) 97 99.8 05/16/18 18:24 97.5 97.5 05/16/18 16:54 102.2 Height (Feet): 5 Height (Inches): 6.00 Weight (Pounds): 193 General Appearance: WD/WN, no acute distress HEENT: normocephalic, atraumatic, anicteric, mucous membranes moist Respiratory/Chest: chest wall non-tender, lungs clear, normal breath sounds, no respiratory distress, no accessory muscle use Cardiovascular: normal peripheral pulses, normal rate, regular rhythm, no gallop/murmur, no JVD Abdomen: normal bowel sounds, soft, non tender, no organomegaly, no mass, no scars, distended Extremities: no cyanosis, no clubbing, other - left medial upper thigh abscess Skin: no rash, no lesions, no ulcers Neurologic/Psychiatric: alert, oriented x 3, responsive Lymphatic: no neck adenopathy, no groin adenopathy Musculoskeletal: normal muscle bulk, other - left posterior upper thigh abscess 3 Laboratory Tests Test 05/17/18 04:50 05/17/18 08:15 White Blood Count 14.5 K/UL (4.8-10.8) H Red Blood Count 3.30 M/UL (4.20-5.40) L Hemoglobin 9.9 G/DL (12.0-16.0) L Hematocrit 29.2 % (37.0-47.0) L Mean Corpuscular Volume 89 FL (80-99) Mean Corpuscular Hemoglobin 30.1 PG (27.0-31.0) Mean Corpuscular Hemoglobin Concent 34.1 G/DL (32.0-36.0) Red Cell Distribution Width 12.8 % (11.6-14.8) Platelet Count 263 K/UL (150-450) Mean Platelet Volume 7.9 FL (6.5-10.1) Neutrophils (%) (Auto) 76.8 % (45.0-75.0) H Lymphocytes (%) (Auto) 13.1 % (20.0-45.0) L Monocytes (%) (Auto) 8.8 % (1.0-10.0) Eosinophils (%) (Auto) 0.9 % (0.0-3.0) Basophils (%) (Auto) 0.4 % (0.0-2.0) Sodium Level 138 MMOL/L (136-145) Potassium Level 3.3 MMOL/L (3.5-5.1) L Chloride Level 107 MMOL/L (98-107) Carbon Dioxide Level 23 MMOL/L (21-32) Anion Gap 9 mmol/L (5-15) Blood Urea Nitrogen 18 mg/dL (7-18) Creatinine 1.8 MG/DL (0.55-1.30) H Estimat Glomerular Filtration Rate 34.1 mL/min (>60) Glucose Level 146 MG/DL (74-106) H Calcium Level 8.7 MG/DL (8.5-10.1) Vancomycin Level Trough 12.6 ug/mL (5.0-12.0) H Current Medications Medications (Trade) Dose Ordered Sig/Jhon Route PRN Reason Start Time Stop Time Status Last Admin Dose Admin Acetaminophen (Tylenol) 650 mg Q4H PRN ORAL Mild Pain (Pain Scale 1-3) 05/12/18 16:45 06/11/18 16:44 05/17/18 03:27 Atorvastatin Calcium (Lipitor) 80 mg QHS ORAL 05/12/18 21:00 06/11/18 20:59 05/16/18 21:02 Dextrose (Dextrose 50%) 25 ml STAT PRN IV Hypoglycemia 05/12/18 16:45 06/11/18 16:44 Dextrose (Dextrose 50%) 50 ml STAT PRN IV Hypoglycemia 05/12/18 16:45 06/11/18 16:44 Diphenhydramine HCl (Benadryl) 25 mg Q6H PRN ORAL Itching/Pruritis 05/12/18 16:45 06/11/18 16:44 Docusate Sodium (Colace) 100 mg EVERY 12 HOURS ORAL 05/12/18 21:00 06/11/18 20:59 05/15/18 08:44 Heparin Sodium (Porcine) (Heparin 5000 units/ml) 5,000 units EVERY 8 HOURS SUBQ 05/12/18 22:00 06/11/18 21:59 05/17/18 13:06 Insulin Aspart (NovoLOG) BEFORE MEALS AND HS SUBQ 05/12/18 21:00 06/11/18 20:59 05/17/18 13:00 Insulin Detemir (Levemir) 15 units BEDTIME SUBQ 05/15/18 21:00 06/12/18 20:59 05/16/18 21:06 Ondansetron HCl (Zofran) 4 mg Q6H PRN IVP Nausea & Vomiting 05/12/18 16:45 06/11/18 16:44 05/17/18 09:13 Piperacillin Sod/ Tazobactam Sod 3.375 gm/Sodium Chloride 110 ml @ 27.5 mls/hr Q8H IVPB 05/13/18 18:00 05/20/18 17:59 05/17/18 09:14 Sodium Chloride 1,000 ml @ 75 mls/hr [id number] IVLG 05/12/18 19:00 06/11/18 18:59 05/17/18 05:32 Vancomycin HCl (Vanco rx to dose) 1 ea DAILY PRN MISC Per rx protocol 05/13/18 06:30 06/12/18 06:29 Vancomycin HCl/ Dextrose 250 ml @ 166.667 mls/hr Q24H IVPB 05/15/18 09:00 05/20/18 08:59 05/17/18 12:59 Alexis Bernard M.D. May 17, 2018 16:19
[2018-05-17] MEDS: cefTRIAXone 2 GM in D5W 110 ML IVPB SCH (18:29)
[2018-05-17 20:00] VITALS: BP 138/66
[2018-05-17] MEDS: Atorvastatin 80mg tab ORAL SCH (21:10)
[2018-05-17] MEDS: Levemir Flexpen SUBQ SCH (21:13)
[2018-05-18] VITALS: BP 127/57
[2018-05-18 04:00] VITALS: BP 134/66
[2018-05-18] MEDS: NovoLOG Insulin Flexpen SUBQ SCH ×4 (05:58→21:07)
[2018-05-18] MEDS: Heparin 5000 units/ml inj SUBQ SCH ×3 (06:02→21:06)
[2018-05-18 06:36] LABS: BASOPHILS % (AUTO) 0.8 % (0.0-2.0); EOSINOPHILS % (AUTO) 1.3 % (0.0-3.0); HEMATOCRIT 28.6 % (37.0-47.0); HEMOGLOBIN 9.3 G/DL (12.0-16.0); LYMPHOCYTES % (AUTO) 18.2 % (20.0-45.0); MEAN CORPUSCULAR VOLUME 90 FL (80-99); MONOCYTES % (AUTO) 11.3 % (1.0-10.0); NEUTROPHILS % (AUTO) 68.4 % (45.0-75.0); PLATELET COUNT 275 K/UL (150-450); RED CELL DISTRIBUTION WIDTH 13.4 % (11.6-14.8); WHITE BLOOD COUNT 11.4 K/UL (4.8-10.8)
[2018-05-18 07:05] LABS: ANION GAP 8 mmol/L (5-15); BLOOD UREA NITROGEN 16 mg/dL (7-18); CALCIUM 8.9 MG/DL (8.5-10.1); CARBON DIOXIDE 23 MMOL/L (21-32); CHLORIDE 109 MMOL/L (98-107); CREATININE 1.8 MG/DL (0.55-1.30); POTASSIUM 3.5 MMOL/L (3.5-5.1); SODIUM 140 MMOL/L (136-145)
[2018-05-18 08:00] VITALS: BP 146/69
[2018-05-18] MEDS: Docusate 100mg cap ORAL SCH ×2 (08:41→21:00)
[2018-05-18] MEDS: Vancomycin 1250mg/D5W 250ml IVPB SCH (08:41)
--- NOTE | 2018-05-18 09:12 | Nephrology Progress Note ---
Assessment/Plan Assessment/Plan 1. LE Weakness- previous CVA. Resolved - doing well with PT 2. UTI/Buttuck Boil/Abscess- Abx per ID and I&D per Gen surg 3. DM- on ISS + lantus 4. CKD 3B- Cr stable 1.8. . Continue Abx 5. DVT prphylaxsis with heparin 6. Bladder Lesion- Cysto to eval bladder mass per Urology 7. Hypokalemia- replace prn Subjective Date patient seen: May 18, 2018 Time patient seen: 09:10 ROS Limited/Unobtainable: No Allergies: Coded Allergies: ASPIRIN (Verified Allergy, Unknown, 09/26/16) METFORMIN (Verified Allergy, Unknown, 09/26/16) Subjective Patient feeling better. Eating well but does not like hospital food Objective Last 24 Hour Vital Signs Date Time Temp Pulse Resp B/P (MAP) Pulse Ox O2 Delivery O2 Flow Rate FiO2 05/18/18 08:00 98.1 76 18 146/69 (94) 95 98.1 05/18/18 04:00 97.9 73 18 134/66 (88) 95 97.9 05/18/18 00:00 97.9 73 19 127/57 (80) 97 97.9 05/17/18 21:00 Room Air 05/17/18 20:00 98.6 84 20 138/66 (90) 97 98.6 05/17/18 20:00 98.6 05/17/18 18:30 99.9 05/17/18 16:00 101.1 90 22 144/75 (98) 99 101.1 05/17/18 12:00 99.8 76 20 120/67 (84) 97 99.8 Intake and Output 05/17/18 05/18/18 19:00 07:00 Intake Total 1860 ml 240 ml Balance 1860 ml 240 ml Intake Oral 960 ml 240 ml IV Total 900 ml # Voids 1 2 # Bowel Movements 2 Laboratory Tests 05/18/18 04:50: White Blood Count 11.4H, Red Blood Count 3.20L, Hemoglobin 9.3L, Hematocrit 28.6L, Mean Corpuscular Volume 90, Mean Corpuscular Hemoglobin 29.2, Mean Corpuscular Hemoglobin Concent 32.7, Red Cell Distribution Width 13.4, Platelet Count 275, Mean Platelet Volume 7.9, Neutrophils (%) (Auto) 68.4, Lymphocytes (% ) (Auto) 18.2L, Monocytes (%) (Auto) 11.3H, Eosinophils (%) (Auto) 1.3, Basophils (%) (Auto) 0.8, Sodium Level 140, Potassium Level 3.5, Chloride Level 109H, Carbon Dioxide Level 23, Anion Gap 8, Blood Urea Nitrogen 16, Creatinine 1.8H, Estimat Glomerular Filtration Rate 34.1, Glucose Level 115H, Calcium Level 8.9 Height (Feet): 5 Height (Inches): 6.00 Weight (Pounds): 193 General Appearance: WD/WN, no apparent distress EENT: PERRL/EOMI Neck: non-tender, normal alignment Cardiovascular: normal peripheral pulses, normal rate, regular rhythm Abdomen: normal bowel sounds, non tender, soft Edema: no edema noted Arm (L), no edema noted Arm (R), no edema noted Leg (L), no edema noted Leg (R), no edema noted Pedal (L), no edema noted Pedal (R), no edema noted Generalized Travis Yoon M.D. May 18, 2018 09:12
--- NOTE | 2018-05-18 10:42 | General Surgery Progress Note ---
General Surgery-Progress Note Subjective Additional Comments improving. states she feels much better today. Objective Last 24 Hour Vital Signs Date Time Temp Pulse Resp B/P (MAP) Pulse Ox O2 Delivery O2 Flow Rate FiO2 05/18/18 09:00 Room Air 05/18/18 08:00 98.1 76 18 146/69 (94) 95 98.1 05/18/18 04:00 97.9 73 18 134/66 (88) 95 97.9 05/18/18 00:00 97.9 73 19 127/57 (80) 97 97.9 05/17/18 21:00 Room Air 05/17/18 20:00 98.6 84 20 138/66 (90) 97 98.6 05/17/18 20:00 98.6 05/17/18 18:30 99.9 05/17/18 16:00 101.1 90 22 144/75 (98) 99 101.1 05/17/18 12:00 99.8 76 20 120/67 (84) 97 99.8 I&O Intake and Output 05/17/18 05/18/18 19:00 07:00 Intake Total 1860 ml 240 ml Balance 1860 ml 240 ml Intake Oral 960 ml 240 ml IV Total 900 ml # Voids 1 2 # Bowel Movements 2 Dressing: saturated Wound: clean Drains: none Cardiovascular: RSR Respiratory: clear Abdomen: soft Extremities: no tenderness Laboratory Tests Test 05/18/18 04:50 White Blood Count 11.4 K/UL (4.8-10.8) H Red Blood Count 3.20 M/UL (4.20-5.40) L Hemoglobin 9.3 G/DL (12.0-16.0) L Hematocrit 28.6 % (37.0-47.0) L Mean Corpuscular Volume 90 FL (80-99) Mean Corpuscular Hemoglobin 29.2 PG (27.0-31.0) Mean Corpuscular Hemoglobin Concent 32.7 G/DL (32.0-36.0) Red Cell Distribution Width 13.4 % (11.6-14.8) Platelet Count 275 K/UL (150-450) Mean Platelet Volume 7.9 FL (6.5-10.1) Neutrophils (%) (Auto) 68.4 % (45.0-75.0) Lymphocytes (%) (Auto) 18.2 % (20.0-45.0) L Monocytes (%) (Auto) 11.3 % (1.0-10.0) H Eosinophils (%) (Auto) 1.3 % (0.0-3.0) Basophils (%) (Auto) 0.8 % (0.0-2.0) Sodium Level 140 MMOL/L (136-145) Potassium Level 3.5 MMOL/L (3.5-5.1) Chloride Level 109 MMOL/L (98-107) H Carbon Dioxide Level 23 MMOL/L (21-32) Anion Gap 8 mmol/L (5-15) Blood Urea Nitrogen 16 mg/dL (7-18) Creatinine 1.8 MG/DL (0.55-1.30) H Estimat Glomerular Filtration Rate 34.1 mL/min (>60) Glucose Level 115 MG/DL (74-106) H Calcium Level 8.9 MG/DL (8.5-10.1) Plan Problems: (1) Cellulitis of left thigh Assessment & Plan: 68F with fever, leukocytosis and left thigh cellulitis. left posterior medial thigh with cellulitis, raised, warm, tender, skin blister , with serous drainage, no fluctuance. blisterectomy at bedside. serous fluid drained. dressings saturated wound still with cellulitis / phlegmon. can note small area of phlegmon at apex of wound that will likely form abscess. still possible to have deeper abscess US with small abscess. s/p I&D of left thigh abscess. recovering. improving -packing and dressings TID -cont Rylan Mitchell May 18, 2018 10:42
[2018-05-18 12:00] VITALS: BP 155/78
--- NOTE | 2018-05-18 14:56 | Infectious Diseases Prog Note ---
Assessment/Plan Problems: (1) Sepsis Assessment & Plan: with fever , on vancomycin and zosyn empirically with negative blood culture, source suspect left upper thigh skin abscess , S/P I&D , needs to rule out malignancy of the bladder , with cystoscopy and biopsy , urology and surgery are following . will switch zosyn to ceftriaxon , and continue vancomycin (2) UTI (urinary tract infection) Assessment & Plan: due to proteus mirabilis , on zosyn will switch to ceftriaxon (3) Leukocytosis Assessment & Plan: suspect due to UTI , left thigh abscess S/P I&D , already on wide spectrum antibiotics , monitor CBC (4) Bladder mass Assessment & Plan: recommend cystoscopy and biopsy , urology is following (5) Cellulitis of left thigh Assessment & Plan: with skin abscess and blisters , S/P I&D surgery is following Subjective Constitutional: Reports: no symptoms HEENT: Reports: no symptoms Respiratory: Reports: no symptoms Breasts: Reports: no symptoms Cardiovascular: Reports: no symptoms Gastrointestinal/Abdominal: Reports: no symptoms Genitourinary: Reports: no symptoms Neurologic: Reports: no symptoms Psychiatric: Reports: no symptoms Skin: Reports: no symptoms Endocrine: Reports: no symptoms Hematologic: Reports: no symptoms Musculoskeletal: Reports: no symptoms Allergies: Coded Allergies: ASPIRIN (Verified Allergy, Unknown, 09/26/16) METFORMIN (Verified Allergy, Unknown, 09/26/16) Objective Vital Signs Last 24 Hour Vital Signs Date Time Temp Pulse Resp B/P (MAP) Pulse Ox O2 Delivery O2 Flow Rate FiO2 05/18/18 12:00 98.6 72 18 155/78 (103) 96 98.6 05/18/18 09:00 Room Air 05/18/18 08:00 98.1 76 18 146/69 (94) 95 98.1 05/18/18 04:00 97.9 73 18 134/66 (88) 95 97.9 05/18/18 00:00 97.9 73 19 127/57 (80) 97 97.9 05/17/18 21:00 Room Air 05/17/18 20:00 98.6 84 20 138/66 (90) 97 98.6 05/17/18 20:00 98.6 05/17/18 18:30 99.9 05/17/18 16:00 101.1 90 22 144/75 (98) 99 101.1 Height (Feet): 5 Height (Inches): 6.00 Weight (Pounds): 193 General Appearance: WD/WN, no acute distress HEENT: normocephalic, atraumatic, anicteric, mucous membranes moist, PERRL Respiratory/Chest: chest wall non-tender, lungs clear, normal breath sounds, no respiratory distress, no accessory muscle use Cardiovascular: normal peripheral pulses, normal rate, regular rhythm, no gallop/murmur, no JVD Abdomen: normal bowel sounds, soft, non tender, no organomegaly, non distended , no mass, no scars Extremities: no cyanosis, no clubbing Skin: no rash, no lesions, other - left upper thigh skin abscess S/P I&D Neurologic/Psychiatric: alert, oriented x 3, responsive Lymphatic: no neck adenopathy, no groin adenopathy Microbiology Date/Time Source Procedure Growth Status 05/17/18 12:40 Thigh Left Gram Stain - Final Resulted 05/17/18 12:40 Thigh Left Wound Culture - Preliminary Resulted Laboratory Tests Test 05/18/18 04:50 White Blood Count 11.4 K/UL (4.8-10.8) H Red Blood Count 3.20 M/UL (4.20-5.40) L Hemoglobin 9.3 G/DL (12.0-16.0) L Hematocrit 28.6 % (37.0-47.0) L Mean Corpuscular Volume 90 FL (80-99) Mean Corpuscular Hemoglobin 29.2 PG (27.0-31.0) Mean Corpuscular Hemoglobin Concent 32.7 G/DL (32.0-36.0) Red Cell Distribution Width 13.4 % (11.6-14.8) Platelet Count 275 K/UL (150-450) Mean Platelet Volume 7.9 FL (6.5-10.1) Neutrophils (%) (Auto) 68.4 % (45.0-75.0) Lymphocytes (%) (Auto) 18.2 % (20.0-45.0) L Monocytes (%) (Auto) 11.3 % (1.0-10.0) H Eosinophils (%) (Auto) 1.3 % (0.0-3.0) Basophils (%) (Auto) 0.8 % (0.0-2.0) Sodium Level 140 MMOL/L (136-145) Potassium Level 3.5 MMOL/L (3.5-5.1) Chloride Level 109 MMOL/L (98-107) H Carbon Dioxide Level 23 MMOL/L (21-32) Anion Gap 8 mmol/L (5-15) Blood Urea Nitrogen 16 mg/dL (7-18) Creatinine 1.8 MG/DL (0.55-1.30) H Estimat Glomerular Filtration Rate 34.1 mL/min (>60) Glucose Level 115 MG/DL (74-106) H Calcium Level 8.9 MG/DL (8.5-10.1) Current Medications Medications (Trade) Dose Ordered Sig/Jhon Route PRN Reason Start Time Stop Time Status Last Admin Dose Admin Acetaminophen (Tylenol) 650 mg Q4H PRN ORAL Mild Pain (Pain Scale 1-3) 05/12/18 16:45 06/11/18 16:44 05/18/18 02:35 Atorvastatin Calcium (Lipitor) 80 mg QHS ORAL 05/12/18 21:00 06/11/18 20:59 05/17/18 21:10 Ceftriaxone Sodium 2 gm/ Dextrose 110 ml @ 220 mls/hr Q24H IVPB 05/17/18 18:00 05/24/18 17:59 05/17/18 18:29 Dextrose (Dextrose 50%) 25 ml STAT PRN IV Hypoglycemia 05/12/18 16:45 06/11/18 16:44 Dextrose (Dextrose 50%) 50 ml STAT PRN IV Hypoglycemia 05/12/18 16:45 06/11/18 16:44 Diphenhydramine HCl (Benadryl) 25 mg Q6H PRN ORAL Itching/Pruritis 05/12/18 16:45 06/11/18 16:44 Docusate Sodium (Colace) 100 mg EVERY 12 HOURS ORAL 05/12/18 21:00 06/11/18 20:59 05/15/18 08:44 Heparin Sodium (Porcine) (Heparin 5000 units/ml) 5,000 units EVERY 8 HOURS SUBQ 05/12/18 22:00 06/11/18 21:59 05/18/18 14:42 Insulin Aspart (NovoLOG) BEFORE MEALS AND HS SUBQ 05/12/18 21:00 06/11/18 20:59 05/18/18 12:22 Insulin Detemir (Levemir) 15 units BEDTIME SUBQ 05/15/18 21:00 06/12/18 20:59 05/17/18 21:13 Ondansetron HCl (Zofran) 4 mg Q6H PRN IVP Nausea & Vomiting 05/12/18 16:45 06/11/18 16:44 05/17/18 09:13 Vancomycin HCl (Vanco rx to dose) 1 ea DAILY PRN MISC Per rx protocol 05/13/18 06:30 06/12/18 06:29 Vancomycin HCl/ Dextrose 250 ml @ 166.667 mls/hr Q24H IVPB 05/15/18 09:00 05/20/18 08:59 05/18/18 08:41 Alexis Bernard M.D. May 18, 2018 14:56
[2018-05-18 16:00] VITALS: BP 155/77
[2018-05-18] MEDS: cefTRIAXone 2 GM in D5W 110 ML IVPB SCH (17:15)
--- NOTE | 2018-05-18 17:49 | Neurology Progress Note ---
Interim History Interim History Interim History Ms. Gupta feels very well. She is in bed now. She was up in a chair earlier. She took a nice walk with her PT who told her she needs to use a walker. The mind is clear. She feels stronger. She is able to stand and walk better. She still has numbness in both her legs. The pain in her legs has resolved. The strength in the legs is much better. She denies any new neurologic symptoms. The left thigh boil is less painful. Review of Systems Neuro Review of Systems Ms. Gupta feels very well. Benign. Objective Physical Exam Last Vital Signs Date Time Temp Pulse Resp B/P (MAP) Pulse Ox O2 Delivery O2 Flow Rate FiO2 05/18/18 16:00 98.9 78 20 155/77 (103) 99 98.9 05/18/18 09:00 Room Air 05/13/18 09:00 2.0 Laboratory Tests Test 05/18/18 04:50 White Blood Count 11.4 K/UL (4.8-10.8) H Red Blood Count 3.20 M/UL (4.20-5.40) L Hemoglobin 9.3 G/DL (12.0-16.0) L Hematocrit 28.6 % (37.0-47.0) L Mean Corpuscular Volume 90 FL (80-99) Mean Corpuscular Hemoglobin 29.2 PG (27.0-31.0) Mean Corpuscular Hemoglobin Concent 32.7 G/DL (32.0-36.0) Red Cell Distribution Width 13.4 % (11.6-14.8) Platelet Count 275 K/UL (150-450) Mean Platelet Volume 7.9 FL (6.5-10.1) Neutrophils (%) (Auto) 68.4 % (45.0-75.0) Lymphocytes (%) (Auto) 18.2 % (20.0-45.0) L Monocytes (%) (Auto) 11.3 % (1.0-10.0) H Eosinophils (%) (Auto) 1.3 % (0.0-3.0) Basophils (%) (Auto) 0.8 % (0.0-2.0) Sodium Level 140 MMOL/L (136-145) Potassium Level 3.5 MMOL/L (3.5-5.1) Chloride Level 109 MMOL/L (98-107) H Carbon Dioxide Level 23 MMOL/L (21-32) Anion Gap 8 mmol/L (5-15) Blood Urea Nitrogen 16 mg/dL (7-18) Creatinine 1.8 MG/DL (0.55-1.30) H Estimat Glomerular Filtration Rate 34.1 mL/min (>60) Glucose Level 115 MG/DL (74-106) H Calcium Level 8.9 MG/DL (8.5-10.1) Neurologic Exam Objective PHYSICAL EXAMINATION: GENERAL: She is a well-developed, well-nourished, slightly obese black lady, lying in bed, in no acute distress. HEAD: Normocephalic and atraumatic. EENT: Examination benign. NECK: No neck rigidity was observed. NEUROLOGICAL EXAMINATION: MENTAL STATUS EXAMINATION: She was awake and alert. She was oriented to person, place, and time. She was able to recall 3/3 words immediately, and in 1 minute and 3 minutes. She was able to remember presidents, Trump through [employer]. Her mathematical skills were impaired. Her visuospatial function was also impaired. SPEECH: She had a mild dysarthria, but it should be noted that she was edentulous. LANGUAGE: She had an anomia for low-frequency words, however, it is unclear as to what her educational level is. CRANIAL NERVE EXAMINATION: II: The visual kim were intact on confrontation testing. III, IV & : The external ocular movements were full and the pupils 3 mm in diameter, equal, round, regular, and reactive to light. V: She had normal facial sensations, and the temporales, masseters, and pterygoids functioned normally. VII: She had normal facial expressions and no facial asymmetry. VIII: She was able to hear well bilaterally and had no nystagmus. IX: The palate moved symmetrically on phonation. X: She had no hoarseness of voice. XI: The sternocleidomastoids and trapezii functioned normally. XII: The tongue was in midline without any fasciculations or atrophy. MOTOR SYSTEM: The tone was normal in all four extremities. Examination of muscle mass revealed no focal wasting. Examination of power revealed G 5/5 power in all muscle groups. SENSORY EXAMINATION: She had intact sensations to pinprick, light touch, and graphesthesia, but she complained of altered sensations in the right leg more than the left leg. REFLEXES: 0 at the biceps, triceps, brachioradialis, knees, and ankles. The plantar responses were flexor bilaterally. COORDINATION: She performed well on [id number] and [id number] testing. STANCE: She stood up with support on one side. GAIT: She walked well with support on one side. Impression/Recommendations Diagnostic Impression 1. Ms. Tammy Gupta is a 68-year-old, right-handed, black lady, with a past history of hypertension and diabetes mellitus, who got out of bed on the morning of 05/12/18 and her legs collapsed. Following that she was unable to walk because of pain, numbness, and weakness in both her lower extremities. She also had some low back pain. 2. She feels very well. She is in bed now. She was up in a chair earlier. She took a nice walk with her PT who told her she needs to use a walker. The mind is clear. She feels stronger. She is able to stand and walk better. She still has numbness in both her legs. The pain in her legs has resolved. The strength in the legs is much better. She denies any new neurologic symptoms. The left thigh boil is less painful. 3. On neurological examination, at this time, she is fully oriented. She has mild problems with memory, visuospatial function, higher cognitive function, and language. The strength in both lower extremities has returned to normal with no give way weakness. Her deep tendon reflexes are globally absent. The plantar responses are flexor. She is able to stand and walk with contact guard. 4. Laboratory data on admission revealed that her WBC count was elevated to 15, 400 with a left-sided shift with 75% neutrophils. The chemistry panel revealed that the BUN was elevated at 35, creatinine was elevated at 2.5, and blood glucose was elevated at 385. Her urinalysis revealed 2+ leukocyte esterase, and 5-10 red blood cells, and 20-30 white blood cells with a moderate amount of bacteria in the urine. 5. Further laboratory tests have revealed that her HbA1C is at 11.8% confirming that her diabetes is not controlled. 6. The CT scan of the brain without contrast is benign for acute pathology, but does reveal some atrophy and deep white matter changes. 7. The MRI of the LS spine done on 05/12/18 revealed: - Chronic degenerative spondylosis at multiple levels largely characterized by facet arthropathy. - Moderate central spinal stenosis L4-5 with moderate to severe bilateral foraminal stenosis. - L5-S1 moderate to severe bilateral foraminal stenosis. - L3-4 mild to moderate bilateral foraminal stenosis. 8. The patient's history, neurological examination, laboratory data, and imaging studies are most compatible with a fall due to her legs giving way and followed by an inability to walk due to pain, numbness, and weakness in both her lower extremities. In addition, she also had a urinary tract infection, and diabetes out of control. 9. Her motor function has improved significantly and she is able to stand and walk well. 10. She has been noted to have a possible bladder mass which is being investigated. 11. The left thigh boil is less painful. Recommendations 1. Continue present management. 2. Mobilize with the help of physical and occupational therapy. 3. Investigations for bladder mass. 4. Treatment of left thigh boil. 5. Encourage to increase activity. Sahara Bunn M.D., M.S.P.SAHARA MAYNARD May 18, 2018 17:49
[2018-05-18 20:20] VITALS: BP 158/82
[2018-05-18] MEDS: Atorvastatin 80mg tab ORAL SCH (21:03)
[2018-05-18] MEDS: Levemir Flexpen SUBQ SCH (21:06)
[2018-05-19 03:57] VITALS: BP 114/79
[2018-05-19] MEDS: NovoLOG Insulin Flexpen SUBQ SCH ×4 (06:04→21:12)
[2018-05-19] MEDS: Heparin 5000 units/ml inj SUBQ SCH ×3 (06:05→21:14)
[2018-05-19 07:46] LABS: ANION GAP 10 mmol/L (5-15); BLOOD UREA NITROGEN 15 mg/dL (7-18); CALCIUM 8.8 MG/DL (8.5-10.1); CARBON DIOXIDE 21 MMOL/L (21-32); CHLORIDE 109 MMOL/L (98-107); CREATININE 1.5 MG/DL (0.55-1.30); POTASSIUM 4.2 MMOL/L (3.5-5.1); SODIUM 140 MMOL/L (136-145)
[2018-05-19 08:00] VITALS: BP 179/77
[2018-05-19] MEDS: Docusate 100mg cap ORAL SCH ×2 (09:00→21:00)
--- NOTE | 2018-05-19 09:18 | Nephrology Progress Note ---
Assessment/Plan Assessment/Plan 1. LE Weakness- previous CVA. Resolved - doing well with PT - DC to Rehab once cleared by Urology 2. UTI/Buttuck Boil/Abscess- Abx per ID , s/p I&D per Gen surg 3. DM- on ISS + lantus 4. CKD 3B- Cr down to 1.5. . Continue Abx 5. DVT prphylaxsis with heparin 6. Bladder Lesion- Cysto to eval bladder mass per Urology 7. Hypokalemia- replace prn Subjective Date patient seen: May 19, 2018 Time patient seen: 09:13 ROS Limited/Unobtainable: No Allergies: Coded Allergies: ASPIRIN (Verified Allergy, Unknown, 09/26/16) METFORMIN (Verified Allergy, Unknown, 09/26/16) All Systems: reviewed and negative except above Subjective Patient feeling better. No CP or SOB Objective Last 24 Hour Vital Signs Date Time Temp Pulse Resp B/P (MAP) Pulse Ox O2 Delivery O2 Flow Rate FiO2 05/19/18 03:57 98.1 78 19 114/79 (91) 96 98.1 05/18/18 21:00 Room Air 05/18/18 20:20 98.4 85 17 158/82 (107) 95 98.4 05/18/18 16:00 98.9 78 20 155/77 (103) 99 98.9 05/18/18 12:00 98.6 72 18 155/78 (103) 96 98.6 Intake and Output 05/18/18 05/19/18 19:00 07:00 Intake Total 350 ml 480 ml Output Total 1 ml Balance 349 ml 480 ml Intake Oral 350 ml 480 ml Stool Total 1 ml # Voids 5 4 # Bowel Movements 1 Laboratory Tests 05/19/18 06:10: Sodium Level 140, Potassium Level 4.2, Chloride Level 109H, Carbon Dioxide Level 21, Anion Gap 10, Blood Urea Nitrogen 15, Creatinine 1.5H, Estimat Glomerular Filtration Rate 42.1, Glucose Level 147H, Calcium Level 8.8 Height (Feet): 5 Height (Inches): 6.00 Weight (Pounds): 163 General Appearance: WD/WN, no apparent distress EENT: PERRL/EOMI Neck: non-tender, normal alignment Cardiovascular: normal peripheral pulses, normal rate Respiratory/Chest: chest wall non-tender, lungs clear Abdomen: normal bowel sounds, non tender Edema: no edema noted Arm (L), no edema noted Arm (R), no edema noted Leg (L), no edema noted Leg (R), no edema noted Pedal (L), no edema noted Pedal (R), no edema noted Generalized Travis Yoon M.D. May 19, 2018 09:18
[2018-05-19] MEDS: Vancomycin 1250mg/D5W 250ml IVPB SCH (09:31)
[2018-05-19 09:42] LABS: CREATINE KINASE 77 U/L (26-308)
--- NOTE | 2018-05-19 10:29 | General Surgery Progress Note ---
General Surgery-Progress Note Subjective Symptoms: improved, pain absent, tolerating diet, passing flatus Objective Last 24 Hour Vital Signs Date Time Temp Pulse Resp B/P (MAP) Pulse Ox O2 Delivery O2 Flow Rate FiO2 05/19/18 09:00 Room Air 05/19/18 08:00 98.0 79 20 179/77 (111) 95 98.0 05/19/18 03:57 98.1 78 19 114/79 (91) 96 98.1 05/18/18 21:00 Room Air 05/18/18 20:20 98.4 85 17 158/82 (107) 95 98.4 05/18/18 16:00 98.9 78 20 155/77 (103) 99 98.9 05/18/18 12:00 98.6 72 18 155/78 (103) 96 98.6 I&O Intake and Output 05/18/18 05/19/18 19:00 07:00 Intake Total 350 ml 480 ml Output Total 1 ml Balance 349 ml 480 ml Intake Oral 350 ml 480 ml Stool Total 1 ml # Voids 5 4 # Bowel Movements 1 Dressing: saturated Wound: clean Drains: none Cardiovascular: RSR Respiratory: clear Abdomen: soft, non-tender, present bowel sounds Extremities: no cyanosis Laboratory Tests Test 05/19/18 06:10 05/19/18 08:40 Sodium Level 140 MMOL/L (136-145) Potassium Level 4.2 MMOL/L (3.5-5.1) Chloride Level 109 MMOL/L (98-107) H Carbon Dioxide Level 21 MMOL/L (21-32) Anion Gap 10 mmol/L (5-15) Blood Urea Nitrogen 15 mg/dL (7-18) Creatinine 1.5 MG/DL (0.55-1.30) H Estimat Glomerular Filtration Rate 42.1 mL/min (>60) Glucose Level 147 MG/DL (74-106) H Calcium Level 8.8 MG/DL (8.5-10.1) Total Creatine Kinase 77 U/L (26-308) Plan Problems: (1) Cellulitis of left thigh Assessment & Plan: 68F with fever, leukocytosis and left thigh cellulitis. left posterior medial thigh with cellulitis, raised, warm, tender, skin blister , with serous drainage, no fluctuance. blisterectomy at bedside. serous fluid drained. dressings saturated wound still with cellulitis / phlegmon. can note small area of phlegmon at apex of wound that will likely form abscess. still possible to have deeper abscess US with small abscess. s/p I&D of left thigh abscess. recovering. improving leukocytosis improved -packing and dressings TID -cont abx -Discharge planning Rylan Angelo May 19, 2018 10:29
[2018-05-19] MEDS: Carvedilol 6.25mg Tab ORAL SCH ×2 (10:45→21:07)
[2018-05-19 12:00] VITALS: BP 155/72
--- NOTE | 2018-05-19 14:54 | Infectious Diseases Prog Note ---
Assessment/Plan Problems: (1) Sepsis Assessment & Plan: with fever , on vancomycin and ceftriaxon with negative blood culture, source suspect left upper thigh skin abscess , S/P I&D , needs to rule out malignancy of the bladder , with cystoscopy and biopsy , urology and surgery are following . will continue ceftriaxon for now , and stop vancomycin (2) UTI (urinary tract infection) Assessment & Plan: due to proteus mirabilis , on ceftriaxon (3) Leukocytosis Assessment & Plan: suspect due to UTI , left thigh abscess S/P I&D , already on wide spectrum antibiotics , monitor CBC (4) Bladder mass Assessment & Plan: recommend cystoscopy and biopsy , urology is following (5) Cellulitis of left thigh Assessment & Plan: with skin abscess due to gram negative rods and blisters , S /P I&D surgery is following, continue ceftriaxon (6) Abscess of left thigh Assessment & Plan: due to gram negative rods, S/P I&D , continue ceftriaxon empiric coverage Subjective Constitutional: Reports: no symptoms HEENT: Reports: no symptoms Respiratory: Reports: no symptoms Breasts: Reports: no symptoms Cardiovascular: Reports: no symptoms Gastrointestinal/Abdominal: Reports: no symptoms Genitourinary: Reports: no symptoms Neurologic: Reports: no symptoms Psychiatric: Reports: no symptoms Skin: Reports: no symptoms Endocrine: Reports: no symptoms Hematologic: Reports: no symptoms Musculoskeletal: Reports: no symptoms Allergies: Coded Allergies: ASPIRIN (Verified Allergy, Unknown, 09/26/16) METFORMIN (Verified Allergy, Unknown, 09/26/16) Objective Vital Signs Last 24 Hour Vital Signs Date Time Temp Pulse Resp B/P (MAP) Pulse Ox O2 Delivery O2 Flow Rate FiO2 05/19/18 12:00 98.8 78 20 155/72 (99) 95 98.8 05/19/18 10:45 79 179/77 05/19/18 09:00 Room Air 05/19/18 08:00 98.0 79 20 179/77 (111) 95 98.0 05/19/18 03:57 98.1 78 19 114/79 (91) 96 98.1 05/18/18 21:00 Room Air 05/18/18 20:20 98.4 85 17 158/82 (107) 95 98.4 05/18/18 16:00 98.9 78 20 155/77 (103) 99 98.9 Height (Feet): 5 Height (Inches): 6.00 Weight (Pounds): 163 General Appearance: WD/WN, no acute distress HEENT: normocephalic, atraumatic, anicteric, mucous membranes moist, PERRL Respiratory/Chest: chest wall non-tender, lungs clear, normal breath sounds, no respiratory distress, no accessory muscle use Cardiovascular: normal peripheral pulses, normal rate, regular rhythm, no gallop/murmur, no JVD Abdomen: normal bowel sounds, soft, non tender, no organomegaly, non distended , no mass, no scars Extremities: no cyanosis, no clubbing Skin: no rash, no lesions, no ulcers Neurologic/Psychiatric: alert, oriented x 3 Lymphatic: no neck adenopathy, no groin adenopathy Musculoskeletal: normal muscle bulk, no effusion Microbiology Date/Time Source Procedure Growth Status 05/17/18 12:40 Thigh Left Gram Stain - Final Resulted 05/17/18 12:40 Wound Culture - Preliminary Gram Negative Bacillus 1 Resulted Laboratory Tests Test 05/19/18 06:10 05/19/18 08:40 Sodium Level 140 MMOL/L (136-145) Potassium Level 4.2 MMOL/L (3.5-5.1) Chloride Level 109 MMOL/L (98-107) H Carbon Dioxide Level 21 MMOL/L (21-32) Anion Gap 10 mmol/L (5-15) Blood Urea Nitrogen 15 mg/dL (-18) Creatinine 1.5 MG/DL (0.55-1.30) H Estimat Glomerular Filtration Rate 42.1 mL/min (>60) Glucose Level 147 MG/DL (74-106) H Calcium Level 8.8 MG/DL (8.5-10.1) Total Creatine Kinase 77 U/L (26-308) Current Medications Medications (Trade) Dose Ordered Sig/Jhno Route PRN Reason Start Time Stop Time Status Last Admin Dose Admin Acetaminophen (Tylenol) 650 mg Q4H PRN ORAL Mild Pain (Pain Scale 1-3) 05/12/18 16:45 06/11/18 16:44 05/18/18 19:42 Atorvastatin Calcium (Lipitor) 80 mg QHS ORAL 05/12/18 21:00 06/11/18 20:59 05/18/18 21:03 Carvedilol (Coreg) 6.25 mg EVERY 12 HOURS ORAL 05/19/18 10:30 06/18/18 10:29 05/19/18 10:45 Ceftriaxone Sodium 2 gm/ Dextrose 110 ml @ 220 mls/hr Q24H IVPB 05/17/18 18:00 05/24/18 17:59 05/18/18 17:15 Dextrose (Dextrose 50%) 25 ml STAT PRN IV Hypoglycemia 05/12/18 16:45 06/11/18 16:44 Dextrose (Dextrose 50%) 50 ml STAT PRN IV Hypoglycemia 05/12/18 16:45 06/11/18 16:44 Diphenhydramine HCl (Benadryl) 25 mg Q6H PRN ORAL Itching/Pruritis 05/12/18 16:45 06/11/18 16:44 Docusate Sodium (Colace) 100 mg EVERY 12 HOURS ORAL 05/12/18 21:00 06/11/18 20:59 05/15/18 08:44 Heparin Sodium (Porcine) (Heparin 5000 units/ml) 5,000 units EVERY 8 HOURS SUBQ 05/12/18 22:00 06/11/18 21:59 05/19/18 14:36 Insulin Aspart (NovoLOG) BEFORE MEALS AND HS SUBQ 05/12/18 21:00 06/11/18 20:59 05/19/18 12:28 Insulin Detemir (Levemir) 15 units BEDTIME SUBQ 05/15/18 21:00 06/12/18 20:59 05/18/18 21:06 Ondansetron HCl (Zofran) 4 mg Q6H PRN IVP Nausea & Vomiting 05/12/18 16:45 06/11/18 16:44 05/17/18 09:13 Vancomycin HCl (Vanco rx to dose) 1 ea DAILY PRN MISC Per rx protocol 05/13/18 06:30 06/12/18 06:29 Vancomycin HCl/ Dextrose 250 ml @ 166.667 mls/hr Q24H IVPB 05/15/18 09:00 05/20/18 08:59 05/19/18 09:31 Alexis Bernard M.D. May 19, 2018 14:54
--- NOTE | 2018-05-19 15:28 | Neurology Progress Note ---
Interim History Interim History Interim History Ms. Gupta feels very well. She is in bed now. She has been up in a chair and has been walking more. She is able to stand and walk better. The mind is clear. She feels stronger. She still has mild numbness in both her legs. The pain in her legs has resolved. The strength in the legs is much better. She denies any new neurologic symptoms. Review of Systems Neuro Review of Systems Benign. Objective Physical Exam Last Vital Signs Date Time Temp Pulse Resp B/P (MAP) Pulse Ox O2 Delivery O2 Flow Rate FiO2 05/19/18 12:00 98.8 78 20 155/72 (99) 95 98.8 05/19/18 09:00 Room Air 05/13/18 09:00 2.0 Laboratory Tests Test 05/19/18 06:10 05/19/18 08:40 Sodium Level 140 MMOL/L (136-145) Potassium Level 4.2 MMOL/L (3.5-5.1) Chloride Level 109 MMOL/L (98-107) H Carbon Dioxide Level 21 MMOL/L (21-32) Anion Gap 10 mmol/L (5-15) Blood Urea Nitrogen 15 mg/dL (7-18) Creatinine 1.5 MG/DL (0.55-1.30) H Estimat Glomerular Filtration Rate 42.1 mL/min (>60) Glucose Level 147 MG/DL (74-106) H Calcium Level 8.8 MG/DL (8.5-10.1) Total Creatine Kinase 77 U/L (26-308) Neurologic Exam Objective PHYSICAL EXAMINATION: GENERAL: She is a well-developed, well-nourished, slightly obese black lady, lying in bed, in no acute distress. HEAD: Normocephalic and atraumatic. EENT: Examination benign. NECK: No neck rigidity was observed. NEUROLOGICAL EXAMINATION: MENTAL STATUS EXAMINATION: She was awake and alert. She was oriented to person, place, and time. She was able to recall 3/3 words immediately, and in 1 minute and 3 minutes. She was able to remember presidents, Trump through [employer]. Her mathematical skills were impaired. Her visuospatial function was also impaired. SPEECH: She had a mild dysarthria, but it should be noted that she was edentulous. LANGUAGE: She had an anomia for low-frequency words, however, it is unclear as to what her educational level is. CRANIAL NERVE EXAMINATION: II: The visual kim were intact on confrontation testing. III, IV & : The external ocular movements were full and the pupils 3 mm in diameter, equal, round, regular, and reactive to light. V: She had normal facial sensations, and the temporales, masseters, and pterygoids functioned normally. VII: She had normal facial expressions and no facial asymmetry. VIII: She was able to hear well bilaterally and had no nystagmus. IX: The palate moved symmetrically on phonation. X: She had no hoarseness of voice. XI: The sternocleidomastoids and trapezii functioned normally. XII: The tongue was in midline without any fasciculations or atrophy. MOTOR SYSTEM: The tone was normal in all four extremities. Examination of muscle mass revealed no focal wasting. Examination of power revealed G 5/5 power in all muscle groups. SENSORY EXAMINATION: She had intact sensations to pinprick, light touch, and graphesthesia, but she complained of altered sensations in the right leg more than the left leg. REFLEXES: 0 at the biceps, triceps, brachioradialis, knees, and ankles. The plantar responses were flexor bilaterally. COORDINATION: She performed well on [id number] and [id number] testing. STANCE: She stood up independently. GAIT: She walked well independently. Impression/Recommendations Diagnostic Impression 1. Ms. Tammy Gupta is a 68-year-old, right-handed, black lady, with a past history of hypertension and diabetes mellitus, who got out of bed on the morning of 05/12/18 and her legs collapsed. Following that she was unable to walk because of pain, numbness, and weakness in both her lower extremities. She also had some low back pain. 2. She feels very well. She is in bed now. She has been up in a chair and has been walking more. She is able to stand and walk better. The mind is clear. She feels stronger. She still has mild numbness in both her legs. The pain in her legs has resolved. The strength in the legs is much better. She denies any new neurologic symptoms. 3. On neurological examination, at this time, she is fully oriented. She has mild problems with memory, visuospatial function, higher cognitive function, and language. The strength in both lower extremities has returned to normal with no give way weakness. Her deep tendon reflexes are globally absent. The plantar responses are flexor. She is able to stand and walk independently. 4. Laboratory data on admission revealed that her WBC count was elevated to 15, 400 with a left-sided shift with 75% neutrophils. The chemistry panel revealed that the BUN was elevated at 35, creatinine was elevated at 2.5, and blood glucose was elevated at 385. Her urinalysis revealed 2+ leukocyte esterase, and 5-10 red blood cells, and 20-30 white blood cells with a moderate amount of bacteria in the urine. 5. Further laboratory tests have revealed that her HbA1C is at 11.8% confirming that her diabetes is not controlled. 6. The CT scan of the brain without contrast is benign for acute pathology, but does reveal some atrophy and deep white matter changes. 7. The MRI of the LS spine done on 05/12/18 revealed: - Chronic degenerative spondylosis at multiple levels largely characterized by facet arthropathy. - Moderate central spinal stenosis L4-5 with moderate to severe bilateral foraminal stenosis. - L5-S1 moderate to severe bilateral foraminal stenosis. - L3-4 mild to moderate bilateral foraminal stenosis. 8. The patient's history, neurological examination, laboratory data, and imaging studies are most compatible with a fall due to her legs giving way and followed by an inability to walk due to pain, numbness, and weakness in both her lower extremities. In addition, she also had a urinary tract infection, and diabetes out of control. 9. Her motor function has improved significantly and she is able to stand and walk independently. 10. She has been noted to have a possible bladder mass which is being investigated. Recommendations 1. Continue present management. 2. Mobilize with the help of physical and occupational therapy. 3. Investigations for bladder mass. 4. Encourage to increase activity. Sahara Bunn M.D., M.S.P.SAHARA MAYNARD May 19, 2018 15:28
[2018-05-19 16:00] VITALS: BP 151/74
[2018-05-19] MEDS: cefTRIAXone 2 GM in D5W 110 ML IVPB SCH (17:14)
[2018-05-19 20:00] VITALS: BP 151/78
[2018-05-19] MEDS: Atorvastatin 80mg tab ORAL SCH (21:06)
[2018-05-19] MEDS: Levemir Flexpen SUBQ SCH (21:11)
[2018-05-20] VITALS: BP 140/64
[2018-05-20 04:00] VITALS: BP 144/72
[2018-05-20] MEDS: Heparin 5000 units/ml inj SUBQ SCH ×2 (05:44→13:34)
[2018-05-20] MEDS: NovoLOG Insulin Flexpen SUBQ SCH ×3 (06:15→16:46)
[2018-05-20 08:00] VITALS: BP 127/71
[2018-05-20 08:01] LABS: ANION GAP 9 mmol/L (5-15); BLOOD UREA NITROGEN 13 mg/dL (7-18); CARBON DIOXIDE 24 MMOL/L (21-32); CHLORIDE 107 MMOL/L (98-107); CREATININE 1.5 MG/DL (0.55-1.30); SODIUM 140 MMOL/L (136-145)
[2018-05-20] MEDS: Docusate 100mg cap ORAL SCH (08:22)
[2018-05-20] MEDS: Carvedilol 6.25mg Tab ORAL SCH (08:22)
--- NOTE | 2018-05-20 09:05 | Nephrology Progress Note ---
Assessment/Plan Assessment/Plan 1. LE Weakness- previous CVA. Resolved - doing well with PT and awaiting DC, DC to Rehab once cleared by Urology 2. UTI/Buttuck Boil/Abscess- Abx per ID - s/p I&D per Gen surg 3. DM- on ISS + lantus 4. CKD 3B- Cr 1.5. . Continue Abx 5. DVT prphylaxsis with heparin 6. Bladder Lesion- Cysto to eval bladder mass per Urology 7. Hypokalemia- replace prn DC planning to Rehab Subjective Date patient seen: May 20, 2018 Time patient seen: 09:03 ROS Limited/Unobtainable: No Allergies: Coded Allergies: ASPIRIN (Verified Allergy, Unknown, 09/26/16) METFORMIN (Verified Allergy, Unknown, 09/26/16) Subjective Patient feeling better. Ambulating well Objective Last 24 Hour Vital Signs Date Time Temp Pulse Resp B/P (MAP) Pulse Ox O2 Delivery O2 Flow Rate FiO2 05/20/18 08:22 81 161/68 05/20/18 04:00 98.0 76 18 144/72 (96) 95 98.0 05/20/18 00:00 98.2 74 18 140/64 (89) 96 98.2 05/19/18 21:07 72 151/78 05/19/18 21:00 Room Air 05/19/18 20:00 98.9 72 18 151/78 (102) 96 98.9 05/19/18 16:00 98.8 80 18 151/74 (99) 97 98.8 05/19/18 12:00 98.8 78 20 155/72 (99) 95 98.8 05/19/18 10:45 79 179/77 Intake and Output 05/19/18 05/20/18 19:00 07:00 Intake Total 500 ml 240 ml Balance 500 ml 240 ml Intake Oral 500 ml 240 ml # Voids 4 4 # Bowel Movements 2 Laboratory Tests 05/20/18 06:30: Sodium Level 140, Potassium Level 4.0, Chloride Level 107, Carbon Dioxide Level 24, Anion Gap 9, Blood Urea Nitrogen 13, Creatinine 1.5H, Estimat Glomerular Filtration Rate 42.1, Glucose Level 195H, Calcium Level 9.0 Height (Feet): 5 Height (Inches): 6.00 Weight (Pounds): 163 General Appearance: WD/WN, no apparent distress EENT: PERRL/EOMI Neck: non-tender, normal alignment Cardiovascular: normal peripheral pulses, normal rate Respiratory/Chest: chest wall non-tender, lungs clear Abdomen: normal bowel sounds, non tender, soft Edema: no edema noted Arm (L), no edema noted Arm (R), no edema noted Leg (L), no edema noted Leg (R), no edema noted Pedal (L), no edema noted Pedal (R), no edema noted Generalized Travis Yoon M.D. May 20, 2018 09:05
--- NOTE | 2018-05-20 09:38 | Neurology Progress Note ---
Interim History Interim History Interim History Ms. Gupta feels very well. She is on the commode now. She was up in a chair and has been walking more. She is able to stand and walk in a more steady manner. The mind is clear. She feels stronger. She still has mild numbness in both her legs. The pain in her legs has resolved. The strength in the legs is much better. She denies any new neurologic symptoms. Review of Systems Neuro Review of Systems Benign. Objective Physical Exam Last Vital Signs Date Time Temp Pulse Resp B/P (MAP) Pulse Ox O2 Delivery O2 Flow Rate FiO2 05/20/18 09:17 Room Air 05/20/18 08:22 81 161/68 05/20/18 08:00 98.2 19 100 98.2 05/13/18 09:00 2.0 Laboratory Tests Test 05/20/18 06:30 Sodium Level 140 MMOL/L (136-145) Potassium Level 4.0 MMOL/L (3.5-5.1) Chloride Level 107 MMOL/L (98-107) Carbon Dioxide Level 24 MMOL/L (21-32) Anion Gap 9 mmol/L (5-15) Blood Urea Nitrogen 13 mg/dL (7-18) Creatinine 1.5 MG/DL (0.55-1.30) H Estimat Glomerular Filtration Rate 42.1 mL/min (>60) Glucose Level 195 MG/DL (74-106) H Calcium Level 9.0 MG/DL (8.5-10.1) Neurologic Exam Objective PHYSICAL EXAMINATION: GENERAL: She is a well-developed, well-nourished, slightly obese black lady, sitting up on her commode, in no acute distress. HEAD: Normocephalic and atraumatic. EENT: Examination benign. NECK: No neck rigidity was observed. NEUROLOGICAL EXAMINATION: MENTAL STATUS EXAMINATION: She was awake and alert. She was oriented to person, place, and time. She was able to recall 3/3 words immediately, and in 1 minute and 3 minutes. She was able to remember presidents, Trump through [employer]. Her mathematical skills were impaired. Her visuospatial function was also impaired. SPEECH: She had a mild dysarthria, but it should be noted that she was edentulous. LANGUAGE: She had an anomia for low-frequency words, however, it is unclear as to what her educational level is. CRANIAL NERVE EXAMINATION: II: The visual kim were intact on confrontation testing. III, IV & : The external ocular movements were full and the pupils 3 mm in diameter, equal, round, regular, and reactive to light. V: She had normal facial sensations, and the temporales, masseters, and pterygoids functioned normally. VII: She had normal facial expressions and no facial asymmetry. VIII: She was able to hear well bilaterally and had no nystagmus. IX: The palate moved symmetrically on phonation. X: She had no hoarseness of voice. XI: The sternocleidomastoids and trapezii functioned normally. XII: The tongue was in midline without any fasciculations or atrophy. MOTOR SYSTEM: The tone was normal in all four extremities. Examination of muscle mass revealed no focal wasting. Examination of power revealed G 5/5 power in all muscle groups. SENSORY EXAMINATION: She had intact sensations to pinprick, light touch, and graphesthesia, but she complained of altered sensations in the right leg more than the left leg. REFLEXES: 0 at the biceps, triceps, brachioradialis, knees, and ankles. The plantar responses were flexor bilaterally. COORDINATION: She performed well on [id number] and [id number]-[id number] testing. STANCE & GAIT: Deferred. Impression/Recommendations Diagnostic Impression 1. Ms. Tammy Gupta is a 68-year-old, right-handed, black lady, with a past history of hypertension and diabetes mellitus, who got out of bed on the morning of 05/12/18 and her legs collapsed. Following that she was unable to walk because of pain, numbness, and weakness in both her lower extremities. She also had some low back pain. 2. She feels very well. She is on the commode now. She was up in a chair and has been walking more. She is able to stand and walk in a more steady manner. The mind is clear. She feels stronger. She still has mild numbness in both her legs. The pain in her legs has resolved. The strength in the legs is much better. She denies any new neurologic symptoms. 3. On neurological examination, at this time, she is fully oriented. She has mild problems with memory, visuospatial function, higher cognitive function, and language. The strength in both lower extremities has returned to normal with no give way weakness. Her deep tendon reflexes are globally absent. The plantar responses are flexor. She is able to stand and walk independently. 4. Laboratory data on admission revealed that her WBC count was elevated to 15, 400 with a left-sided shift with 75% neutrophils. The chemistry panel revealed that the BUN was elevated at 35, creatinine was elevated at 2.5, and blood glucose was elevated at 385. Her urinalysis revealed 2+ leukocyte esterase, and 5-10 red blood cells, and 20-30 white blood cells with a moderate amount of bacteria in the urine. 5. Further laboratory tests have revealed that her HbA1C is at 11.8% confirming that her diabetes is not controlled. 6. The CT scan of the brain without contrast is benign for acute pathology, but does reveal some atrophy and deep white matter changes. 7. The MRI of the LS spine done on 05/12/18 revealed: - Chronic degenerative spondylosis at multiple levels largely characterized by facet arthropathy. - Moderate central spinal stenosis L4-5 with moderate to severe bilateral foraminal stenosis. - L5-S1 moderate to severe bilateral foraminal stenosis. - L3-4 mild to moderate bilateral foraminal stenosis. 8. The patient's history, neurological examination, laboratory data, and imaging studies are most compatible with a fall due to her legs giving way and followed by an inability to walk due to pain, numbness, and weakness in both her lower extremities. In addition, she also had a urinary tract infection, and diabetes out of control. 9. Her motor function has improved significantly and she is able to stand and walk independently. 10. She has been noted to have a possible bladder mass which is being investigated. Recommendations 1. Continue present management. 2. Mobilize with the help of physical and occupational therapy. 3. Investigations for bladder mass. 4. Encourage to increase activity. Sahara Zurita M.D., M.S.P.H. SAHARA ZURITA May 20, 2018 09:38
--- NOTE | 2018-05-20 11:32 | General Surgery Progress Note ---
General Surgery-Progress Note Subjective Symptoms: improved, pain absent, tolerating diet, passing flatus, BM Objective Last 24 Hour Vital Signs Date Time Temp Pulse Resp B/P (MAP) Pulse Ox O2 Delivery O2 Flow Rate FiO2 05/20/18 09:17 Room Air 05/20/18 08:22 81 161/68 05/20/18 08:00 98.2 55 19 127/71 (89) 100 98.2 05/20/18 04:00 98.0 76 18 144/72 (96) 95 98.0 05/20/18 00:00 98.2 74 18 140/64 (89) 96 98.2 05/19/18 21:07 72 151/78 05/19/18 21:00 Room Air 05/19/18 20:00 98.9 72 18 151/78 (102) 96 98.9 05/19/18 16:00 98.8 80 18 151/74 (99) 97 98.8 05/19/18 12:00 98.8 78 20 155/72 (99) 95 98.8 I&O Intake and Output 05/19/18 05/20/18 19:00 07:00 Intake Total 500 ml 240 ml Balance 500 ml 240 ml Intake Oral 500 ml 240 ml # Voids 4 4 # Bowel Movements 2 Wound: clean Drains: none Cardiovascular: RSR Respiratory: clear Abdomen: soft, non-tender, present bowel sounds Extremities: no cyanosis Laboratory Tests Test 05/20/18 06:30 Sodium Level 140 MMOL/L (136-145) Potassium Level 4.0 MMOL/L (3.5-5.1) Chloride Level 107 MMOL/L (98-107) Carbon Dioxide Level 24 MMOL/L (21-32) Anion Gap 9 mmol/L (5-15) Blood Urea Nitrogen 13 mg/dL (7-18) Creatinine 1.5 MG/DL (0.55-1.30) H Estimat Glomerular Filtration Rate 42.1 mL/min (>60) Glucose Level 195 MG/DL (74-106) H Calcium Level 9.0 MG/DL (8.5-10.1) Plan Problems: (1) Cellulitis of left thigh Assessment & Plan: 68F with fever, leukocytosis and left thigh cellulitis. left posterior medial thigh with cellulitis, raised, warm, tender, skin blister , with serous drainage, no fluctuance. blisterectomy at bedside. serous fluid drained. dressings saturated wound still with cellulitis / phlegmon. can note small area of phlegmon at apex of wound that will likely form abscess. still possible to have deeper abscess US with small abscess. s/p I&D of left thigh abscess. recovering. improving leukocytosis improving overall improving -packing and dressings TID -cont abx -Discharge planning Rylan Angelo May 20, 2018 11:32
[2018-05-20 12:00] VITALS: BP 140/59
--- NOTE | 2018-05-20 15:09 | Infectious Diseases Prog Note ---
Assessment/Plan Problems: (1) Sepsis Assessment & Plan: with fever , on ceftriaxon with negative blood culture, source suspect left upper thigh skin abscess , S/P I&D , needs to rule out malignancy of the bladder , with cystoscopy and biopsy , urology and surgery are following . will continue ceftriaxon for UTI and left thigh abscess . (2) UTI (urinary tract infection) Assessment & Plan: due to proteus mirabilis , on ceftriaxon (3) Leukocytosis Assessment & Plan: suspect due to UTI , left thigh abscess S/P I&D , already on antibiotics , monitor CBC (4) Bladder mass Assessment & Plan: recommend cystoscopy and biopsy , urology is following (5) Cellulitis of left thigh Assessment & Plan: with skin abscess due to gram negative rods and blisters , S /P I&D surgery is following, continue ceftriaxon (6) Abscess of left thigh Assessment & Plan: due to proteus mirabilis , S/P I&D , continue ceftriaxon empiric coverage for now , will treat for 7-10 days Subjective Constitutional: Reports: no symptoms HEENT: Reports: no symptoms Respiratory: Reports: no symptoms Breasts: Reports: no symptoms Cardiovascular: Reports: no symptoms Gastrointestinal/Abdominal: Reports: no symptoms Genitourinary: Reports: no symptoms Neurologic: Reports: no symptoms Psychiatric: Reports: no symptoms Skin: Reports: no symptoms Endocrine: Reports: no symptoms Hematologic: Reports: no symptoms Musculoskeletal: Reports: no symptoms Allergies: Coded Allergies: ASPIRIN (Verified Allergy, Unknown, 09/26/16) METFORMIN (Verified Allergy, Unknown, 09/26/16) Objective Vital Signs Last 24 Hour Vital Signs Date Time Temp Pulse Resp B/P (MAP) Pulse Ox O2 Delivery O2 Flow Rate FiO2 05/20/18 12:00 98.1 20 20 140/59 (86) 100 98.1 05/20/18 09:17 Room Air 05/20/18 08:22 81 161/68 05/20/18 08:00 98.2 55 19 127/71 (89) 100 98.2 05/20/18 04:00 98.0 76 18 144/72 (96) 95 98.0 05/20/18 00:00 98.2 74 18 140/64 (89) 96 98.2 05/19/18 21:07 72 151/78 7/18/18 21:00 Room Air 05/19/18 20:00 98.9 72 18 151/78 (102) 96 98.9 05/19/18 16:00 98.8 80 18 151/74 (99) 97 98.8 Height (Feet): 5 Height (Inches): 6.00 Weight (Pounds): 163 General Appearance: WD/WN, no acute distress HEENT: normocephalic, atraumatic, anicteric, mucous membranes moist, PERRL Respiratory/Chest: chest wall non-tender, lungs clear, normal breath sounds, no respiratory distress, no accessory muscle use Cardiovascular: normal peripheral pulses, normal rate, regular rhythm, no gallop/murmur, no JVD Abdomen: normal bowel sounds, soft, non tender, no organomegaly, non distended , no mass, no scars Extremities: no cyanosis, no clubbing Skin: no rash, no lesions, other - left upper thigh surgical wound covered with dressings Neurologic/Psychiatric: alert, responsive Lymphatic: no neck adenopathy, no groin adenopathy Laboratory Tests Test 05/20/18 06:30 Sodium Level 140 MMOL/L (136-145) Potassium Level 4.0 MMOL/L (3.5-5.1) Chloride Level 107 MMOL/L (98-107) Carbon Dioxide Level 24 MMOL/L (21-32) Anion Gap 9 mmol/L (5-15) Blood Urea Nitrogen 13 mg/dL (-18) Creatinine 1.5 MG/DL (0.55-1.30) H Estimat Glomerular Filtration Rate 42.1 mL/min (>60) Glucose Level 195 MG/DL (74-106) H Calcium Level 9.0 MG/DL (8.5-10.1) Current Medications Medications (Trade) Dose Ordered Sig/Jhon Route PRN Reason Start Time Stop Time Status Last Admin Dose Admin Acetaminophen (Tylenol) 650 mg Q4H PRN ORAL Mild Pain (Pain Scale 1-3) 05/12/18 16:45 06/11/18 16:44 05/20/18 05:40 Atorvastatin Calcium (Lipitor) 80 mg QHS ORAL 05/12/18 21:00 06/11/18 20:59 05/19/18 21:06 Carvedilol (Coreg) 6.25 mg EVERY 12 HOURS ORAL 05/19/18 10:30 06/18/18 10:29 05/20/18 08:22 Ceftriaxone Sodium 2 gm/ Dextrose 110 ml @ 220 mls/hr Q24H IVPB 05/17/18 18:00 05/24/18 17:59 05/19/18 17:14 Dextrose (Dextrose 50%) 25 ml STAT PRN IV Hypoglycemia 05/12/18 16:45 06/11/18 16:44 Dextrose (Dextrose 50%) 50 ml STAT PRN IV Hypoglycemia 05/12/18 16:45 06/11/18 16:44 Diphenhydramine HCl (Benadryl) 25 mg Q6H PRN ORAL Itching/Pruritis 05/12/18 16:45 06/11/18 16:44 Docusate Sodium (Colace) 100 mg EVERY 12 HOURS ORAL 05/12/18 21:00 06/11/18 20:59 05/15/18 08:44 Heparin Sodium (Porcine) (Heparin 5000 units/ml) 5,000 units EVERY 8 HOURS SUBQ 05/12/18 22:00 06/11/18 21:59 05/20/18 13:34 Insulin Aspart (NovoLOG) BEFORE MEALS AND HS SUBQ 05/12/18 21:00 06/11/18 20:59 05/20/18 11:42 Insulin Detemir (Levemir) 15 units BEDTIME SUBQ 05/15/18 21:00 06/12/18 20:59 05/19/18 21:11 Ondansetron HCl (Zofran) 4 mg Q6H PRN IVP Nausea & Vomiting 05/12/18 16:45 06/11/18 16:44 05/17/18 09:13 Alexis Bernard M.D. May 20, 2018 15:09
[2018-05-20 16:00] VITALS: BP_SYST 114; BP_SYST 121; BP_DIAS 59; BP_DIAS 69
[2018-05-20] MEDS: cefTRIAXone 2 GM in D5W 110 ML IVPB SCH (17:08)
[2018-05-20] MEDS ORDERED: CEPHALEXIN500 MG ORAL (17:40)
--- NOTE | 2018-05-20 17:41 | Discharge Instructions ---
Discharge Instructions Discharge Instructions Services at Discharge: other - Rehab Diet: 2 GM sodium (low sodium) Resume Normal Activity?: Yes Activity: light activity Pneumonia Vaccine: vaccine not indicated Influenza Vaccine (Aug to Dec): vaccine not indicated For Congestive Heart Failure Reminder Report to your physician any weight gain of 5 pounds or more in one week. Travis Yoon M.D. May 20, 2018 17:41
[2018-05-20 20:00] VITALS: BP 134/68
--- NOTE | 2018-05-21 14:08 | Discharge Summary ---
Discharge Summary Discharge Summary _ DATE OF ADMISSION: 05/12/2018 DATE OF DISCHARGE: 05/20/2018 CONSULTANTS: Dr. Rylan Thao BRIEF HOSPITAL COURSE: Patient is a 68-year-old black female, who presented to emergency room after falling off from her bed. She was coming out from her bed and slightly fell over to the floor. She picked up herself and since then family said both her right and left leg had been weak. She felt tired and fatigued. Patient has a history of Benoit's palsy. She was noted to be not like herself, and was overall weak especially in the legs, and not able to support herself. She was then taken to ED. On neuro exam there was no focal neuro deficits noted , arm was contracted. Blood work showed elevated WBC 15, creatinine was 2.5, BUN was 35. She had elevated alkaline phosphatase. Urinalysis was positive for UTI. She had a CT of the head that was negative for acute intracranial bleed, mass effect or edema. She had CT of the hip, negative for acute fracture. X-ray of the right knee was likewise negative for fractures, malalignment or joint effusion. She was then admitted for evaluation of lower extremity weakness, UTI and leukocytosis. She was started on vancomycin and Zosyn empirically pending culture results. Neuro evaluation was done. MRI of the lumbar spine revealed chronic degenerative spondylosis at multiple levels characterized by facet arthropathy. There was moderate central canal spinal stenosis at L4-L5 with moderate to severe bilateral foraminal stenosis. There was L5-S1 moderate to severe bilateral foraminal stenosis; L3-L4 mild to moderate bilateral foraminal stenosis. She was given PT mobility and was advised to increase activity level. Renal ultrasound showed possible clot or mass at the base of the bladder. She was recommended CT urogram. She underwent noncontrast CT of the abdomen and pelvis. There was persistent throughout mass lesion in the bladder. No evidence of hydronephrosis, no evidence of bowel obstruction. She had an elevated A1c confirming uncontrolled diabetes mellitus. She was given Lantus and insulin sliding scale. She was having fever and continued leukocytosis. There was a noted left thigh cellulitis with possible abscess. Surgery was called to evaluate. On evaluation of the left posterior medial thigh was seen a raised, warm, tender, skin blister with serous drainage, no fluctuance. a blisterectomy was done at bedside and drained serosanguineous fluid. She was then given wound care. Ultrasound of the thigh showed small 2.3 x 2.9 x 1.7 cm abscess. She was given physical therapy rehabilitation. She was able to walk with a walker. She was given potassium replacements. Kidney function improved. Urine culture with growth of Proteus. Blood culture with Proteus. Blood culture did not isolate any growth. Vancomycin was discontinued. Leukocytosis resolving and patient afebrile. She was eventually cleared for discharge. Will need outpatient cystoscopy to evaluate for bladder mass. FINAL DIAGNOSES: Sepsis Proteus UTI Lower extremity weakness with previous CVA, resolved Diabetes mellitus out of control CK D stage IIIB Bladder mass Hypokalemia Cellulitis and abscess on the left thigh status post I&D DISPOSITION: Patient was discharged to [facility]. DISCHARGE MEDICATIONS: Refer to Discharge Medication List. cont Keflex as outpatient. I have been assigned to dictate discharge summary on this account, and I was not involved in the patient's management. Marta Mercedes NP May 21, 2018 14:08
== END 2018-05-20 20:20 | DRG 872 ==
LOC: EMR 12:59 → EDBEDREQ 16:00 → 3E 16:03 → EDBEDREQ 18:50
PROC: 0H9JXZZ Drainage of Left Upper Leg Skin, External Approach (ICD-10-PCS; principal; 2018-05-15)
DX: A41.9 Sepsis, unspecified organism (principal); N39.0 Urinary tract infection, site not specified; L03.116 Cellulitis of left lower limb; L02.416 Cutaneous abscess of left lower limb; N17.9 Acute kidney failure, unspecified; B96.4 Proteus (mirabilis) (morganii) as the cause of diseases classified elsewhere; Z86.73 Personal history of transient ischemic attack (TIA), and cerebral infarction without residual deficits; R53.1 Weakness; E11.65 Type 2 diabetes mellitus with hyperglycemia; N18.3 Chronic kidney disease, stage 3 (moderate); N32.9 Bladder disorder, unspecified; E87.6 Hypokalemia; Z91.81 History of falling; E78.5 Hyperlipidemia, unspecified; M47.816 Spondylosis without myelopathy or radiculopathy, lumbar region; M47.897 Other spondylosis, lumbosacral region; M48.061 Spinal stenosis, lumbar region without neurogenic claudication; M48.07 Spinal stenosis, lumbosacral region; F17.200 Nicotine dependence, unspecified, uncomplicated; Z88.6 Allergy status to analgesic agent; Z88.8 Allergy status to other drugs, medicaments and biological substances; Z79.4 Long term (current) use of insulin
CPT/HCPCS: 36415; 70450; 71045; 72148; 74176; 76770; 80048; 80053; 80202; 81001; 82248; 82306; 82550; 82553; 82607; 82746; 82962; 83036; 84165; 84443; 84484; 85025; 85651; 86592; 87040; 87070; 87086; 87181; 87205; 93005; 99285; J1815; J2405; J8499; S5561

== ENCOUNTER 2020-01-12 23:08 | Emergency (ER) | payer MEDICARE, OTHER ==
[~2020-01-12] VITALS: Ht 167.6 cm; Wt 76.2 kg
[~2020-01-12 23:08] MED LIST changes: +AUGMENTIN 875-1 EAC1 ORAL; +CEPHALEXIN500 MG ORAL; +CLINDAMYCIN HC300 MG ORAL; +GABAPENTIN600 MG ORAL; +HYDROCHLOROTHIA25 MG ORAL; +LEVOFLOXACIN500 MG ORAL; +LISINOPRIL20 MG ORAL
--- NOTE | 2020-01-12 23:45 | NUR ---
ED Nurse Note: Patient walked in from home d/t anterior right labia majora boil. Patient stated it was lanced in November 2019 but feels like it has gotten worse and is painful 10/10 aching. Patient aao x 4 and ambulatory. Patient placed in gown. No acute distress noted during assessment. ERMD at bedside.
[2020-01-12 23:46] VITALS: BP 162/90
[2020-01-13] MEDS ORDERED: Lidocaine 1% 10mg/ml/EPI 0.01mg/ml 30ml INJ ONE
--- NOTE | 2020-01-13 00:08 | Emergency Room Report ---
History of Present Illness General Chief Complaint: Skin Rash/Abscess Source: Patient Present Illness HPI Disclaimer: Please note that this report is being documented using DRAGON technology. This can lead to erroneous entry secondary to incorrect interpretation by the dictating instrument. HPI: 69-year-old female history of diabetes presents for evaluation of an abscess in her right groin. She has had recurrent abscesses on the external portion of the right labia which have required I&D in the past. She states over the past 2 weeks she notes a worsening pain and swelling without open drainage or skin breakdown. Denies dysuria, hematuria, vaginal bleeding or vaginal discharge. Denies fever or chills. Worsening pain and swelling over the right labia. Denies any pain internally. Has not followed up with her PMD or [employer]. PMH: Diabetes, hypertension, prior stroke, recurrent abscesses PSH: Incision and drainage Allergies: Aspirin, metformin Social Hx: Smoker COVID-19 risk:Travel to affect: No Allergies: Coded Allergies: ASPIRIN (Verified Allergy, Unknown, 09/26/16) METFORMIN (Verified Allergy, Unknown, 09/26/16) Nursing Documentation-PMH Hx Hypertension: Yes Hx Pacemaker: No Hx Asthma: No Hx COPD: No Hx Diabetes: Yes Hx Cancer: No Hx Gastrointestinal Problems: No Hx Dialysis: No Hx Neurological Problems: Yes - Benoit's Palsy Hx Cerebrovascular Accident: Yes Hx Seizures: No Review of Systems All Other Systems: negative except mentioned in HPI Physical Exam Vital Signs Date Time Temp Pulse Resp B/P (MAP) Pulse Ox O2 Delivery O2 Flow Rate FiO2 01/12/20 23:31 99.0 105 20 166/91 (116) 96 Room Air General: Awake and alert, no acute distress HEENT: NC/AT. EOMI. Resp: Normal work of breathing Skin: The entire right labia majora is edematous and indurated. No fluctuance. Tender to palpation. No warmth or overlying erythema. No ulcerations, no vesicles. No swelling or tenderness over the labia minora. MSK: Normal tone and bulk. Moving all extremities. No obvious deformity. Neuro: Awake and alert. Mentating appropriately Procedures Ultrasound Ultrasound : Consent: Verbal Progress Ultrasound of the right labia: Diffuse cobblestoning appearance. Consistent with cellulitis. No evidence of abscess was observed. Patient tolerated procedure well. Performed by me, electronically signed by Dr. Trevon Leigh Medical Decision Making Diagnostic Impression: Primary Impression: Cellulitis of labia ER Course 69-year-old female history of recurrent abscess in the right groin particular over the right labia presents for evaluation of tenderness and swelling over the past 2 weeks. Differential includes but not limited to cellulitis, abscess , fornical, folliculitis, Bartholin cyst, Bartholin abscess. Bedside ultrasound consistent with a superficial cellulitis. No evidence of abscess seen on bedside ultrasonography. No fluid pocket identified that would be suitable for incision and drainage. The patient be started on Bactrim given that she has recurrent infections in the right groin. She will be referred to her [employer]. I stressed with her the importance of following up as quickly as possible. Which is otherwise well-appearing, no other complaints, nonseptic. Will give a dose of antibiotics prior to departure and discharge on oral antibiotics. She will follow-up with her PMD and [employer]. Can return with new or worsening symptoms. Last Vital Signs Date Time Temp Pulse Resp B/P (MAP) Pulse Ox O2 Delivery O2 Flow Rate FiO2 01/12/20 23:46 99.0 89 20 162/90 98 Room Air Disposition: HOME, SELF-CARE Condition: Stable Scripts Trimethoprim/Sulfamethoxazole 160/800* (BACTRIM DS TABLET*) 1 Each Tablet 1 TAB ORAL Q12H for 10 Days, #20 TAB 0 Refills Prov: Trevon Leigh MD 01/13/20 Trevon Leigh MD Jan 13, 2020 00:08
[2020-01-13] MEDS ORDERED: BACTRIM DS TAB1 EAC1 ORAL (00:26)
[2020-01-13] MEDS ORDERED: Bactrim-DS 1 tab ORAL ONE (00:30)
[2020-01-13 00:46] VITALS: BP 158/95
--- NOTE | 2020-01-13 00:46 | NUR ---
ER DISCHARGE NOTE: Patient is cleared to be discharged per ERMD, pt is aox4, on room air, with stable vital signs. pt was given dc and prescription instructions, pt was able to verbalize understanding, pt id band and iv site removed without complications. pt is able to ambulate with steady gait. pt took all belongings. pt stable upon discharge accompanied by family. Addendum: 01/13/20 at 0151 by IOROPEL ER DISCHARGE NOTE: Patient is cleared to be discharged per ERMD, pt is aox4, on room air, with stable vital signs. pt was given dc and prescription instructions, pt was able to verbalize understanding, pt id band removed. pt is able to ambulate with steady gait. pt took all belongings. pt stable upon discharge accompanied by family.
== END 2020-01-13 00:46 | disposition home or self-care (01) ==
LOC: EMR 23:50
DX: N76.2 Acute vulvitis (principal); I10 Essential (primary) hypertension; E11.9 Type 2 diabetes mellitus without complications; Z88.6 Allergy status to analgesic agent; Z88.8 Allergy status to other drugs, medicaments and biological substances; Z86.73 Personal history of transient ischemic attack (TIA), and cerebral infarction without residual deficits
CPT/HCPCS: 99284

== ENCOUNTER 2020-01-16 16:19 | Inpatient (IN) | payer MEDICARE, OTHER ==
[~2020-01-16] VITALS: Ht 162.6 cm; Wt 99.8 kg
[~2020-01-16 16:19] MED LIST changes: +BACTRIM DS TAB1 EAC1 ORAL
[2020-01-16 17:44] VITALS: BP 138/100
[2020-01-16 18:50] LABS: HEMATOCRIT 43.4 % (37.0-47.0); HEMOGLOBIN 14.4 G/DL (12.0-16.0); MEAN CORPUSCULAR VOLUME 93 FL (80-99); PLATELET COUNT 404 K/UL (150-450); RED BLOOD COUNT 4.67 M/UL (4.20-5.40); RED CELL DISTRIBUTION WIDTH 12.8 % (11.6-14.8)
[2020-01-16 18:57] LABS: WHITE BLOOD COUNT 30.2 K/UL (4.8-10.8)
[2020-01-16] MEDS ORDERED: Omnipaque-300 100ml vial INJ PRN (19:00)
[2020-01-16] MEDS ORDERED: Cefepime HCl 2 GM in NS 110 ML IV ONE (19:30)
[2020-01-16] MEDS ORDERED: Sodium Chloride 2,200 ML IVLG ONE (19:30)
[2020-01-16 19:40] LABS: APPEARANCE,URINE CLEAR; BILIRUBIN, URINE NEGATIVE (NEGATIVE); GLUCOSE, URINE (UA) NEGATIVE (NEGATIVE); KETONES,URINE 1+ (NEGATIVE); LEUKOCYTE ESTERASE ,URINE NEGATIVE (NEGATIVE); NITRITE,URINE NEGATIVE (NEGATIVE); PH,URINE 5 (4.5-8.0); PROTEIN,URINE 1+ (NEGATIVE); UROBILINOGEN,URINE NORMAL MG/DL (0.0-1.0)
[2020-01-16 19:42] LABS: COLOR,URINE YELLOW
[2020-01-16 19:45] VITALS: BP 142/64
--- NOTE | 2020-01-16 20:04 | Emergency Room Report ---
History of Present Illness General Chief Complaint: Abdominal Pain Source: Patient Present Illness HPI This patient is brought in by her family member. The patient had been seen previously for an area of swelling on her right vulva. She had been diagnosed with cellulitis and placed on oral antibiotics. The family member states that for the past week she has noticed significant decline in functioning. The patient had been walking and doing some activities of daily living but over the past week has not even been walking. She also is not taking her insulin like she normally does. She complains of pain in her right vulva. The area is also very swollen. She has had a poor appetite and has been fatigued and weak. She denies nausea or vomiting. She denies fever or chills. She denies chest pain or shortness of breath. She has no other complaints. COVID-19 risk:Travel to affect: No Has patient experienced hensley: No Allergies: Coded Allergies: ASPIRIN (Verified Allergy, Unknown, 09/26/16) METFORMIN (Verified Allergy, Unknown, 09/26/16) Patient History Past Medical History: see triage record, DM, HTN, other - Benoit's Palsy Social History: Denies: smoking, alcohol use, drug use Reviewed Nursing Documentation: PMH: Agreed; PSxH: Agreed Nursing Documentation-PMH Hx Hypertension: Yes Hx Pacemaker: No Hx Asthma: No Hx COPD: No Hx Diabetes: Yes Hx Cancer: No Hx Gastrointestinal Problems: No Hx Dialysis: No Hx Neurological Problems: Yes - Benoit's Palsy Hx Cerebrovascular Accident: Yes Hx Seizures: No Review of Systems All Other Systems: negative except mentioned in HPI Physical Exam Vital Signs Date Time Temp Pulse Resp B/P (MAP) Pulse Ox O2 Delivery O2 Flow Rate FiO2 01/16/20 17:37 99.0 96 18 138/100 (113) 98 Room Air Sp02 EP Interpretation: reviewed, normal General Appearance: no apparent distress, alert, GCS 15, non-toxic Head: normocephalic, atraumatic Eyes: bilateral eye normal inspection, bilateral eye PERRL ENT: hearing grossly normal, normal pharynx, no angioedema, normal voice Neck: full range of motion, supple/symm/no masses Respiratory: chest non-tender, lungs clear, normal breath sounds, no respiratory distress, no retraction, no accessory muscle use, speaking full sentences Cardiovascular #1: regular rate, rhythm, no edema Gastrointestinal: normal bowel sounds, non tender, soft, non-distended, no guarding, no rebound Rectal: deferred Genitourinary: other - R. vulva swollen, tender and indurated. Musculoskeletal: back normal, normal range of motion, non-tender Neurologic: alert, motor strength/tone normal, oriented x3, sensory intact, responsive, speech normal Psychiatric: judgement/insight normal, memory normal, mood/affect normal, no suicidal/homicidal ideation Skin: other - See above in Medical Decision Making Diagnostic Impression: Primary Impression: Necrotizing fasciitis Additional Impressions: Vulvar abscess Cellulitis Leukocytosis Hyperglycemia Uncontrolled diabetes mellitus MATEO (acute kidney injury) ER Course This patient has findings on exam concerning for a vulvar abscess. CT done of the pelvis showed extensive stranding and fluid attenuation involving the right perineum including the labial region and region of the vulva on the right. There is a large amount of soft tissue gas in the anterior right perineum with gas extending superiorly and gas present superficial to the rectus sheath near the region of the pelvic inlet. This is concerning for a necrotizing fasciitis. I am also concerned the patient may be bacteremic as her white blood cell count is 30,000. Patient was given broad-spectrum IV antibiotics and aggressive IV fluid resuscitation and admitted for further evaluation and treatment. This patient is critically ill. This patient required complex medical decision- making, aggressive intervention, extensive laboratory workup and monitoring. Critical care time: 40 minutes. Laboratory Tests Test 01/16/20 18:20 01/16/20 19:00 01/16/20 19:40 White Blood Count 30.2 K/UL (4.8-10.8) *H Red Blood Count 4.67 M/UL (4.20-5.40) Hemoglobin 14.4 G/DL (12.0-16.0) Hematocrit 43.4 % (37.0-47.0) Mean Corpuscular Volume 93 FL (80-99) Mean Corpuscular Hemoglobin 30.8 PG (27.0-31.0) Mean Corpuscular Hemoglobin Concent 33.2 G/DL (32.0-36.0) Red Cell Distribution Width 12.8 % (11.6-14.8) Platelet Count 404 K/UL (150-450) Mean Platelet Volume 7.5 FL (6.5-10.1) Neutrophils (%) (Auto) % (45.0-75.0) Lymphocytes (%) (Auto) % (20.0-45.0) Monocytes (%) (Auto) % (1.0-10.0) Eosinophils (%) (Auto) % (0.0-3.0) Basophils (%) (Auto) % (0.0-2.0) Differential Total Cells Counted 100 Neutrophils % (Manual) 80 % (45-75) H Lymphocytes % (Manual) 10 % (20-45) L Monocytes % (Manual) 4 % (1-10) Eosinophils % (Manual) 0 % (0-3) Basophils % (Manual) 0 % (0-2) Band Neutrophils 6 % (0-8) Platelet Estimate Adequate Platelet Morphology Normal Red Blood Cell Morphology Normal Urine Color Yellow Urine Appearance Clear Urine pH 5 (4.5-8.0) Urine Specific [place] 1.025 (1.005-1.035) Urine Protein 1+ (NEGATIVE) H Urine Glucose (UA) Negative (NEGATIVE) Urine Ketones 1+ (NEGATIVE) H Urine Blood Negative (NEGATIVE) Urine Nitrite Negative (NEGATIVE) Urine Bilirubin Negative (NEGATIVE) Urine Urobilinogen Normal MG/DL (0.0-1.0) Urine Leukocyte Esterase Negative (NEGATIVE) Urine RBC 0-2 /HPF (0 - 2) Urine WBC 0-2 /HPF (0 - 2) Urine Squamous Epithelial Cells Few /LPF (NONE/OCC) Urine Bacteria Few /HPF (NONE) Sodium Level 141 MMOL/L (136-145) Potassium Level 3.5 MMOL/L (3.5-5.1) Chloride Level 106 MMOL/L (98-107) Carbon Dioxide Level 15 MMOL/L (21-32) L Anion Gap 20 mmol/L (5-15) H Blood Urea Nitrogen 43 mg/dL (7-18) H Creatinine 1.7 MG/DL (0.55-1.30) H Estimate Glomerular Filtration Rate 36.4 mL/min (>60) Glucose Level 493 MG/DL (74-106) H Lactic Acid Level 2.30 mmol/L (0.4-2.0) H Calcium Level 7.1 MG/DL (8.5-10.1) L Total Bilirubin 0.4 MG/DL (0.2-1.0) Aspartate Amino Transferase (AST) 12 U/L (15-37) L Alanine Aminotransferase (ALT) 12 U/L (12-78) Alkaline Phosphatase 182 U/L (46-116) H Total Protein 5.5 G/DL (6.4-8.2) L Albumin 1.7 G/DL (3.4-5.0) L Globulin 3.8 g/dL Albumin/Globulin Ratio 0.4 (1.0-2.7) L Lipase 93 U/L (73-393) Laboratory Tests Test 01/16/20 18:20 01/16/20 19:00 01/16/20 19:40 White Blood Count 30.2 K/UL (4.8-10.8) *H Red Blood Count 4.67 M/UL (4.20-5.40) Hemoglobin 14.4 G/DL (12.0-16.0) Hematocrit 43.4 % (37.0-47.0) Mean Corpuscular Volume 93 FL (80-99) Mean Corpuscular Hemoglobin 30.8 PG (27.0-31.0) Mean Corpuscular Hemoglobin Concent 33.2 G/DL (32.0-36.0) Red Cell Distribution Width 12.8 % (11.6-14.8) Platelet Count 404 K/UL (150-450) Mean Platelet Volume 7.5 FL (6.5-10.1) Neutrophils (%) (Auto) % (45.0-75.0) Lymphocytes (%) (Auto) % (20.0-45.0) Monocytes (%) (Auto) % (1.0-10.0) Eosinophils (%) (Auto) % (0.0-3.0) Basophils (%) (Auto) % (0.0-2.0) Neutrophils % (Manual) Pending Lymphocytes % (Manual) Pending Platelet Estimate Pending Platelet Morphology Pending Urine Color Yellow Urine Appearance Clear Urine pH 5 (4.5-8.0) Urine Specific [place] 1.025 (1.005-1.035) Urine Protein 1+ (NEGATIVE) H Urine Glucose (UA) Negative (NEGATIVE) Urine Ketones 1+ (NEGATIVE) H Urine Blood Negative (NEGATIVE) Urine Nitrite Negative (NEGATIVE) Urine Bilirubin Negative (NEGATIVE) Urine Urobilinogen Normal MG/DL (0.0-1.0) Urine Leukocyte Esterase Negative (NEGATIVE) Urine RBC Pending Urine WBC Pending Urine Squamous Epithelial Cells Pending Urine Bacteria Pending Sodium Level Pending Potassium Level Pending Chloride Level Pending Carbon Dioxide Level Pending Blood Urea Nitrogen Pending Creatinine Pending Estimate Glomerular Filtration Rate Pending Glucose Level Pending Lactic Acid Level Pending Calcium Level Pending Total Bilirubin Pending Aspartate Amino Transferase (AST) Pending Alanine Aminotransferase (ALT) Pending Alkaline Phosphatase Pending Total Protein Pending Albumin Pending Globulin Pending Lipase Pending EKG Diagnostic Results Rate: normal Rhythm: NSR ST Segments: no acute changes Other Impression Prolonged Qtc Rhythm Strip Diag. Results EP Interpretation: yes Rate: 90's Rhythm: NSR, no PVC's, no ectopy CT/MRI/US Diagnostic Results CT/MRI/US Diagnostic Results : Imaging Test Ordered: CT abd/pelvis Impression CT ABDOMEN + PELVIS With Contrast: Comparison: 05/14/18 small hiatal hernia. Small pericardial effusion. No acute findings involving the unenhanced solid abdominal organs with the exception of mild dilatation of the proximal right upper renal collecting system with no identifiable calculus. The bladder is moderately distended and may be the source of ureteral dilatation on the right. Negative for lower GI tract obstruction, focal wall thickening or pneumatosis. Negative for pneumoperitoneum. Extensive stranding and fluid attenuation involving the right perineum including the labial region and region of the vulva on the right. There is a large amount of soft tissue gas in the anterior right perineum with gas extending superiorly with gas present superficial to the rectus sheath near the region of the pelvic inlet on the right. Findings are suggestive of cellulitis and necrotizing fasciitis. Emergent surgical consultation is required. <MYCVCSECTION> Communications: Last Vital Signs Date Time Temp Pulse Resp B/P (MAP) Pulse Ox O2 Delivery O2 Flow Rate FiO2 01/16/20 19:45 99.0 90 18 142/64 98 Room Air Disposition: ADMITTED INPATIENT Condition: Critical Kamla Trivedi DO Jan 16, 2020 20:04
[2020-01-16 20:21] LABS: ALANINE AMINOTRANSFERASE 12 U/L (12-78); ALBUMIN 1.7 G/DL (3.4-5.0); ALBUMIN/GLOBULIN RATIO 0.4 (1.0-2.7); ALKALINE PHOSPHATASE 182 U/L (46-116); ANION GAP 20 mmol/L (5-15); ASPARTATE AMINO TRANSFERASE 12 U/L (15-37); BILIRUBIN,TOTAL 0.4 MG/DL (0.2-1.0); BLOOD UREA NITROGEN 43 mg/dL (7-18); CALCIUM 7.1 MG/DL (8.5-10.1); CARBON DIOXIDE 15 MMOL/L (21-32); CHLORIDE 106 MMOL/L (98-107); CREATININE 1.7 MG/DL (0.55-1.30); POTASSIUM 3.5 MMOL/L (3.5-5.1); SODIUM 141 MMOL/L (136-145)
[2020-01-16] MEDS ORDERED: Morphine Sulfate 4mg/ml Inj (IV USE ONLY) IVP ONE ×2 (20:45→23:45)
[2020-01-16] MEDS ORDERED: Insulin Human Regular 100units/ml 3ml SUBQ ONE (20:45)
--- NOTE | 2020-01-16 21:18 | Diagnostic Imaging Report ---
Indication: Right vulvar swelling, history of cellulitis Technique: Spiral acquisitions obtained through the abdomen and pelvis. No oral contrast utilized, per emergency room physician request No IV contrast utilized, per referring physician request due to renal insufficiency.. Multiplanar reconstructions were generated. Total dose length product 499 mGycm. CTDIvol(s) 8 mGy. Dose reduction achieved using automated exposure control Comparison: 05/14/2018 Findings: Interim development of extensive soft tissue gas within the right perineum. There is marked swelling of the right labia majora. Soft tissue gas extends anteriorly and cephalad along the anterior lower pelvic wall to the right of midline. There is some inflammation of the soft tissues. There may be a small amount of fluid or phlegmon at the most inferior portion of the labrum, although an organized rim-enhancing fluid collection is not demonstrated. There is minimal rectal distention by feces. There is no evidence of colonic diverticulosis or diverticulitis. The appendix is not definitely demonstrated, but no findings to suggest acute appendicitis are evident. No small bowel distention. No free or loculated intraperitoneal gas or fluid is evident. The distal esophagus, stomach, duodenum are unremarkable except for minimal sliding-type hiatal hernia. Lack of IV contrast limits assessment of the solid organs. The liver, gallbladder, bile ducts, pancreas, spleen, adrenals, kidneys are unremarkable. The bladder is distended. The bladder contents are slightly higher in attenuation than on the previous study, measuring between 10 and 15 Hounsfield units. The bones are unremarkable. The posterior right paracentral bladder mass described on the prior study is not evident currently. The uterus is absent. No pelvic mass or adenopathy. Included lung bases demonstrate diffuse mild groundglass opacity, not evident previously. There is some pericardial fluid. Impression: Extensive soft tissue gas within the right perineum, labia majora, and anterior right lower pelvic wall, indicating likely infection with a gas-forming organism. There is a small amount of phlegmon at the into extent but no definite discrete abscess. Distended bladder. Mildly increased attenuation of the bladder contents, of uncertain significance but could indicate bloody urine. Correlate with clinical findings Previously demonstrated right paracentral bladder mass is not evident currently. There may been transient but could also still be present but obscured by the surrounding high attenuation urine. Correlate with any prior workup of that lesion Basilar mild pulmonary parenchymal groundglass opacity, probably due to atelectatic changes, could indicate a component of mild pulmonary edema Minimal sliding-type hiatal hernia Evidence of prior hysterectomy The CT scanner at [facility] is accredited by the [employer] and the scans are performed using protocols designed to limit radiation exposure to as low as reasonably achievable to attain images of sufficient resolution adequate for diagnostic evaluation.
[2020-01-16 22:00] VITALS: BP 146/52
[2020-01-16 23:30] VITALS: BP 136/61
--- NOTE | 2020-01-16 23:52 | Pre-Procedure Note/Attestation ---
Pre-Procedure Note/Attestation Complete Prior to Procedure Planned Procedure: right Procedure Narrative: extensive debridement of right perineum and labia major Indications for Procedure Pre-Operative Diagnosis: right wilian syndrome Attestation I attest that I discussed the nature of the procedure; its benefits; risks and complications; and alternatives (and the risks and benefits of such alternatives ), prior to the procedure, with the patient (or the patient's legal farm loan representative). I attest that, if there was a reasonable possibility of needing a blood transfusion, the patient (or the patient's legal farm loan representative) was given the [facility] standardized written summary, pursuant to the [place] Blood Safety Act ([place] Health and Safety Code # 1645, as amended). I attest that I re-evaluated the patient just prior to the surgery and that there has been no change in the patient's H&P, except as documented below: Daren Vivas MD Jan 16, 2020 23:52
[2020-01-17] VITALS (29 sets, daily range): BP systolic 107–169; BP diastolic 37–145
[2020-01-17] MEDS ORDERED: Bupivacaine 0.25% Inj 30ml INJ ONE (00:22)
[2020-01-17] MEDS ORDERED: Bacitracin Oint 15gm Tube TOPIC ONE (00:22)
[2020-01-17] MEDS ORDERED: NeoSporin Gu Irrig 1ml Amp IRRIG ONE (00:23)
[2020-01-17] MEDS ORDERED: Bacitracin 50000 Units Vial ONE (00:23)
--- NOTE | 2020-01-17 00:26 | Anethesia Preoperative Eval ---
Anesthesia Pre-op PMH/ROS General Date of Evaluation: Jan 17, 2020 Time of Evaluation: 00:31 Anesthesiologist: Leeanne ASA Score: ASA 3 - Emergency Mallampati Score Class I : Soft palate, uvula, fauces, pillars visible Class II: Soft palate, uvula, fauces visible Class III: Soft palate, base of uvula visible Class IV: Only hard plate visible Mallampati Classification: Class II Surgeon: Ortega Diagnosis: Necrotizing Fascitis Vulva Surgical Procedure: I&D Vulva Anesthesia History: none Family History: no anesthesia problems Allergies: Coded Allergies: ASPIRIN (Verified Allergy, Unknown, 09/26/16) METFORMIN (Verified Allergy, Unknown, 09/26/16) Medications: see eMAR Patient NPO?: Yes Past Medical History Cardiovascular: Reports: HTN Endocrine: Reports: DM Hematology/Immune: Reports: other - Sepsis Anesthesia Pre-op Phys. Exam Physician Exam Last Vital Signs Date Time Temp Pulse Resp B/P (MAP) Pulse Ox O2 Delivery O2 Flow Rate FiO2 01/16/20 23:30 98.8 84 15 136/61 97 Room Air Constitutional: NAD Neurologic: CN 2-12 intact Cardiovascular: RRR Respiratory: CTA Gastrointestinal: S/NT/ND Airway Exam Mallampati Score: Class II MO: limited ROM: limited Teeth: missing, intact Anesthesia Pre-op A/P Labs Hematology Test 01/16/20 18:20 White Blood Count 30.2 K/UL (4.8-10.8) *H Red Blood Count 4.67 M/UL (4.20-5.40) Hemoglobin 14.4 G/DL (12.0-16.0) Hematocrit 43.4 % (37.0-47.0) Mean Corpuscular Volume 93 FL (80-99) Mean Corpuscular Hemoglobin 30.8 PG (27.0-31.0) Mean Corpuscular Hemoglobin Concent 33.2 G/DL (32.0-36.0) Red Cell Distribution Width 12.8 % (11.6-14.8) Platelet Count 404 K/UL (150-450) Mean Platelet Volume 7.5 FL (6.5-10.1) Neutrophils (%) (Auto) % (45.0-75.0) Lymphocytes (%) (Auto) % (20.0-45.0) Monocytes (%) (Auto) % (1.0-10.0) Eosinophils (%) (Auto) % (0.0-3.0) Basophils (%) (Auto) % (0.0-2.0) Differential Total Cells Counted 100 Neutrophils % (Manual) 80 % (45-75) H Lymphocytes % (Manual) 10 % (20-45) L Monocytes % (Manual) 4 % (1-10) Eosinophils % (Manual) 0 % (0-3) Basophils % (Manual) 0 % (0-2) Band Neutrophils 6 % (0-8) Platelet Estimate Adequate Platelet Morphology Normal Red Blood Cell Morphology Normal Chemistry Test 01/16/20 19:40 01/16/20 21:35 Sodium Level 141 MMOL/L (136-145) Potassium Level 3.5 MMOL/L (3.5-5.1) Chloride Level 106 MMOL/L (98-107) Carbon Dioxide Level 15 MMOL/L (21-32) L Anion Gap 20 mmol/L (5-15) H Blood Urea Nitrogen 43 mg/dL (7-18) H Creatinine 1.7 MG/DL (0.55-1.30) H Estimat Glomerular Filtration Rate 36.4 mL/min (>60) Glucose Level 493 MG/DL (74-106) H Lactic Acid Level 2.30 mmol/L (0.4-2.0) H 2.30 mmol/L (0.66-2.22) H Calcium Level 7.1 MG/DL (8.5-10.1) L Total Bilirubin 0.4 MG/DL (0.2-1.0) Aspartate Amino Transf (AST/SGOT) 12 U/L (15-37) L Alanine Aminotransferase (ALT/SGPT) 12 U/L (12-78) Alkaline Phosphatase 182 U/L (46-116) H Total Protein 5.5 G/DL (6.4-8.2) L Albumin 1.7 G/DL (3.4-5.0) L Globulin 3.8 g/dL Albumin/Globulin Ratio 0.4 (1.0-2.7) L Lipase 93 U/L (73-393) Risk Assessment & Plan Assessment: ASA 3E Plan: GA, SED Status Change Before Surgery: No Pre-Antibiotics Drug: Given In ER Given Within 1 Hr of Incision: Yes Alvarado Fallon MD Jan 17, 2020 00:26
[2020-01-17] MEDS ORDERED: Sterile Water Irrig 1000ml IRRIG ONE (00:30)
--- NOTE | 2020-01-17 00:30 | 48 Hour Post Anesthesia Eval ---
Post Anesthesia Evaluation Procedure: I&D Vulva Date of Evaluation: Jan 17, 2020 Time of Evaluation: 04:43 Blood Pressure Systolic: 138 0: 64 Pulse Rate: 91 Respiratory Rate: 18 Temperature (Fahrenheit): 99 O2 Sat by Pulse Oximetry: 100 Airway: patent Nausea: No Vomiting: No Pain Intensity: 2 Hydration Status: adequate Cardiopulmonary Status: Stable Mental Status/LOC: patient returned to baseline Follow-up Care/Observations: 0 Post-Anesthesia Complications: 0 Follow-up care needed: N/A Alvarado Fallon MD Jan 17, 2020 00:30
--- NOTE | 2020-01-17 00:30 | Immediate Post-Op Evaluation ---
Immediate Post-Op Evalulation Immediate Post-Op Evalulation Procedure: I&D Vulva Date of Evaluation: Jan 17, 2020 Time of Evaluation: 02:22 IV Fluids: 1000 lr Blood Products: 0 Estimated Blood Loss: 75 Urinary Output: 500 Blood Pressure Systolic: 142 Blood Pressure Diastolic: 67 Pulse Rate: 92 Respiratory Rate: 16 O2 Sat by Pulse Oximetry: 100 Temperature (Fahrenheit): 99 Pain Score (1-10): 2 Nausea: No Vomiting: No Complications 0 Patient Status: awake, reacts, patent, none Hydration Status: adequate Drug: Given in ER Given Within 1 Hr of Incision: Yes Alvarado Fallon MD Jan 17, 2020 00:30
[2020-01-17] MEDS ORDERED: Propofol 200mg/20ml IV ONE (00:37)
[2020-01-17] MEDS ORDERED: Sodium Chloride 10ml vial INJ ONE (00:37)
[2020-01-17] MEDS ORDERED: Lidocaine 1% MPF 10mg/ml 5ml ONE (00:37)
[2020-01-17] MEDS ORDERED: Ketamine 500mg/10ml vial ONE (00:38)
[2020-01-17] MEDS ORDERED: fentaNYL 100 mcg/2 mL IV ONE (00:38)
[2020-01-17] MEDS ORDERED: Midazolam 2mg/2ml Inj ONE (00:38)
[2020-01-17] MEDS ORDERED: NS Irrig 1000ml IRRIG ONE (01:32)
[2020-01-17] MEDS ORDERED: D5 1/2NS w/KCl 20mEq 1,000 ML IV SCH (01:50)
--- NOTE | 2020-01-17 01:50 | Brief Operative Note ---
Immediate Post Operative Note Operative Note Pre-op Diagnosis: right wilian syndrome vs abscess of labia major Procedure: I &d Of perineum and extensive debridement Post-op Diagnosis: Abscess of right labia major Surgeon: Sydnie Scoop Filler: none Additional Surgeons: Dr. Pan Anesthesia: general Specimen: yes Complications: none Condition: stable Fluids: Per anesthesiologist Estimated Blood Loss: volume - 50 ml Packing: Betadine soaked Kerlix roll Implant(s) used?: No Daren Vivas MD Jan 17, 2020 01:50
[2020-01-17] MEDS ORDERED: Hydromorphone 0.5mg/0.5ml inj IVP PRN (02:00)
[2020-01-17] MEDS ORDERED: Zolpidem 5mg tab ORAL PRN (02:00)
[2020-01-17] MEDS ORDERED: Zosyn 3.375gm inj ONE (02:26)
[2020-01-17] MEDS ORDERED: D5 1/2NS w/KCl 20mEq 1,000 ML IV ONE (02:27)
--- NOTE | 2020-01-17 02:45 | Consultation ---
DATE OF CONSULTATION: 01/16/2020 PREOPERATIVE CONSULTATION CONSULTING PHYSICIAN: Daren Vivas M.D. REASON FOR CONSULTATION: Swelling and pain at the right perineum. HISTORY OF PRESENT ILLNESS: This is a 69-year-old female, who presented to the emergency room for pain and swelling at the right side of the perineum and falling down. The patient does not answer very appropriately and I am not sure if it is due to sepsis or the patient is slow to respond from the very beginning. I talked to her sister who lives with her and she stated that the patient has fallen down four times today and apparently she did not have any appetite. She denied any fever, but stated that she has been having pain at the right side of the genital area for about a week and a week ago she has been taken to a doctor who has made the diagnosis of the infection and supplied her with antibiotics, but apparently the medicine did not work and swelling and pain increased. There is no history of drainage, but the sister said that she has been having severe diarrhea in the last one or two days. There is no vomiting and apparently there is no urinary symptoms. PAST MEDICAL HISTORY: She denies allergies, asthma, hypertension, cardiac and renal diseases. She has a history of diabetes. PAST SURGICAL HISTORY: She has had exploratory laparotomy for bowel obstruction in 1964. MEDICATIONS: Please see the medicine reconciliation form. SOCIAL HISTORY: The patient is a 69-year-old female, single without any children. She is retired. Denies smoking and drinking. REVIEW OF SYSTEMS: Unobtainable as the patient does not answer appropriately. PHYSICAL EXAMINATION: GENERAL: The patient appeared to be a well-developed and well-nourished, moderately obese 69-year-old female, lying on the bed complaining of pain on the right side of the genital area. HEENT: Head is normocephalic and atraumatic. Eyes, pupils are equal, round, and reactive to light. Mouth is clear, but eight dentures. NECK: There is no palpable thyromegaly or adenopathy. CHEST: Clear to auscultation and percussion. HEART: Tachycardic, but there is no gallop or murmur. ABDOMEN: Moderately obese, soft. There is no palpable organomegaly, but she has a scar of the midline incision from xiphoid to pubis. GENITOURINARY: Perineum, she has severe swelling and tenderness of the labia majora extending cephalad and caudal. EXTREMITIES: Within normal limits. LABORATORY DATA: CBC has shown WBC of 30,200 with a left shift 6% bands. Chemistry has shown blood glucose of 493, creatinine of 1.7, and alkaline phosphatase at 182. Urine is normal. CAT scan of the pelvis and abdomen has been interpreted as compatible with necrotizing fasciitis. It has shown swelling, edema of the labia majora and the right perineum with the gas extending up to the pelvic rim. 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 PLAN: The patient is septic and she requires an emergency and extensive debridement of the infected area. This has been explained to the patient and her sister. Draen Vivas M.D. DR: FRANCY JOB#: [id number] CC:
[2020-01-17] MEDS: Piperacillin/Tazobactam 3.375 GM in NS 110 ML IVPB SCH ×3 (03:00→17:26)
[2020-01-17] MEDS: HYDROmorphone 1mg/ml Carpuject IVP PRN ×2 (03:47→22:01)
--- NOTE | 2020-01-17 04:30 | Operative Note - Dictated ---
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 POSTOPERATIVE DIAGNOSIS: Extensive abscess of the right labia majora. OPERATION: Incision and drainage of the abscess with extensive debridement. COMPLICATIONS: None. SURGEON: Daren Vivas M.D. PRINCIPAL SOFTWARE ENGINEER: None. ANESTHESIA: General with laryngeal mask. ANESTHESIOLOGIST: Alvarado Fallon M.D. INDICATION: This is a 69-year-old female, who presented with pain and swelling at the right side of the perineum. Apparently, she has had it for over a week and it has gradually increased. On admission to the emergency room, she appeared to be septic and her sister stated that before the admission to the hospital, the patient fell down four times. Physical examination showed a very large swelling of the labia majora, which extended towards the rectum and towards the pubis and it had a very foul smell. It seemed that there was drainage from the lateral side of this swelling. CBC showed a WBC of 30,000 with a left shift including 6% band and her blood glucose was 490. A CAT scan showed air bubbles in the right side of the perineum. DESCRIPTION OF PROCEDURE: The patient was placed supine on the operating table and after general anesthesia with laryngeal mask, she was placed in lithotomy position and the perineum was properly prepped and draped. Exploration was performed, which showed two small openings on the lateral side of the labia majora from which pus was draining. A culture was obtained and then the opening were probed and then it was opened up with a vertical incision and this incision covered the whole length of the labia majora and it was noticed that the patient had a very large cavity full of pus with a foul smell and brownish olvera color. The pus was drained and it was noticed that the patient had a large amount of infected necrotic tissue and extensive debridement was performed and the major part of the infected necrotic tissue was removed and the part of the skin of the labia majora was removed. Finally, a very large cavity was left, which was about 15 cm in length and about 6 to 7 cm in width and it was deep to the bone and the fascia. All the bleeding points were controlled. This cavity was completely incorporated with the help of the Bovie and then the cavity was irrigated with antibiotic solution and then it was packed with Kerlix roll soaked in Betadine. The patient tolerated the procedure well and was transferred to the ICU and extubated. The sponge and needle count were correct. Estimated blood loss 50 mL. Condition of the patient at the end of procedure is stable. Daren Vivas M.D. DR: CAMILLA JOB#: [id number] CC:
[2020-01-17 05:29] LABS: HEMATOCRIT 34.1 % (37.0-47.0); HEMOGLOBIN 11.4 G/DL (12.0-16.0); MEAN CORPUSCULAR VOLUME 93 FL (80-99); PLATELET COUNT 329 K/UL (150-450); RED BLOOD COUNT 3.66 M/UL (4.20-5.40); RED CELL DISTRIBUTION WIDTH 12.6 % (11.6-14.8)
[2020-01-17 05:40] LABS: WHITE BLOOD COUNT 31.6 K/UL (4.8-10.8)
[2020-01-17 05:42] LABS: ALANINE AMINOTRANSFERASE 15 U/L (12-78); ALBUMIN 2.1 G/DL (3.4-5.0); ALBUMIN/GLOBULIN RATIO 0.4 (1.0-2.7); ALKALINE PHOSPHATASE 214 U/L (46-116); ANION GAP 17 mmol/L (5-15); ASPARTATE AMINO TRANSFERASE 14 U/L (15-37); BILIRUBIN,TOTAL 0.5 MG/DL (0.2-1.0); BLOOD UREA NITROGEN 52 mg/dL (7-18); CALCIUM 8.9 MG/DL (8.5-10.1); CARBON DIOXIDE 19 MMOL/L (21-32); CHLORIDE 101 MMOL/L (98-107); CREATININE 2.1 MG/DL (0.55-1.30); POTASSIUM 4.5 MMOL/L (3.5-5.1); SODIUM 137 MMOL/L (136-145)
[2020-01-17] MEDS: NovoLOG Insulin Flexpen SUBQ SCH ×4 (05:59→21:01)
[2020-01-17] MEDS ORDERED: NovoLOG Insulin Flexpen SUBQ SCH (06:30)
[2020-01-17] MEDS ORDERED: LR 1000ml ONE (06:30)
[2020-01-17] MEDS: Vancomycin 1 GM in NS 275 ML IVPB SCH (09:01)
--- NOTE | 2020-01-17 14:23 | Diagnostic Imaging Report ---
Indication: Lower extremity pain and edema Technique: Grayscale and duplex images of the bilateral lower extremity veins Comparison: , Findings: Bilaterally, grayscale and duplex images demonstrate no evidence of intraluminal thrombus. Normal phasic Doppler waveforms, demonstrating normal augmentation response and no evidence of valvular insufficiency. Greater saphenous vein(s) and tibial veins are patent. Normal compressibility. Impression: Negative for evidence of lower extremity deep venous thrombosis bilaterally
[2020-01-17] MEDS: Dakin's 0.25% (Half Strength) 16oz TOPIC SCH (17:26)
--- NOTE | 2020-01-17 18:14 | History and Physical Report ---
DATE OF ADMISSION: 01/17/2020 REASON FOR ADMISSION: Extensive abscess of right labia majora, status post incision and drainage. HISTORY OF PRESENT ILLNESS: This is a 69-year-old female presenting with pain and swelling on the right side of the perineum. The patient with worsening symptoms over the past one week. The patient appeared to be septic and was brought into the OR for incision and drainage of the abscess. The patient also noted elevated white cell count, left shift. A CT scan showed air in the right side of the perineum. The patient is postoperative at this time. The patient's care discussed and reviewed. The patient does have underlying history of diabetes. PAST MEDICAL HISTORY: Notable for diabetes, hypertension, and Benoit's palsy. MEDICATIONS: Reviewed. ALLERGIES: Reviewed. REVIEW OF SYSTEMS: Otherwise as above. FAMILY HISTORY: Noncontributory to the above. PHYSICAL EXAMINATION: GENERAL: A well-developed female, still appears to be ill. VITAL SIGNS: Reviewed. Blood pressure 115/52 and heart rate 82. The patient is currently afebrile. HEENT: Negative. NECK: Supple. No adenopathy. LUNGS: With moderate breath sounds. CARDIAC: S1 and S2. Slightly tachycardic. ABDOMEN: Overall soft. EXTREMITIES: No edema. Dressing in place. LABORATORY DATA: Reviewed. White cell count 31.6, BUN 52, creatinine 2.1, and albumin is 2.1. IMPRESSION: Extensive abscess around labia majora, status post incision and drainage of the abscess with extensive debridement, leukocytosis, possible sepsis, severe protein-calorie malnutrition, possible chronic renal failure, and diabetes poorly controlled. RECOMMENDATIONS: Supportive care. Monitor blood sugars. IV hydration and follow up with surgery. Empiric Antibiotics for now. Infectious Diseases evaluation and followup. Follow up laboratories and exam. Pain control and close ICU management recommended. Fernando Frank M.D. DR: Darren JOB#: [id number] CC: TARA
[2020-01-17] MEDS: Levemir Flexpen SUBQ SCH (18:21)
[2020-01-18] VITALS (25 sets, daily range): BP systolic 86–159; BP diastolic 40–107
[2020-01-18] MEDS: Piperacillin/Tazobactam 3.375 GM in NS 110 ML IVPB SCH ×3 (02:00→17:55)
[2020-01-18 05:35] LABS: HEMATOCRIT 32.9 % (37.0-47.0); HEMOGLOBIN 11.1 G/DL (12.0-16.0); MEAN CORPUSCULAR VOLUME 92 FL (80-99); PLATELET COUNT 309 K/UL (150-450); RED BLOOD COUNT 3.56 M/UL (4.20-5.40); RED CELL DISTRIBUTION WIDTH 13.3 % (11.6-14.8)
[2020-01-18 05:45] LABS: WHITE BLOOD COUNT 26.8 K/UL (4.8-10.8)
[2020-01-18 05:58] LABS: ANION GAP 10 mmol/L (5-15); BLOOD UREA NITROGEN 39 mg/dL (7-18); CALCIUM 9.3 MG/DL (8.5-10.1); CARBON DIOXIDE 25 MMOL/L (21-32); CHLORIDE 109 MMOL/L (98-107); CREATININE 1.7 MG/DL (0.55-1.30); POTASSIUM 4.3 MMOL/L (3.5-5.1); SODIUM 143 MMOL/L (136-145)
[2020-01-18] MEDS: NovoLOG Insulin Flexpen SUBQ SCH ×4 (05:59→20:27)
[2020-01-18] MEDS: Vancomycin 1 GM in NS 275 ML IVPB SCH (09:03)
[2020-01-18] MEDS: Levemir Flexpen SUBQ SCH ×2 (09:04→20:28)
[2020-01-18] MEDS: Dakin's 0.25% (Half Strength) 16oz TOPIC SCH ×2 (09:04→17:55)
[2020-01-18] MEDS: HYDROmorphone 1mg/ml Carpuject IVP PRN (10:23)
--- NOTE | 2020-01-18 12:29 | General Surgery Progress Note ---
General Surgery-Progress Note Subjective Procedure Performed I &d Of perineum and extensive debridement Symptoms: improved Objective Last 24 Hour Vital Signs Date Time Temp Pulse Resp B/P (MAP) Pulse Ox O2 Delivery O2 Flow Rate FiO2 01/18/20 12:00 Nasal Cannula 2.0 01/18/20 11:00 77 12 86/44 (58) 99 01/18/20 10:57 98.5 01/18/20 10:00 86 17 119/63 (81) 100 01/18/20 09:00 80 11 123/51 (75) 100 01/18/20 08:00 98.5 80 16 103/70 (81) 100 01/18/20 08:00 Nasal Cannula 2.0 01/18/20 08:00 79 01/18/20 07:00 76 11 127/54 (78) 100 01/18/20 06:00 85 6 131/107 (115) 100 01/18/20 05:00 78 10 131/49 (76) 100 01/18/20 04:00 Nasal Cannula 2.0 01/18/20 04:00 98.5 86 12 101/42 (61) 99 01/18/20 04:00 75 01/18/20 03:00 77 11 114/47 (69) 99 01/18/20 02:00 86 13 113/55 (74) 99 01/18/20 01:00 78 12 111/72 (85) 99 01/18/20 00:00 81 01/18/20 00:00 99.0 78 11 109/61 (77) 98 01/18/20 00:00 Nasal Cannula 2.0 01/17/20 23:00 83 12 115/55 (75) 97 01/17/20 22:00 86 17 147/86 (106) 100 01/17/20 21:00 82 18 111/85 (94) 97 01/17/20 20:00 99.4 78 17 123/41 (68) 99 01/17/20 20:00 Nasal Cannula 2.0 01/17/20 20:00 85 01/17/20 19:00 80 14 107/37 (60) 99 01/17/20 18:00 82 14 119/56 (77) 99 01/17/20 17:00 85 14 143/73 (96) 99 01/17/20 16:00 82 01/17/20 16:00 Nasal Cannula 2.0 01/17/20 16:00 88 16 115/52 (73) 94 01/17/20 16:00 98.5 82 12 141/49 (79) 100 01/17/20 15:25 81 01/17/20 15:00 82 12 141/49 (79) 100 01/17/20 14:00 79 13 132/48 (76) 100 01/17/20 13:00 86 12 130/45 (73) 100 I&O Intake and Output 01/17/20 01/18/20 19:00 07:00 Intake Total 1747.000 ml 1080 ml Output Total 955 ml 575 ml Balance 792.000 ml 505 ml Intake Oral 240 ml 480 ml IV Total 1507.000 ml 600 ml Output Urine Total 955 ml 575 ml Dressing: dry Wound: other - cavity open no drainage Respiratory: clear Abdomen: soft, non-tender Extremities: no edema Laboratory Tests Test 01/18/20 03:55 White Blood Count 26.8 K/UL (4.8-10.8) *H Red Blood Count 3.56 M/UL (4.20-5.40) L Hemoglobin 11.1 G/DL (12.0-16.0) L Hematocrit 32.9 % (37.0-47.0) L Mean Corpuscular Volume 92 FL (80-99) Mean Corpuscular Hemoglobin 31.0 PG (27.0-31.0) Mean Corpuscular Hemoglobin Concent 33.6 G/DL (32.0-36.0) Red Cell Distribution Width 13.3 % (11.6-14.8) Platelet Count 309 K/UL (150-450) Mean Platelet Volume 7.3 FL (6.5-10.1) Neutrophils (%) (Auto) % (45.0-75.0) Lymphocytes (%) (Auto) % (20.0-45.0) Monocytes (%) (Auto) % (1.0-10.0) Eosinophils (%) (Auto) % (0.0-3.0) Basophils (%) (Auto) % (0.0-2.0) Differential Total Cells Counted 100 Neutrophils % (Manual) 83 % (45-75) H Lymphocytes % (Manual) 12 % (20-45) L Monocytes % (Manual) 3 % (1-10) Eosinophils % (Manual) 1 % (0-3) Basophils % (Manual) 0 % (0-2) Band Neutrophils 1 % (0-8) Platelet Estimate Adequate Platelet Morphology Normal Hypochromasia 1+ Sodium Level 143 MMOL/L (136-145) Potassium Level 4.3 MMOL/L (3.5-5.1) Chloride Level 109 MMOL/L (98-107) H Carbon Dioxide Level 25 MMOL/L (21-32) Anion Gap 10 mmol/L (5-15) Blood Urea Nitrogen 39 mg/dL (7-18) H Creatinine 1.7 MG/DL (0.55-1.30) H Estimat Glomerular Filtration Rate 36.4 mL/min (>60) Glucose Level 321 MG/DL (74-106) #H Calcium Level 9.3 MG/DL (8.5-10.1) Assessment Post-op Diagnosis Abscess of right labia major Plan Additional Comments continue current treatment Daren Vivas MD Jan 18, 2020 12:29
[2020-01-18] MEDS ORDERED: traMADol 50mg tab ORAL PRN (12:33)
[2020-01-18] MEDS ORDERED: Hydromorphone 0.5mg/0.5ml inj IVP PRN (12:45)
[2020-01-18] MEDS ORDERED: NS 500ML ONE ×2 (14:23)
[2020-01-18] MEDS ORDERED: 1/2 NS 1000ml IV ONE (14:23)
[2020-01-18] MEDS ORDERED: NS 275ml ONE (14:23)
[2020-01-18] MEDS ORDERED: Tubing IV Secondary IV ONE ×2 (14:23)
[2020-01-18] MEDS ORDERED: NS 250 ML IVPB ONE (14:32)
[2020-01-18] MEDS ORDERED: Sodium Chloride 550 ML IV ONE (16:15)
--- NOTE | 2020-01-18 16:37 | Pulmonolgy Critical Care Note ---
Critical Care - Asmt/Plan Assessment/Plan: Pulmonary CCM Progress Note HPI: Patient is a 69-year-old female presenting with pain and swelling on the right side of the perineum, worsening symptoms over the past one week. The patient is s/p Incision and Drainage of the right Perineal abscess CT scan showed air in the right side of the perineum. The patient is postoperative at this time. The patient's care discussed and reviewed. The patient does have underlying history of diabetes. PAST MEDICAL HISTORY: Notable for diabetes, hypertension, and Benoit's palsy. MEDICATIONS: Reviewed. ALLERGIES: Reviewed. REVIEW OF SYSTEMS: Otherwise as above. FAMILY HISTORY: Noncontributory to the above. PHYSICAL EXAMINATION: GENERAL: A well-developed female, feels improved VITAL SIGNS NOTED: . HEENT: Negative. NECK: Supple. No adenopathy. LUNGS: With moderate breath sounds. CARDIAC: S1 and S2. Slightly tachycardic. SBP 99 ABDOMEN: Overall soft. EXTREMITIES: No edema. Dressing in place. No edema ARCHITECTURE PROFESSOR: Intact LABORATORY DATA NOTED: IMPRESSION: Diabetes Mellitus, right perineal abscess, status post incision and drainage of the abscess with extensive debridement, leukocytosis, possible sepsis, severe protein-calorie malnutrition, possible chronic renal failure, and diabetes poorly controlled. RECOMMENDATIONS: Supportive care. Monitor blood sugars. ISS. IV hydration Management by surgery. Pressors PRN. Empiric Antibiotics for now. Infectious Diseases evaluation and followup. Follow up laboratories and exam. Pain control and close ICU management recommended. Critical Care - Objective Last 24 Hour Vital Signs Date Time Temp Pulse Resp B/P (MAP) Pulse Ox O2 Delivery O2 Flow Rate FiO2 01/18/20 16:00 Nasal Cannula 2.0 01/18/20 16:00 98.3 78 10 116/58 (77) 100 01/18/20 15:00 74 10 108/45 (66) 100 01/18/20 14:06 74 12 99/46 (63) 97 01/18/20 13:00 74 9 96/45 (62) 97 01/18/20 12:00 76 01/18/20 12:00 Nasal Cannula 2.0 01/18/20 12:00 98.2 75 9 96/62 (73) 100 01/18/20 11:00 77 12 86/44 (58) 99 01/18/20 10:57 98.5 01/18/20 10:00 86 17 119/63 (81) 100 01/18/20 09:55 97 Nasal Cannula 2.0 28 01/18/20 09:00 80 11 123/51 (75) 100 01/18/20 08:00 98.5 80 16 103/70 (81) 100 01/18/20 08:00 Nasal Cannula 2.0 01/18/20 08:00 79 01/18/20 07:00 76 11 127/54 (78) 100 01/18/20 06:00 85 6 131/107 (115) 100 01/18/20 05:00 78 10 131/49 (76) 100 01/18/20 04:00 Nasal Cannula 2.0 01/18/20 04:00 98.5 86 12 101/42 (61) 99 01/18/20 04:00 75 01/18/20 03:00 77 11 114/47 (69) 99 01/18/20 02:00 86 13 113/55 (74) 99 01/18/20 01:00 78 12 111/72 (85) 99 01/18/20 00:00 81 01/18/20 00:00 99.0 78 11 109/61 (77) 98 01/18/20 00:00 Nasal Cannula 2.0 01/17/20 23:00 83 12 115/55 (75) 97 01/17/20 22:00 86 17 147/86 (106) 100 01/17/20 21:00 82 18 111/85 (94) 97 01/17/20 20:00 99.4 78 17 123/41 (68) 99 01/17/20 20:00 Nasal Cannula 2.0 01/17/20 20:00 85 01/17/20 19:00 80 14 107/37 (60) 99 01/17/20 18:00 82 14 119/56 (77) 99 01/17/20 17:00 85 14 143/73 (96) 99 Micro: Microbiology Date/Time Source Procedure Growth Status 01/16/20 19:40 Blood Blood Culture - Preliminary Streptococcus Species Resulted 01/16/20 19:27 Blood Blood Culture - Preliminary Resulted 01/17/20 01:15 Other Gram Stain - Final Resulted 01/17/20 01:15 Aerobic Culture - Preliminary Gram Negative Bacillus 1 Resulted 01/17/20 01:15 Other Anaerobic Culture Pending Resulted Accucheck: 280 Critical Care - Subjective ROS Limited/Unobtainable: No Condition: critical FI02: 28 I&O: Intake and Output 01/17/20 01/18/20 19:00 07:00 Intake Total 1747.000 ml 1080 ml Output Total 955 ml 575 ml Balance 792.000 ml 505 ml Intake Oral 240 ml 480 ml IV Total 1507.000 ml 600 ml Output Urine Total 955 ml 575 ml Yonatan Hays MD Jan 18, 2020 16:37
[2020-01-18] MEDS ORDERED: Dyna-Hex 2% Top Sol 2oz TOPIC SCH (20:00)
--- NOTE | 2020-01-18 23:29 | Consultation ---
DATE OF CONSULTATION: 01/18/2020 INFECTIOUS DISEASES CONSULTATION CONSULTING PHYSICIAN: Urbano Quiroz M.D. REFERRING PHYSICIAN: Fernando Frank M.D. REASON FOR CONSULTATION: Right labial abscess. HISTORY OF PRESENTING ILLNESS: This is a 69-year-old lady with history of diabetes, hypertension, Benoit's palsy, who came in with pain, swelling on the right side of the perineum. A CT showed hair in the right side of the perineum. She was noticed to have a leukocytosis. She underwent incision and drainage with extensive debridement for an abscess and right Michael's syndrome. An Infectious Diseases consultation has been obtained for antibiotics. PAST MEDICAL HISTORY: 1. History of diabetes. 2. Hypertension. 3. Benoit's palsy. SOCIAL HISTORY: She is a smoker. She does not drink or use drugs. FAMILY HISTORY: Noncontributory. REVIEW OF SYSTEMS: RESPIRATORY: No fever, chills, cough, shortness of breath or chest pain. CARDIAC: No chest pain. No palpitation. No dizziness. No syncope. GASTROINTESTINAL: No nausea. No vomiting. She does have pain. No diarrhea. MEDICATIONS: As an inpatient, she is on insulin, Protonix, IV vancomycin, Dilaudid, Tylenol, Zofran, Ambien, and Zosyn. ALLERGIES: 1. Aspirin. 2. Metformin. PHYSICAL EXAMINATION: VITAL SIGNS: Temperature of 98.5, T-max of 99.4, pulse of 86, respiratory rate of 17, blood pressure 119/63, O2 saturation of 100%. HEENT: Pupils equally reactive to light and accommodation. Mouth appears clean without thrush. NECK: Supple. No adenopathy. No JVD. CARDIOVASCULAR: Regular rate and rhythm. No murmurs. LUNGS: Clear to auscultation bilaterally. No crackles. No wheezes. ABDOMEN: Soft and nontender. Right perineum is in dressing. EXTREMITIES: No cyanosis, no clubbing, no edema. LABORATORY AND DIAGNOSTIC DATA: White count of 31.6 yesterday, white count of 26.8 today, hemoglobin 11.1, hematocrit 32.9, MCV 92, platelet count of 309, neutrophils of 83%. Sodium 143, potassium 4.3, chloride 109, bicarb 25, BUN 39, creatinine 1.7, glucose 321, calcium 9.3. Total bilirubin 0.5. . Lipase of 93. Total bilirubin 0.4. AST 12, ALT 12, and alkaline phosphatase 182. Total protein 5.5. Albumin 1.7. UA is showing 0 to 2 white cells. Blood culture growing Streptococcus species. Abdominal culture showing gram-negative rods. CT abdomen and pelvis showing extensive soft tissue gas within the right perineum, labia majora, and anterior right lower pelvic wall indicating likely infection with gas-forming organism. Small amount of phlegmon, but no discrete abscess is noted. Right paracentral bladder mass is not evident. Basilar mild pulmonary parenchymal ground-glass opacity due to atelectasis, minimal sliding-type hiatal hernia, prior hysterectomy noted. Ultrasound of legs showed no evidence of DVT. ASSESSMENT: This is a 69-year-old lady with history of diabetes, hypertension, who comes in with pain and swelling on the right side of the perineum and has: 1. Right perineal abscess. She has undergone incision and drainage. Culture showing gram-negative rods. 2. Streptococcus sepsis. 3. Leukocytosis is improving. 4. Diabetes. 5. Hypertension. PLAN: 1. Continue IV vancomycin and Zosyn. 2. We will order a 2D echocardiogram. 3. We will follow up cultures and adjust antibiotics accordingly. I would like to thank, Dr. Frank for this consultation. Urbano Quiroz M.D. DR: STEFFANY JOB#: [id number] CC: Fernando Frank M.D.; Fax#: [phone]
[2020-01-19] VITALS (14 sets, daily range): BP systolic 106–153; BP diastolic 44–99
[2020-01-19] MEDS: Piperacillin/Tazobactam 3.375 GM in NS 110 ML IVPB SCH ×3 (01:26→17:30)
[2020-01-19 05:09] LABS: HEMATOCRIT 31.7 % (37.0-47.0); HEMOGLOBIN 10.6 G/DL (12.0-16.0); MEAN CORPUSCULAR VOLUME 93 FL (80-99); PLATELET COUNT 294 K/UL (150-450); RED BLOOD COUNT 3.41 M/UL (4.20-5.40); RED CELL DISTRIBUTION WIDTH 13.3 % (11.6-14.8); WHITE BLOOD COUNT 18.8 K/UL (4.8-10.8)
[2020-01-19] MEDS: NovoLOG Insulin Flexpen SUBQ SCH ×4 (06:03→20:53)
[2020-01-19 06:06] LABS: ANION GAP 9 mmol/L (5-15); BLOOD UREA NITROGEN 34 mg/dL (7-18); CALCIUM 9.4 MG/DL (8.5-10.1); CARBON DIOXIDE 24 MMOL/L (21-32); CHLORIDE 109 MMOL/L (98-107); CREATININE 1.6 MG/DL (0.55-1.30); POTASSIUM 4.2 MMOL/L (3.5-5.1); SODIUM 142 MMOL/L (136-145)
[2020-01-19] MEDS ORDERED: Vancomycin 1 GM in NS 275 ML IVPB SCH (08:00)
--- NOTE | 2020-01-19 08:23 | General Progress Note ---
Assessment/Plan Assessment/Plan: Extensive abscess around labia majora, status post incision and drainage of the abscess with extensive debridement, leukocytosis, possible sepsis, severe protein-calorie malnutrition, possible chronic renal failure, and diabetes poorly controlled. sepsis with +bcx PLAN ID to update antibiotics wound care monitor wbc follow up for change guarded impression, plan, and exam edited and reviewed in detail care discussed with RN Subjective Allergies: Coded Allergies: ASPIRIN (Verified Allergy, Unknown, 09/26/16) METFORMIN (Verified Allergy, Unknown, 09/26/16) Subjective ICU care noted on antibiotics ID noted Objective Last 24 Hour Vital Signs Date Time Temp Pulse Resp B/P (MAP) Pulse Ox O2 Delivery O2 Flow Rate FiO2 01/19/20 07:00 69 17 118/50 (72) 100 01/19/20 06:00 70 14 133/58 (83) 100 01/19/20 05:00 70 22 113/59 (77) 100 01/19/20 04:00 Nasal Cannula 2.0 01/19/20 04:00 98.0 72 20 127/47 (73) 100 01/19/20 03:19 80 01/19/20 03:00 76 13 142/81 (101) 100 01/19/20 02:45 80 148/99 (115) 100 01/19/20 02:00 72 11 118/50 (72) 100 01/19/20 01:00 77 12 119/44 (69) 99 01/19/20 00:00 Nasal Cannula 2.0 01/19/20 00:00 98.8 73 11 106/45 (65) 100 01/18/20 23:03 73 01/18/20 23:00 78 15 123/68 (86) 100 01/18/20 22:00 70 22 101/52 (68) 100 01/18/20 21:00 73 12 119/46 (70) 100 01/18/20 20:00 98.8 74 20 109/46 (67) 100 01/18/20 20:00 Nasal Cannula 2.0 01/18/20 19:30 76 20 93/40 (57) 100 01/18/20 19:29 76 01/18/20 19:05 98 Nasal Cannula 2.0 28 01/18/20 19:00 77 21 116/43 (67) 100 01/18/20 18:00 80 11 159/78 (105) 100 01/18/20 17:00 77 15 141/60 (87) 100 01/18/20 16:00 78 01/18/20 16:00 Nasal Cannula 2.0 01/18/20 16:00 98.3 78 10 116/58 (77) 100 01/18/20 15:00 74 10 108/45 (66) 100 01/18/20 14:06 74 12 99/46 (63) 97 01/18/20 13:00 74 9 96/45 (62) 97 01/18/20 12:00 76 01/18/20 12:00 Nasal Cannula 2.0 01/18/20 12:00 98.2 75 9 96/62 (73) 100 01/18/20 11:00 77 12 86/44 (58) 99 01/18/20 10:57 98.5 01/18/20 10:00 86 17 119/63 (81) 100 01/18/20 09:55 97 Nasal Cannula 2.0 28 01/18/20 09:00 80 11 123/51 (75) 100 Intake and Output 01/18/20 01/19/20 19:00 07:00 Intake Total 1594.999 ml 110 ml Output Total 305 ml 345 ml Balance 1289.999 ml -235 ml IV Total 1594.999 ml 110 ml Output Urine Total 305 ml 345 ml Laboratory Tests 01/19/20 04:20: White Blood Count 18.8H, Red Blood Count 3.41L, Hemoglobin 10.6L, Hematocrit 31.7L, Mean Corpuscular Volume 93, Mean Corpuscular Hemoglobin 31.1H, Mean Corpuscular Hemoglobin Concent 33.5, Red Cell Distribution Width 13.3, Platelet Count 294, Mean Platelet Volume 7.4, Neutrophils (%) (Auto) , Lymphocytes (%) ( Auto) , Monocytes (%) (Auto) , Eosinophils (%) (Auto) , Basophils (%) (Auto) , Neutrophils % (Manual) [Pending], Lymphocytes % (Manual) [Pending], Platelet Estimate [Pending], Platelet Morphology [Pending], Sodium Level 142, Potassium Level 4.2, Chloride Level 109H, Carbon Dioxide Level 24, Anion Gap 9, Blood Urea Nitrogen 34H, Creatinine 1.6H, Estimat Glomerular Filtration Rate 38.9, Glucose Level 259H, Calcium Level 9.4 Height (Feet): 5 Height (Inches): 4.00 Weight (Pounds): 175 Objective WDWN NAD clear breath sounds bilaterally without rhonchi or wheeze [id number] without MRG NABS nontender no HSM no CCE nonfocal Fernando Frank MD Jan 19, 2020 08:23
[2020-01-19] MEDS ORDERED: Hydromorphone 0.5mg/0.5ml inj IVP PRN (08:39)
[2020-01-19] MEDS ORDERED: Zolpidem 5mg tab ORAL PRN (08:40)
[2020-01-19] MEDS: traMADol 50mg tab ORAL PRN ×2 (09:10→17:58)
[2020-01-19] MEDS: Dakin's 0.25% (Half Strength) 16oz TOPIC SCH ×2 (09:13→17:30)
[2020-01-19] MEDS: Levemir Flexpen SUBQ SCH ×2 (09:20→20:52)
--- NOTE | 2020-01-19 11:05 | Infectious Diseases Prog Note ---
Assessment/Plan Assessment/Plan A; 1. Right perineal abscess, s/p incision and drainage. Culture : Enterococcus & E. coli 2. Bacteremia 3. Leukocytosis is improving. 4. Diabetes. 5. Hypertension. PLAN: 1. Continue IV vancomycin and Zosyn. 2. We will follow 2D echocardiogram. 3. We will follow up cultures and adjust antibiotics accordingly Subjective ROS Limited/Unobtainable: No Constitutional: Reports: no symptoms Respiratory: Reports: no symptoms Gastrointestinal/Abdominal: Reports: constipation Genitourinary: Reports: other - pain in surgical site Allergies: Coded Allergies: ASPIRIN (Verified Allergy, Unknown, 09/26/16) METFORMIN (Verified Allergy, Unknown, 09/26/16) Objective Vital Signs Last 24 Hour Vital Signs Date Time Temp Pulse Resp B/P (MAP) Pulse Ox O2 Delivery O2 Flow Rate FiO2 01/19/20 08:30 96 Nasal Cannula 2.0 28 01/19/20 08:00 97.5 72 18 139/70 (93) 98 01/19/20 08:00 Nasal Cannula 2.0 01/19/20 08:00 78 01/19/20 07:00 69 17 118/50 (72) 100 01/19/20 06:00 70 14 133/58 (83) 100 01/19/20 05:00 70 22 113/59 (77) 100 01/19/20 04:00 Nasal Cannula 2.0 01/19/20 04:00 98.0 72 20 127/47 (73) 100 01/19/20 03:19 80 01/19/20 03:00 76 13 142/81 (101) 100 01/19/20 02:45 80 148/99 (115) 100 01/19/20 02:00 72 11 118/50 (72) 100 01/19/20 01:00 77 12 119/44 (69) 99 01/19/20 00:00 Nasal Cannula 2.0 01/19/20 00:00 98.8 73 11 106/45 (65) 100 01/18/20 23:03 73 01/18/20 23:00 78 15 123/68 (86) 100 01/18/20 22:00 70 22 101/52 (68) 100 01/18/20 21:00 73 12 119/46 (70) 100 01/18/20 20:00 98.8 74 20 109/46 (67) 100 01/18/20 20:00 Nasal Cannula 2.0 01/18/20 19:30 76 20 93/40 (57) 100 01/18/20 19:29 76 01/18/20 19:05 98 Nasal Cannula 2.0 28 01/18/20 19:00 77 21 116/43 (67) 100 01/18/20 18:00 80 11 159/78 (105) 100 01/18/20 17:00 77 15 141/60 (87) 100 01/18/20 16:00 78 01/18/20 16:00 Nasal Cannula 2.0 01/18/20 16:00 98.3 78 10 116/58 (77) 100 01/18/20 15:00 74 10 108/45 (66) 100 01/18/20 14:06 74 12 99/46 (63) 97 01/18/20 13:00 74 9 96/45 (62) 97 01/18/20 12:00 76 01/18/20 12:00 Nasal Cannula 2.0 01/18/20 12:00 98.2 75 9 96/62 (73) 100 01/18/20 11:00 77 12 86/44 (58) 99 Height (Feet): 5 Height (Inches): 4.00 Weight (Pounds): 175 HEENT: mucous membranes moist, other - no teeth Respiratory/Chest: lungs clear Cardiovascular: normal rate Abdomen: soft, non tender Extremities: no edema, other - bilateral leg SCD Skin: other - surgial wound Neurologic/Psychiatric: alert, oriented x 3, responsive Microbiology Date/Time Source Procedure Growth Status 01/16/20 19:40 Blood Blood Culture - Preliminary Enterococcus Faecalis Gram Positive Cocci Resulted 01/16/20 19:27 Blood Blood Culture - Preliminary Gram Positive Cocci Resulted 01/17/20 01:15 Other Gram Stain - Final Resulted 01/17/20 01:15 Aerobic Culture - Preliminary Escherichia Coli Resulted 01/17/20 01:15 Other Anaerobic Culture Pending Resulted Laboratory Tests Test 01/19/20 04:20 White Blood Count 18.8 K/UL (4.8-10.8) H Red Blood Count 3.41 M/UL (4.20-5.40) L Hemoglobin 10.6 G/DL (12.0-16.0) L Hematocrit 31.7 % (37.0-47.0) L Mean Corpuscular Volume 93 FL (80-99) Mean Corpuscular Hemoglobin 31.1 PG (27.0-31.0) H Mean Corpuscular Hemoglobin Concent 33.5 G/DL (32.0-36.0) Red Cell Distribution Width 13.3 % (11.6-14.8) Platelet Count 294 K/UL (150-450) Mean Platelet Volume 7.4 FL (6.5-10.1) Neutrophils (%) (Auto) % (45.0-75.0) Lymphocytes (%) (Auto) % (20.0-45.0) Monocytes (%) (Auto) % (1.0-10.0) Eosinophils (%) (Auto) % (0.0-3.0) Basophils (%) (Auto) % (0.0-2.0) Differential Total Cells Counted 100 Neutrophils % (Manual) 79 % (45-75) H Lymphocytes % (Manual) 14 % (20-45) L Monocytes % (Manual) 6 % (1-10) Eosinophils % (Manual) 1 % (0-3) Basophils % (Manual) 0 % (0-2) Band Neutrophils 0 % (0-8) Platelet Estimate Adequate Platelet Morphology Normal Hypochromasia 1+ Sodium Level 142 MMOL/L (136-145) Potassium Level 4.2 MMOL/L (3.5-5.1) Chloride Level 109 MMOL/L (98-107) H Carbon Dioxide Level 24 MMOL/L (21-32) Anion Gap 9 mmol/L (5-15) Blood Urea Nitrogen 34 mg/dL (7-18) H Creatinine 1.6 MG/DL (0.55-1.30) H Estimat Glomerular Filtration Rate 38.9 mL/min (>60) Glucose Level 259 MG/DL (74-106) H Calcium Level 9.4 MG/DL (8.5-10.1) Current Medications Medications (Trade) Dose Ordered Sig/Jhon Route PRN Reason Start Time Stop Time Status Last Admin Dose Admin Acetaminophen (Tylenol) 650 mg Q4H PRN ORAL FEVER 01/19/20 08:38 02/18/20 08:37 Acetaminophen (Tylenol) 650 mg Q6H PRN ORAL Mild Pain (Pain Scale 1-3) 01/19/20 08:38 4/18/20 08:37 Chlorhexidine Gluconate (Naz-Hex 2%) 1 applic DAILY@2000 TOPIC 01/19/20 20:00 04/17/20 19:59 Dextrose (Dextrose 50%) 25 ml Q30M PRN IV Hypoglycemia 01/19/20 08:45 02/16/20 02:44 Dextrose (Dextrose 50%) 50 ml Q30M PRN IV Hypoglycemia 01/19/20 08:45 02/16/20 02:44 Hydromorphone HCl (Dilaudid) 0.5 mg Q3H PRN IVP Pain Score 1-3 01/19/20 08:39 01/26/20 08:38 Insulin Aspart (NovoLOG) BEFORE MEALS AND HS SUBQ 01/19/20 11:30 04/16/20 16:29 Insulin Detemir (Levemir) 5 units Q12HR SUBQ 01/19/20 10:00 04/16/20 09:59 01/19/20 09:20 Ondansetron HCl (Zofran) 4 mg Q6H PRN IVP Nausea & Vomiting 01/19/20 08:39 02/18/20 08:38 Pantoprazole (Protonix) 40 mg DAILY ORAL 01/19/20 09:00 02/18/20 08:59 01/19/20 09:10 Piperacillin Sod/ Tazobactam Sod 3.375 gm/Sodium Chloride 110 ml @ 27.5 mls/hr Q8H IVPB 01/19/20 10:00 01/24/20 01:59 01/19/20 09:12 Sodium Hypochlorite (Dakin's Half Strength) 1 applic BID TOPIC 01/19/20 10:00 02/16/20 09:59 01/19/20 09:13 Tramadol HCl (Ultram) 50 mg Q4H PRN ORAL PAIN 4-6 01/19/20 08:39 01/26/20 08:38 01/19/20 09:10 Vancomycin HCl (Vanco rx to dose) 1 ea DAILY PRN MISC VANCO 01/19/20 09:00 02/16/20 02:29 Vancomycin HCl 1 gm/Sodium Chloride 275 ml @ 183.708 mls/hr Q24H IVPB 01/19/20 08:00 01/24/20 07:59 01/19/20 09:12 Zolpidem Tartrate (Ambien) 5 mg DAILYPRN PRN ORAL Insomnia 01/19/20 08:40 01/26/20 08:39 Sterling Bernal MD Jan 19, 2020 11:05
[2020-01-19] MEDS ORDERED: Milk of Magnesia 30ml Ud ORAL PRN (12:30)
--- NOTE | 2020-01-19 17:46 | General Surgery Progress Note ---
General Surgery-Progress Note Subjective Procedure Performed I &d Of perineum and extensive debridement Symptoms: improved Objective Last 24 Hour Vital Signs Date Time Temp Pulse Resp B/P (MAP) Pulse Ox O2 Delivery O2 Flow Rate FiO2 01/19/20 16:00 98.2 83 18 153/83 (106) 99 01/19/20 16:00 Nasal Cannula 2.0 01/19/20 12:00 98.2 83 18 153/83 (106) 99 01/19/20 12:00 Nasal Cannula 2.0 01/19/20 12:00 79 01/19/20 12:00 97.2 81 20 142/79 (100) 99 01/19/20 08:30 96 Nasal Cannula 2.0 28 01/19/20 08:00 97.5 72 18 139/70 (93) 98 01/19/20 08:00 Nasal Cannula 2.0 01/19/20 08:00 78 01/19/20 07:00 69 17 118/50 (72) 100 01/19/20 06:00 70 14 133/58 (83) 100 01/19/20 05:00 70 22 113/59 (77) 100 01/19/20 04:00 Nasal Cannula 2.0 01/19/20 04:00 98.0 72 20 127/47 (73) 100 01/19/20 03:19 80 01/19/20 03:00 76 13 142/81 (101) 100 01/19/20 02:45 80 148/99 (115) 100 01/19/20 02:00 72 11 118/50 (72) 100 01/19/20 01:00 77 12 119/44 (69) 99 01/19/20 00:00 Nasal Cannula 2.0 01/19/20 00:00 98.8 73 11 106/45 (65) 100 01/18/20 23:03 73 01/18/20 23:00 78 15 123/68 (86) 100 01/18/20 22:00 70 22 101/52 (68) 100 01/18/20 21:00 73 12 119/46 (70) 100 01/18/20 20:00 98.8 74 20 109/46 (67) 100 01/18/20 20:00 Nasal Cannula 2.0 01/18/20 19:30 76 20 93/40 (57) 100 01/18/20 19:29 76 01/18/20 19:05 98 Nasal Cannula 2.0 28 01/18/20 19:00 77 21 116/43 (67) 100 01/18/20 18:00 80 11 159/78 (105) 100 I&O Intake and Output 01/18/20 01/19/20 19:00 07:00 Intake Total 1594.999 ml 110 ml Output Total 305 ml 345 ml Balance 1289.999 ml -235 ml IV Total 1594.999 ml 110 ml Output Urine Total 305 ml 345 ml Dressing: dry Wound: clean, other - open no drainageno erythema induration mond of pubis Respiratory: clear Abdomen: soft, flat Extremities: no tenderness Laboratory Tests Test 01/19/20 04:20 White Blood Count 18.8 K/UL (4.8-10.8) H Red Blood Count 3.41 M/UL (4.20-5.40) L Hemoglobin 10.6 G/DL (12.0-16.0) L Hematocrit 31.7 % (37.0-47.0) L Mean Corpuscular Volume 93 FL (80-99) Mean Corpuscular Hemoglobin 31.1 PG (27.0-31.0) H Mean Corpuscular Hemoglobin Concent 33.5 G/DL (32.0-36.0) Red Cell Distribution Width 13.3 % (11.6-14.8) Platelet Count 294 K/UL (150-450) Mean Platelet Volume 7.4 FL (6.5-10.1) Neutrophils (%) (Auto) % (45.0-75.0) Lymphocytes (%) (Auto) % (20.0-45.0) Monocytes (%) (Auto) % (1.0-10.0) Eosinophils (%) (Auto) % (0.0-3.0) Basophils (%) (Auto) % (0.0-2.0) Differential Total Cells Counted 100 Neutrophils % (Manual) 79 % (45-75) H Lymphocytes % (Manual) 14 % (20-45) L Monocytes % (Manual) 6 % (1-10) Eosinophils % (Manual) 1 % (0-3) Basophils % (Manual) 0 % (0-2) Band Neutrophils 0 % (0-8) Platelet Estimate Adequate Platelet Morphology Normal Hypochromasia 1+ Sodium Level 142 MMOL/L (136-145) Potassium Level 4.2 MMOL/L (3.5-5.1) Chloride Level 109 MMOL/L (98-107) H Carbon Dioxide Level 24 MMOL/L (21-32) Anion Gap 9 mmol/L (5-15) Blood Urea Nitrogen 34 mg/dL (7-18) H Creatinine 1.6 MG/DL (0.55-1.30) H Estimat Glomerular Filtration Rate 38.9 mL/min (>60) Glucose Level 259 MG/DL (74-106) H Calcium Level 9.4 MG/DL (8.5-10.1) Assessment Post-op Diagnosis Abscess of right labia major Plan Additional Comments continue as before antibiotics need to be changed by Daren Monaco MD Jan 19, 2020 17:46
[2020-01-19] MEDS: Docusate Sod/Senna tab ORAL SCH (17:58)
[2020-01-19] MEDS ORDERED: Dyna-Hex 2% Top Sol 2oz TOPIC SCH (20:00)
[2020-01-19] MEDS: Ciprofloxacin 500mg tab ORAL SCH (20:49)
[2020-01-20] MEDS: traMADol 50mg tab ORAL PRN ×2 (00:12→07:17)
[2020-01-20 04:00] VITALS: BP 146/64
[2020-01-20] MEDS: NovoLOG Insulin Flexpen SUBQ SCH ×3 (06:17→16:30)
[2020-01-20 06:53] LABS: BASOPHILS % (AUTO) 0.6 % (0.0-2.0); EOSINOPHILS % (AUTO) 0.4 % (0.0-3.0); HEMATOCRIT 31.7 % (37.0-47.0); HEMOGLOBIN 10.7 G/DL (12.0-16.0); LYMPHOCYTES % (AUTO) 12.6 % (20.0-45.0); MEAN CORPUSCULAR VOLUME 93 FL (80-99); MONOCYTES % (AUTO) 7.2 % (1.0-10.0); NEUTROPHILS % (AUTO) 79.3 % (45.0-75.0); PLATELET COUNT 308 K/UL (150-450); RED BLOOD COUNT 3.41 M/UL (4.20-5.40); RED CELL DISTRIBUTION WIDTH 13.2 % (11.6-14.8); WHITE BLOOD COUNT 14.9 K/UL (4.8-10.8)
--- NOTE | 2020-01-20 08:57 | General Progress Note ---
Assessment/Plan Assessment/Plan: Extensive abscess around labia majora, status post incision and drainage of the abscess with extensive debridement, leukocytosis, possible sepsis, severe protein-calorie malnutrition, possible chronic renal failure, and diabetes poorly controlled. sepsis with +bcx PLAN ID to update antibiotics sensitive to levaquin wound care monitor wbc follow up for change guarded dc planning once cleared impression, plan, and exam edited and reviewed in detail care discussed with RN Subjective Allergies: Coded Allergies: ASPIRIN (Verified Allergy, Unknown, 09/26/16) METFORMIN (Verified Allergy, Unknown, 09/26/16) Subjective wbc better on antibiotics ID noted Objective Last 24 Hour Vital Signs Date Time Temp Pulse Resp B/P (MAP) Pulse Ox O2 Delivery O2 Flow Rate FiO2 01/20/20 04:00 Nasal Cannula 2.0 01/20/20 04:00 79 01/20/20 04:00 98.8 81 16 146/64 (91) 96 01/20/20 00:00 75 01/19/20 23:59 98.0 71 16 131/50 (77) 99 01/19/20 23:47 Nasal Cannula 2.0 01/19/20 20:00 Nasal Cannula 2.0 01/19/20 20:00 98.4 82 18 143/80 (101) 99 01/19/20 20:00 83 01/19/20 16:00 98.2 83 18 153/83 (106) 99 01/19/20 16:00 78 01/19/20 16:00 Nasal Cannula 2.0 01/19/20 12:00 98.2 83 18 153/83 (106) 99 01/19/20 12:00 Nasal Cannula 2.0 01/19/20 12:00 79 01/19/20 12:00 97.2 81 20 142/79 (100) 99 Intake and Output 01/19/20 01/20/20 19:00 07:00 Intake Total 120 ml 50 ml Output Total 515 ml Balance -395 ml 50 ml Intake Oral 120 ml 50 ml Output Urine Total 515 ml Laboratory Tests 01/20/20 06:40: White Blood Count 14.9H, Red Blood Count 3.41L, Hemoglobin 10.7L, Hematocrit 31.7L, Mean Corpuscular Volume 93, Mean Corpuscular Hemoglobin 31.4H, Mean Corpuscular Hemoglobin Concent 33.7, Red Cell Distribution Width 13.2, Platelet Count 308, Mean Platelet Volume 6.6, Neutrophils (%) (Auto) 79.3H, Lymphocytes ( %) (Auto) 12.6L, Monocytes (%) (Auto) 7.2, Eosinophils (%) (Auto) 0.4, Basophils (%) (Auto) 0.6, Vancomycin Level Trough 12.0 Height (Feet): 5 Height (Inches): 4.00 Weight (Pounds): 220 Objective WDWN NAD clear breath sounds bilaterally without rhonchi or wheeze [id number] without MRG NABS nontender no HSM no CCE nonfocal Fernando Frank MD Jan 20, 2020 08:57
[2020-01-20 09:00] VITALS: BP 162/74
[2020-01-20] MEDS ORDERED: Vancomycin 500 MG in NS 110 ML IVPB SCH (09:00)
[2020-01-20] MEDS: Ciprofloxacin 500mg tab ORAL SCH (09:22)
[2020-01-20] MEDS: Docusate Sod/Senna tab ORAL SCH ×2 (09:22→18:00)
[2020-01-20] MEDS: Levemir Flexpen SUBQ SCH (09:23)
[2020-01-20] MEDS: Dakin's 0.25% (Half Strength) 16oz TOPIC SCH ×2 (09:25→18:00)
--- NOTE | 2020-01-20 11:00 | Infectious Diseases Prog Note ---
Assessment/Plan Assessment/Plan antibiotics : vancomycin iv, po ciprofloxacin A 1. enterococcus sepsis 2. + blood culture with coag neg staph likely contaminated 3. e.coli perineal abscess s/p i and d 4. leucocytosis improving 5. diabetes mellitus 6. hypertension P 1. continue iv vancomycin in hospital 2. po augmentin on discharge 10 more days 3. continue po ciprofloxacin 10 more days 4. will follow up cultures 5. d/w Dr Frank Subjective Constitutional: Denies: fever, chills Respiratory: Denies: shortness of breath, dry cough Gastrointestinal/Abdominal: Denies: nausea, vomiting, diarrhea Musculoskeletal: Denies: pain Allergies: Coded Allergies: ASPIRIN (Verified Allergy, Unknown, 09/26/16) METFORMIN (Verified Allergy, Unknown, 09/26/16) Objective Vital Signs Last 24 Hour Vital Signs Date Time Temp Pulse Resp B/P (MAP) Pulse Ox O2 Delivery O2 Flow Rate FiO2 01/20/20 04:00 Nasal Cannula 2.0 01/20/20 04:00 79 01/20/20 04:00 98.8 81 16 146/64 (91) 96 01/20/20 00:00 75 01/19/20 23:59 98.0 71 16 131/50 (77) 99 01/19/20 23:47 Nasal Cannula 2.0 01/19/20 20:00 Nasal Cannula 2.0 01/19/20 20:00 98.4 82 18 143/80 (101) 99 01/19/20 20:00 83 01/19/20 16:00 98.2 83 18 153/83 (106) 99 01/19/20 16:00 78 01/19/20 16:00 Nasal Cannula 2.0 01/19/20 12:00 98.2 83 18 153/83 (106) 99 01/19/20 12:00 Nasal Cannula 2.0 01/19/20 12:00 79 01/19/20 12:00 97.2 81 20 142/79 (100) 99 Height (Feet): 5 Height (Inches): 4.00 Weight (Pounds): 220 Respiratory/Chest: lungs clear Cardiovascular: normal rate, regular rhythm, no gallop/murmur Abdomen: soft, non tender Extremities: no edema, other - right groin in dressings Laboratory Tests Test 01/20/20 06:40 White Blood Count 14.9 K/UL (4.8-10.8) H Red Blood Count 3.41 M/UL (4.20-5.40) L Hemoglobin 10.7 G/DL (12.0-16.0) L Hematocrit 31.7 % (37.0-47.0) L Mean Corpuscular Volume 93 FL (80-99) Mean Corpuscular Hemoglobin 31.4 PG (27.0-31.0) H Mean Corpuscular Hemoglobin Concent 33.7 G/DL (32.0-36.0) Red Cell Distribution Width 13.2 % (11.6-14.8) Platelet Count 308 K/UL (150-450) Mean Platelet Volume 6.6 FL (6.5-10.1) Neutrophils (%) (Auto) 79.3 % (45.0-75.0) H Lymphocytes (%) (Auto) 12.6 % (20.0-45.0) L Monocytes (%) (Auto) 7.2 % (1.0-10.0) Eosinophils (%) (Auto) 0.4 % (0.0-3.0) Basophils (%) (Auto) 0.6 % (0.0-2.0) Vancomycin Level Trough 12.0 ug/mL (5.0-12.0) Current Medications Medications (Trade) Dose Ordered Sig/Jhon Route PRN Reason Start Time Stop Time Status Last Admin Dose Admin Acetaminophen (Tylenol) 650 mg Q4H PRN ORAL FEVER 01/19/20 08:38 02/18/20 08:37 Acetaminophen (Tylenol) 650 mg Q6H PRN ORAL Mild Pain (Pain Scale 1-3) 01/19/20 08:38 02/18/20 08:37 Chlorhexidine Gluconate (Naz-Hex 2%) 1 applic DAILY@1999 TOPIC 01/19/20 20:00 04/17/20 19:59 01/19/20 20:50 Ciprofloxacin (Cipro 500mg tab) 500 mg EVERY 12 HOURS ORAL 01/19/20 21:00 01/26/20 20:59 01/20/20 09:22 Dextrose (Dextrose 50%) 25 ml Q30M PRN IV Hypoglycemia 01/19/20 08:45 02/16/20 02:44 Dextrose (Dextrose 50%) 50 ml Q30M PRN IV Hypoglycemia 01/19/20 08:45 02/16/20 02:44 Hydromorphone HCl (Dilaudid) 0.5 mg Q3H PRN IVP Pain Score 1-3 01/19/20 08:39 01/26/20 08:38 Insulin Aspart (NovoLOG) BEFORE MEALS AND HS SUBQ 01/19/20 11:30 04/16/20 16:29 01/20/20 06:17 Insulin Detemir (Levemir) 5 units Q12HR SUBQ 01/19/20 10:00 04/16/20 09:59 01/20/20 09:23 Magnesium Hydroxide (Mom) 30 ml DAILYPRN PRN ORAL Constipation 01/19/20 12:30 02/18/20 12:29 01/19/20 17:58 Ondansetron HCl (Zofran) 4 mg Q6H PRN IVP Nausea & Vomiting 01/19/20 08:39 02/18/20 08:38 Pantoprazole (Protonix) 40 mg DAILY ORAL 01/19/20 09:00 02/18/20 08:59 01/20/20 09:22 Senna/Docusate Sodium (Ritu-Colace) 1 tab TWICE A DAY ORAL 01/19/20 18:00 02/18/20 17:59 01/20/20 09:22 Sodium Hypochlorite (Dakin's Half Strength) 1 applic BID TOPIC 01/19/20 10:00 02/16/20 09:59 01/20/20 09:25 Tramadol HCl (Ultram) 50 mg Q4H PRN ORAL PAIN 4-6 01/19/20 08:39 01/26/20 08:38 01/20/20 07:17 Vancomycin HCl (Vanco rx to dose) 1 ea DAILY PRN MISC VANCO 01/19/20 09:00 02/16/20 02:29 Vancomycin HCl 500 mg/Sodium Chloride 110 ml @ 110 mls/hr Q12H IVPB 01/20/20 09:00 01/25/20 08:59 01/20/20 09:32 Zolpidem Tartrate (Ambien) 5 mg DAILYPRN PRN ORAL Insomnia 01/19/20 08:40 01/26/20 08:39 Urbano Quiroz MD Jan 20, 2020 11:00
[2020-01-20 12:00] VITALS: BP 130/70
--- NOTE | 2020-01-20 12:21 | General Surgery Progress Note ---
General Surgery-Progress Note Subjective Procedure Performed I &d Of perineum and extensive debridement Objective Last 24 Hour Vital Signs Date Time Temp Pulse Resp B/P (MAP) Pulse Ox O2 Delivery O2 Flow Rate FiO2 01/20/20 09:00 85 01/20/20 09:00 98.1 86 17 162/74 (103) 98 01/20/20 08:00 Nasal Cannula 2.0 01/20/20 04:00 Nasal Cannula 2.0 01/20/20 04:00 79 01/20/20 04:00 98.8 81 16 146/64 (91) 96 01/20/20 00:00 75 01/19/20 23:59 98.0 71 16 131/50 (77) 99 01/19/20 23:47 Nasal Cannula 2.0 01/19/20 20:00 Nasal Cannula 2.0 01/19/20 20:00 98.4 82 18 143/80 (101) 99 01/19/20 20:00 83 01/19/20 16:00 98.2 83 18 153/83 (106) 99 01/19/20 16:00 78 01/19/20 16:00 Nasal Cannula 2.0 I&O Intake and Output 01/19/20 01/20/20 19:00 07:00 Intake Total 120 ml 50 ml Output Total 515 ml Balance -395 ml 50 ml Intake Oral 120 ml 50 ml Output Urine Total 515 ml Dressing: dry Wound: intact, other - cavity open no drainage no erythema Respiratory: clear Abdomen: soft, non-tender Laboratory Tests Test 01/20/20 06:40 White Blood Count 14.9 K/UL (4.8-10.8) H Red Blood Count 3.41 M/UL (4.20-5.40) L Hemoglobin 10.7 G/DL (12.0-16.0) L Hematocrit 31.7 % (37.0-47.0) L Mean Corpuscular Volume 93 FL (80-99) Mean Corpuscular Hemoglobin 31.4 PG (27.0-31.0) H Mean Corpuscular Hemoglobin Concent 33.7 G/DL (32.0-36.0) Red Cell Distribution Width 13.2 % (11.6-14.8) Platelet Count 308 K/UL (150-450) Mean Platelet Volume 6.6 FL (6.5-10.1) Neutrophils (%) (Auto) 79.3 % (45.0-75.0) H Lymphocytes (%) (Auto) 12.6 % (20.0-45.0) L Monocytes (%) (Auto) 7.2 % (1.0-10.0) Eosinophils (%) (Auto) 0.4 % (0.0-3.0) Basophils (%) (Auto) 0.6 % (0.0-2.0) Vancomycin Level Trough 12.0 ug/mL (5.0-12.0) Assessment Post-op Diagnosis Abscess of right labia major Plan Additional Comments continue as before Daren Vivas MD Jan 20, 2020 12:21
[2020-01-20 16:00] VITALS: BP 132/62
[2020-01-20] MEDS ORDERED: NS 500ML ONE (18:20)
[2020-01-20] MEDS ORDERED: NS 275ml ONE (18:20)
[2020-01-20] MEDS ORDERED: Tubing IV Secondary IV ONE (18:20)
[2020-01-20] MEDS ORDERED: Augmentin 875mg Tab ORAL SCH (21:00)
--- NOTE | 2020-01-22 15:34 | Discharge Summary ---
Discharge Summary Discharge Summary _ DATE OF ADMISSION: 01/17/2020 DATE OF DISCHARGE: 01/20/2020 DISCHARGED BY: Dr. Jordan Frank CONSULTANTS: Dr. Daren Quiroz BRIEF HOSPITAL COURSE: Patient is a 69-year-old female, who presented to ED with pain and swelling on the right side of the perineum. The patient had worsening symptoms over the past 1 week. Patient was diagnosed with cellulitis and has been placed on oral antibiotics. Family member stated that for the past week, there was significant decline in functioning. Patient was also not taking her insulin like she normally does. She has medical history notable for diabetes, hypertension and Benoit's palsy. Upon evaluation at ED, blood work showed WBC elevated to 30. Hemoglobin and hematocrit were stable. BUN was 43, creatinine 1.7. Lactic acid 2.3. CT scan showed extensive stranding and fluid attenuation involving the right perineum including the labial region and region of the vulva on the right. There was a large amount of soft tissue gas in the anterior right perineum with gas extending superiorly and gas present superficial to the rectus sheath near the region of the pelvic inlet. Concerning for necrotizing fasciitis. She was started on broad-spectrum IV antibiotics and aggressive IV resuscitation. A stat surgical consultation was done. Patient was septic and requires an emergency and extensive debridement of the infected area. On January 17, 2020, she underwent incision and drainage of the perineum with extensive debridement. Wound was packed with Kerlix roll soaked in Betadine. The patient tolerated the procedure well and was transferred to the ICU and extubated. Postoperatively, she was continued on IV hydration. She was given pain control. She was closely followed by infectious diseases specialist. She was given IV vancomycin and Zosyn. Blood culture showed growth of Staphylococcus and enterococcus. Operative culture showed growth of ESBL E. coli. Venous duplex was negative for DVT. She was continued on wound care. Blood culture likely contaminated. Tissue pathology report showed benign squamous lined mucosa and submucosal tissue with marked acute inflammation and surface erosion consistent with an abscess. Leukocytosis down trended. Patient was cleared for discharge to SNF. To continue p.o. ciprofloxacin and Augmentin x10 more days. FINAL DIAGNOSES: Enterococcus sepsis Positive blood culture with coagulase-negative staph, likely contaminated E. coli perineal abscess status post incision and drainage Diabetes mellitus poorly controlled Hypertension Severe protein calorie malnutrition Possible chronic renal failure DISPOSITION: DC to SNF. I have been assigned to complete a discharge summary on this account, I was not involved with the patient's management.--KIKE Sanders Jacqueline Robles NP Jan 22, 2020 15:34
--- NOTE | 2020-02-03 10:23 | Coder Physician Query ---
Clarification is required for compliance, coding accuracy, and to reflect severity of illness for this patient Dear Dr. 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 POSTOPERATIVE DIAGNOSIS: Extensive abscess of the right labia majora. OPERATION: Incision and drainage of the abscess with extensive debridement. Patient had a large amount of infected necrotic tissue and extensive debridement was performed and the major part of the infected necrotic tissue was removed and the part of the skin of the labia majora was removed. Finally, a very large cavity was left, which was about 15 cm in length and about 6 to 7 cm in width and it was deep to the bone and the fascia. ---- Dr. Vivas : Because there is documentation in the medical record of "Debridement," clarification is needed. Please document whether this is "Excisional" or "Nonexcisional" Debridement" of the wound, infection or burn. Specific type of debridement performed: [] Excisional: Please document the depth of tissue [] Skin [] Subcutaneous tissue and Fascia [] Muscle [] Bone [] Nonexcisional: Daren Vivas M.D Date Please also document in your Progress Notes and/or Discharge Summary and indicate if the condition was present on admission. [id number]
== END 2020-01-20 18:21 | DRG 853 ==
LOC: EMR 22:00 → SUR 01-17 00:10 → EDBEDREQ 01-17 00:19 → ICU 01-17 02:00 → 2E 01-19 08:02
PROC: 0J9B0ZZ Drainage of Perineum Subcutaneous Tissue and Fascia, Open Approach (ICD-10-PCS; principal; 2020-01-17 00:30)
DX: A41.81 Sepsis due to Enterococcus (principal); E43 Unspecified severe protein-calorie malnutrition; N76.4 Abscess of vulva; Z88.6 Allergy status to analgesic agent; Z88.8 Allergy status to other drugs, medicaments and biological substances; I10 Essential (primary) hypertension; G51.0 Bell's palsy; E11.65 Type 2 diabetes mellitus with hyperglycemia; I12.9 Hypertensive chronic kidney disease with stage 1 through stage 4 chronic kidney disease, or unspecified chronic kidney disease; E11.22 Type 2 diabetes mellitus with diabetic chronic kidney disease; N18.9 Chronic kidney disease, unspecified; F17.200 Nicotine dependence, unspecified, uncomplicated
CPT/HCPCS: 36415; 74176; 80048; 80053; 80202; 81003; 82962; 83036; 83605; 83690; 83735; 85007; 85025; 86850; 86900; 86901; 87040; 87070; 87075; 87181; 87205; 93005; 93306; 93970; 94003; 94150; 96365; 96372; 96375; 96376; 99285; C9399; J1815; J2250; J2405; J7030; S5561